=== PATIENT | male | born 1955 | race Caucasian/White ===

== ENCOUNTER → 2020-09-04 09:54 | Outpatient (BNVA) | payer OTHER, SELFPAY | PROVIDERS: PCP Internal Medicine Pulmonary Disease; Visit Provider Internal Medicine ==

== ENCOUNTER 2020-10-21 06:35 | Outpatient (REF) | payer OTHER, SELFPAY | END 2020-10-21 06:36 | disposition home or self-care (01) | LOC: HO.RADIR 06:35 | PROVIDERS: Visit Provider Internal Medicine | DX: G57.92 Unspecified mononeuropathy of left lower limb (principal) | CPT/HCPCS: 64450 ==

== ENCOUNTER → 2020-10-26 12:58 | Outpatient (BNVA) | payer OTHER, SELFPAY | PROVIDERS: PCP Internal Medicine Pulmonary Disease; Visit Provider Internal Medicine ==

== ENCOUNTER 2021-02-10 06:16 | Outpatient (REF) | payer MEDICARE, OTHER, SELFPAY | END 2021-02-10 06:17 | disposition home or self-care (01) | LOC: HO.RADIR 06:16 | PROVIDERS: Visit Provider Internal Medicine | DX: G57.90 Unspecified mononeuropathy of unspecified lower limb (principal) | CPT/HCPCS: 64555; C1778 ==

== ENCOUNTER → 2021-02-15 | Outpatient (BNVA) | payer MEDICARE, OTHER, SELFPAY | PROVIDERS: PCP Nurse Practitioner Family; Visit Provider Internal Medicine | DX: G57.90 Unspecified mononeuropathy of unspecified lower limb (principal) | CPT/HCPCS: 99212 ==

== ENCOUNTER → 2021-02-19 09:17 | Outpatient (BNVA) | payer MEDICARE, OTHER, SELFPAY | PROVIDERS: PCP Nurse Practitioner Family; Visit Provider Internal Medicine | DX: G57.90 Unspecified mononeuropathy of unspecified lower limb (principal) | CPT/HCPCS: 99212 ==

== ENCOUNTER → 2021-03-15 12:09 | Outpatient (BNVA) | payer MEDICARE, OTHER, SELFPAY | PROVIDERS: PCP Nurse Practitioner Family; Visit Provider Internal Medicine | DX: G57.90 Unspecified mononeuropathy of unspecified lower limb (principal) | CPT/HCPCS: Q3014 ==

== ENCOUNTER 2021-03-17 08:50 | Outpatient (REF) | payer MEDICARE, OTHER, SELFPAY ==
[2021-03-17 11:24] LABS: Appearance Urine CLEAR; Color Urine YELLOW; Glucose Urine UA NEG (NEG); Leukocyte Esterase Urine NEG (NEG); Nitrite Urine NEG (NEG); Specific Gravity - Urine 1.015 (1.005-1.025); Urine Blood NEG (NEG); Urine Ketones NEG (NEG); Urine Protein NEG (NEG-TRACE)
[2021-03-17 11:55] LABS: Alanine Aminotransferase 22 U/L (0-40); Albumin Level 4.3 g/dL (3.5-5.0); Alkaline Phosphatase 93 U/L (39-117); Anion Gap 11 (12-20); Aspartate Amino Transferase 24 U/L (5-37); Bilirubin Total 0.9 mg/dL (0.0-1.0); Blood Urea Nitrogen 15 mg/dL (9-16); Calcium 9.2 mg/dL (8.4-10.2); Carbon Dioxide 30 mmol/L (22-29); Chloride 99 mmol/L (96-108); Cholesterol 218 mg/dL; Estimated Glomerular Filt Rate > 60; Glucose Fasting 109 mg/dL (60-99); HDL Cholesterol 81 mg/dL; LDL Cholesterol Calculated 125 mg/dl; Potassium 4.6 mmol/L (3.3-5.1); Sodium 135 mmol/L (135-145); Total Protein 7.3 g/dL (6.5-8.0); Triglycerides 63 mg/dL
[2021-03-17 12:05] LABS: Prostate Specific Antigen Scr 0.17 ng/mL (<0.05-4.0); TSH reflex Free T4 1.76 uIU/mL (0.32-4.0)
== END 2021-03-17 08:51 | disposition home or self-care (01) ==
LOC: HO.HMGCLDS 08:50
PROVIDERS: PCP Nurse Practitioner Family; Visit Provider Nurse Practitioner Family
DX: Z00.00 Encounter for general adult medical examination without abnormal findings (principal); Z13.220 Encounter for screening for lipoid disorders; Z12.5 Encounter for screening for malignant neoplasm of prostate; Z13.29 Encounter for screening for other suspected endocrine disorder
CPT/HCPCS: 36415; 80053; 80061; 81003; 84153; 84443

== ENCOUNTER → 2021-04-05 11:03 | Outpatient (BNVA) | payer MEDICARE, OTHER, SELFPAY | PROVIDERS: PCP Nurse Practitioner Family; Visit Provider Internal Medicine | DX: G57.90 Unspecified mononeuropathy of unspecified lower limb (principal); G90.522 Complex regional pain syndrome I of left lower limb | CPT/HCPCS: 99212 ==

== ENCOUNTER 2021-04-30 15:33 | Outpatient (REF) | payer OTHER, MEDICARE, SELFPAY ==
--- NOTE | ~2021-04-30 | CT_ITS ---
EXAMINATION: CT CHEST SCREENING CLINICAL INFORMATION: Nicotine dependence. COMPARISON: None. TECHNIQUE: Multidetector volumetric CT imaging of the chest is performed without contrast using low dose technique. Additional 2-D coronal and sagittal reformatted images and axial 3-D maximum intensity projection (MIP) images are generated on the CT workstation. This CT examination was performed using dose optimization techniques as appropriate, variously including the following: *Automated exposure control *Adjustment of mA and/or kV according to patient size (this includes techniques or standardized protocols for targeted exams where dose is matched to indication/reason for exam; i.e. extremities or head) *Use of iterative reconstruction technique DLP: 47 mGy-cm FINDINGS: LUNGS: The lungs are well expanded and clear of acute pneumonic process. There is a small 3 mm subpleural nodule left upper lobe axial image 157/6. No additional pulmonary nodules, mass, consolidation, or ground-glass density seen. There is no bronchiectasis. MEDIASTINUM: The thyroid lobes are symmetric and normal. The central trachea and the bronchi are widely patent. The heart size and the great vessels are normal caliber. No abnormal sized mediastinal or hilar lymph nodes seen. The heart size and the great vessels are normal caliber. There are trace coronary artery calcifications. PLEURA: There is no pleural effusion. No pleural mass or thickening. AXILLA: No lymphadenopathy. UPPER ABDOMEN: The visualized liver, spleen and pancreas appear unremarkable. OSSEOUS STRUCTURES: There is mild ventral spondylosis mid dorsal spine with mild vacuum disc phenomena. No aggressive lytic or sclerotic process or fracture seen. CT/CT lung screening IMPRESSION: 3 mm subpleural nodule left upper lobe. ASSESSMENT: Lung-RADS category 2: Benign. RECOMMENDATION: Low-dose annual CT chest.
== END 2021-04-30 15:34 | disposition home or self-care (01) ==
LOC: HO.CT 15:33
PROVIDERS: PCP Nurse Practitioner Family; Visit Provider Physician Assistant Medical
DX: Z12.2 Encounter for screening for malignant neoplasm of respiratory organs (principal); F17.210 Nicotine dependence, cigarettes, uncomplicated
CPT/HCPCS: 71271; G0296

== ENCOUNTER 2021-05-04 10:35 | Outpatient (REF) | payer MEDICARE, SELFPAY ==
--- NOTE | ~2021-05-04 | XR_ITS ---
EXAMINATION: XR CERVICAL SPINE CLINICAL INFORMATION: Muscle spasm COMPARISON: None TECHNIQUE: 3 views of the cervical spine were obtained. FINDINGS: There is straightening of cervical lordosis with grade 1 anterior listhesis of C2 over C3 and C2-C3 over C4 with significant narrowing of C3-C4, C4-C5, C5-C6 and C6-C7 intervertebral disc spaces. There is no evidence of fracture or subluxation. Soft tissues are unremarkable. XR/XR cervical spine 3V IMPRESSION: Marked degenerative changes of cervical spine.
== END 2021-05-04 10:36 | disposition home or self-care (01) ==
LOC: HO.HMGCX 10:35
PROVIDERS: Visit Provider Internal Medicine
DX: M62.838 Other muscle spasm (principal)
CPT/HCPCS: 72040

== ENCOUNTER 2021-05-19 11:54 | Day surgery (SDC) | payer MEDICARE, SELFPAY ==
[2021-05-13 13:21] VITALS: BMI 18.8
--- NOTE | ~2021-05-19 | FL_ITS ---
EXAMINATION: XR FLUOROSCOPY WITH IMAGES CLINICAL INFORMATION: Lumbar spinal cord stimulator trial COMPARISON: None. TECHNIQUE: Fluoroscopy performed by David. Fluoroscopy time: 8.0 minutes DAP: 16.7 Gy-cm2 Images: 4 FINDINGS: 4 fluoroscopic spot views at the level of the lower thoracic spine demonstrate the distal portions of a spinal stimulator device. FL/FL guidance in OR IMPRESSION: Placement of a spinal stimulator device. Please see the operative report for further information.
[2021-05-19 12:02] VITALS: BP 154/83; PULSE 74; RESP 18; TEMP 36.7; O2SAT 99
--- NOTE | 2021-05-19 13:11 | HO.ANESPROP2 ---
[facility] Active Problems Active Problems: All Active Problems (Updated 05/13/21 @ 13:21 by Melia Geller RN) Spasm of cervical paraspinous muscle (Acute) Personal history of nicotine dependence (Acute) CRPS (complex regional pain syndrome), lower limb (Acute) Neuritis of foot (Acute) Past Medical History Medical History Anxiety disorder Back pain COVID-19 vaccine series completed CRPS (complex regional pain syndrome), lower limb History of testicular cancer Left-sided low back pain with sciatica Neuritis of foot Personal history of nicotine dependence Surgical History Surgical History History of colonoscopy (~2019) History of esophagogastroduodenoscopy (EGD) (~2019) History of orchiectomy History of Problems with Anesthesia: No Social History Social History Housing: House Patient Tobacco Use Status: Current everyday Tobacco user Tobacco use type: Cigarette Cigarettes Per Day: 6 Years Smoked: 52 e-Cigarette/Vaping Use: Currently Using Second Hand Smoke Exposure: No Advance Directives: No Advance Directives Information Provided: Yes Advance Directives on File: No service: No Current occupational status: retired and disabled Meds Allergies Allergy/AdvReac Type Severity Reaction Status Date / Time No Known Allergies Allergy Verified 05/11/21 09:41 [No Known Allergies*] Home Medications Medication Instructions Recorded Confirmed Last Taken Type finasteride 5 mg tablet 5 mg PO DAILY 09/04/20 05/13/21 Unknown History testosterone 50 mg/5 gram (1 %) 50 mg TRANSDERMAL DAILY 09/04/20 05/13/21 Unknown History transdermal gel vitamin B complex (B 1 tab PO DAILY 09/04/20 05/13/21 Unknown History Complex-Vitamin B12) melatonin 5 mg capsule 8 mg PO .HS cap 04/05/21 05/13/21 Unknown History Exam Exam Date and Time: May 19, 2021 1311 Height,Weight and Vital Signs: Height 5 ft 11 in Weight 61.235 kg Last Vital Signs Temp 98.1 F 05/19/21 12:02 Pulse 74 05/19/21 12:02 Resp 18 05/19/21 12:02 BP 154/83 H 05/19/21 12:02 Pulse Ox 99 05/19/21 12:02 Airway Mallampati Class: II TM Dist: >3cm Neck ROM: Full Loose/Missing/Broken Teeth: No Heart: RRR Lungs: CTA Assessment and Plan Assessment Anesthesia Assessment: Anesthesia Plan Discussed and Chart Reviewed Final Anesthetic Review History of Problems with Anesthesia: No NPO: Yes ASA Class: II Final Preanesthetic Review: Meds/Allgs Chart Reviewed, Consent Obtained/Reviewed and Anes Risks/Benef Reviewed Patient Risk: Low Procedure Risk: Low Anesthetic Plan Anesthetic Plan: MAC: Disposition: Standard PACU
--- NOTE | 2021-05-19 13:13 | MHC.SHP ---
Pre-Procedural Eval Section A Date of Service: 05/19/21 The patient is an INPATIENT: No Changes since office visit: Yes New Medical Problems and Yes Patient answered all questions The History & Physical has been completed within 30 days and I have reviewed it.: Yes Section B Chief Complaint: Neuritis of Foot, CRPS lower limb Relevant Family History (Specify if Yes): No Relevant Social History: None Present Medications: None Medical History: No relevant PMH History of Previous Operations: No relevant previous surgery Allergies: Allergies Allergy/AdvReac Type Severity Reaction Status Date / Time No Known Allergies Allergy Verified 05/11/21 09:41 [No Known Allergies*] Review of Systems Sugical H&P ROS: Negative: Constitution Plan Diagnosis/Plan: Unchanged I have reviewed the history and physical and performed a pertinent physical examination on my patient. No changes have occurred unless specified. Neck spasm last week secondary to cervical spondylosis. Being managed by primary care.
[2021-05-19 15:20] VITALS: BP 160/78; PULSE 56; RESP 16; TEMP 36.4; O2SAT 100
--- NOTE | 2021-05-19 15:22 | P.BOP_ITS ---
Brief Operative Note Date of Service: 05/19/21 Pre-op diagnosis: Complex regional pain syndrome, left foot Post-op diagnosis: same Procedure: Lumbar spinal cord stimulator trial lead placement Implants: Temporary SCS leads Surgeon: Arash Hernandez MD Anesthesia: MAC Was an Poured Pipe Maker used for this Procedure?: No Estimated blood loss (mL): 3 Pathology: none sent Condition: stable Disposition: PACU
--- NOTE | 2021-05-19 15:24 | W.PM.OPN ---
Operative Note Operative Note Date of Service: 05/19/21 Narrative: Percutaneous Spinal Cord Stimulator Trial, Lumbar After obtaining written consent, pre-procedure blood pressure and heart rate were recorded and are in the nursing record for review. A peripheral IV was started. Antibiotics, cefazolin 2 gram, were given intraoperatively. The patient was placed in a prone position.?The patient was sedated by the anesthesiologist. The lumbar area was widely prepped with ChloraPrep, allowed to dry and draped in sterile fashion. Fluoroscopy was used to identify the target interlaminar spaces and appropriate needle insertion sites. The skin and subcutaneous tissue was anesthetized with 1% lidocaine mixed with 0.25% bupivacaine with epinephrine. Two separate 14 gauge Coude epidural needles were then advanced from this point in a paramedian approach to the epidural space opening at L3/L4 interspace, where lost of resistance was found using air. No paresthesias were elicited with needle placement. No CSF or heme was present upon needle placement. A guide wire was then used to confirm placement into the epidural space at each level under live fluoroscopy. The 1x8 stimulator lead wire (StimCapital Float) was then threaded to the top of T12 in the left parasagittal position and bottom of T12 in the right parasagittal position under live fluoroscopy. The leads advanced midline.?The needles were then completely removed under live fluoroscopy while confirming adequate lead position. The patient was then awakened for paresthesia testing. The patient described activation of paresthesia in distribution of his bilateral lower extremities and ankles. This was deemed satisfactory from a programming standpoint. The stimulator wires were then secured with 2-0 Ticron sutures, steristrips and gauze and tegaderm for skin dressing. The patient tolerated the procedure well and no complications were encountered. Following the procedure the patient's vital signs were stable. The patient was discharged home in good condition after being given discharge instructions. Time Out: Immediately prior to the procedure, the following was verbally confirmed that there is a signed consent form and that the correct patient, planned procedure, site and side are consistent with documentation and that necessary equipment and/or blood products are available prior to the start of the case. Complications: none EBL: <2 cc
[2021-05-19 15:35] VITALS: BP 150/89; PULSE 60; RESP 16; O2SAT 100
[2021-05-19 15:50] VITALS: BP 164/82; PULSE 58; RESP 16; O2SAT 100
== END 2021-05-19 16:53 | disposition home or self-care (01) ==
PROVIDERS: PCP Internal Medicine; Visit Provider Internal Medicine
PROC: (CPT 63650; principal; 2021-05-19 13:30)
DX: G90.522 Complex regional pain syndrome I of left lower limb (principal); G57.92 Unspecified mononeuropathy of left lower limb; M54.42 Lumbago with sciatica, left side; I10 Essential (primary) hypertension; F41.1 Generalized anxiety disorder; Z79.899 Other long term (current) drug therapy; Z85.47 Personal history of malignant neoplasm of testis; F17.210 Nicotine dependence, cigarettes, uncomplicated
CPT/HCPCS: 63650 ×2; C1816; J0690; J2250

== ENCOUNTER 2021-05-20 12:29 | Outpatient (REF) | payer MEDICARE, SELFPAY ==
[2021-05-20 13:49] LABS: Blood Urea Nitrogen 14 mg/dL (9-16); Estimated Glomerular Filt Rate > 60
== END 2021-05-20 12:30 | disposition home or self-care (01) ==
LOC: HO.LAB 12:29
PROVIDERS: PCP Internal Medicine; Visit Provider Internal Medicine
DX: M62.838 Other muscle spasm (principal)
CPT/HCPCS: 36415; 82565; 84520

== ENCOUNTER → 2021-05-21 12:28 | Outpatient (BNVA) | payer MEDICARE, SELFPAY | PROVIDERS: PCP Internal Medicine; Visit Provider Internal Medicine | DX: G90.522 Complex regional pain syndrome I of left lower limb (principal); G57.92 Unspecified mononeuropathy of left lower limb; M54.42 Lumbago with sciatica, left side; F17.210 Nicotine dependence, cigarettes, uncomplicated; U07.0 Vaping-related disorder | CPT/HCPCS: 99212 ==

== ENCOUNTER 2021-05-25 14:02 | Outpatient (REF) | payer MEDICARE, SELFPAY ==
--- NOTE | ~2021-05-25 | CT_ITS ---
EXAMINATION: CT SOFT TISSUE NECK WITH CONTRAST CLINICAL INFORMATION: Other muscle spasm. COMPARISON: Plain films of the cervical spine 05/04/2021. TECHNIQUE: Following the intravenous administration of 60 mL of Omnipaque 350 intravenous contrast, helical imaging was performed in the axial plane with generation of coronal and sagittal reformatted images. This CT examination was performed using dose optimization techniques as appropriate, variously including the following: *Automated exposure control *Adjustment of mA and/or kV according to patient size (this includes techniques or standardized protocols for targeted exams where dose is matched to indication/reason for exam; i.e. extremities or head) *Use of iterative reconstruction technique DLP: 128 mGy-cm FINDINGS: No cervical adenopathy is identified. The parotid glands are homogeneous in attenuation. The submandibular glands are normal. No contour abnormality or pathologic enhancement is seen within the oral cavity or pharyngeal mucosal space. The laryngeal structures are normal. The parapharyngeal fat is preserved. The carotid sheath vasculature opacify normally. No extra mucosal soft tissue mass or fluid collection is seen. No retropharyngeal fluid collection is seen. The thyroid gland is normal. The superior mediastinum is unremarkable. The lung apices are clear. There is slight asymmetry of the contours of the sternocleidomastoid muscles, thinner on the left. Etiology is uncertain, but may be due to positioning. There is trace fluid at the left mastoid tip. The frontal sinuses are hypoplastic. The other paranasal sinuses are well-aerated. There are degenerative changes of the bilateral temporomandibular joints, more severe on the left. There is a right mandibular dental implant posteriorly. There are small emmett mandibulare. There are no periapical lucencies. The study redemonstrates multilevel spondylosis with narrowing of intervertebral disc height between C3-C4 and C6-C7. There is also a levoscoliosis at the cervicothoracic junction. There is a mild degenerative anterolisthesis of C3 on C4. There are no acute fractures or subluxations. The visualized intracranial structures are unremarkable. CT/CT soft tissue neck w con IMPRESSION: 1. There is no cervical lymphadenopathy, and no masses are demonstrated in the neck. 2. There are multilevel spondylitic changes with narrowing of intervertebral disc height, a levoscoliosis at the cervicothoracic junction and there is a degenerative anterolisthesis of C3 on C4. There are no acute fractures or subluxations. 3. There is slight asymmetry of the sternocleidomastoid muscle. Described above which may be positional. There are degenerative changes in the bilateral temporomandibular joints.
[2021-05-25] MEDS: iohexoL 350 MG/ML 100 ML INFUS..BTL 60 ML IV (14:55)
== END 2021-05-25 14:03 | disposition home or self-care (01) ==
LOC: HO.CT 14:02
PROVIDERS: Visit Provider Internal Medicine
DX: M62.838 Other muscle spasm (principal)
CPT/HCPCS: 70491; Q9967

== ENCOUNTER 2022-04-06 09:39 | Outpatient (REF) | payer MEDICARE, SELFPAY ==
[2022-04-06 11:16] LABS: Appearance Urine Cloudy; Color Urine Yellow; Glucose Urine UA Negative (Negative); Leukocyte Esterase Urine Negative (Negative); Nitrite Urine Negative (Negative); Specific Gravity - Urine 1.015 (1.005-1.025); Urine Blood Negative (Negative); Urine Ketones Negative (Negative); Urine Protein Negative (Neg-Trace)
[2022-04-06 11:23] LABS: MANUAL DIFF FLAG NO
[2022-04-06 11:33] LABS: Basophils Percent Auto 0.9 % (0-2); Eosinophils Absolute Auto 0.5 X10*3/uL (0.0-0.4); Eosinophils Percent Auto 13.4 % (0-4); Hematocrit 46.3 % (42.0-52.0); Hemoglobin 15.4 g/dl (14.0-18.0); Imm Gran Abs Auto 0.01 X10*3/uL (0.00-0.03); Imm Gran Pct Auto 0.3 % (0.0-0.4); Lymphocytes Absolute Auto 0.9 X10*3/uL (1.2-4.9); Lymphocytes Percent Auto 26.6 % (20-40); Mean Corpuscular HGB Conc 33.3 g/dl (31.0-36.0); Mean Corpuscular Hemoglobin 31.5 pg (27.0-33.0); Mean Corpuscular Volume 94.7 fL (80.0-98.0); Mean Platelet Volume 10.1 fL (9.4-12.4); Monocytes Absolute Auto 0.4 X10*3/uL (0.1-1.2); Neutrophils Absolute Auto 1.7 x10*3/uL (2.0-8.3); Neutrophils Percent Auto 48.8 % (45-73); Platelet Count 222 X10*3/uL (160-400); Red Blood Count 4.89 X10*6/uL (4.60-5.80); Red Cell Distribution Width 13.2 % (11.0-16.0); White Blood Count 3.5 X10*3/uL (4.8-10.8)
[2022-04-06 12:06] LABS: Alanine Aminotransferase 20 U/L (0-40); Albumin Level 4.2 g/dL (3.5-5.0); Alkaline Phosphatase 108 U/L (39-117); Anion Gap 13 (12-20); Aspartate Amino Transferase 27 U/L (5-37); Bilirubin Total 0.8 mg/dL (0.0-1.0); Blood Urea Nitrogen 14 mg/dL (9-16); Carbon Dioxide 28 mmol/L (22-29); Chloride 98 mmol/L (96-108); Cholesterol 213 mg/dL; Estimated Glomerular Filt Rate > 60; Glucose Fasting 110 mg/dL (60-99); HDL Cholesterol 82 mg/dL; LDL Cholesterol Calculated 121 mg/dl; Potassium 4.5 mmol/L (3.3-5.1); Sodium 134 mmol/L (135-145); Total Protein 7.1 g/dL (6.5-8.0); Triglycerides 50 mg/dL
[2022-04-06 12:24] LABS: Prostate Specific Antigen Scr 0.32 ng/mL (<0.05-4.0); TSH reflex Free T4 1.63 uIU/mL (0.32-4.0)
== END 2022-04-06 09:40 | disposition home or self-care (01) ==
LOC: HO.HMGCLDS 09:39
PROVIDERS: PCP Nurse Practitioner Family; Visit Provider Nurse Practitioner Family
DX: Z00.00 Encounter for general adult medical examination without abnormal findings (principal); Z12.5 Encounter for screening for malignant neoplasm of prostate
CPT/HCPCS: 36415; 80053; 80061; 81003; 84153; 84443; 85025

== ENCOUNTER 2022-05-26 12:55 | Outpatient (REF) | payer MEDICARE, SELFPAY ==
--- NOTE | ~2022-05-26 | CT_ITS ---
EXAMINATION: CT CHEST SCREENING CLINICAL INFORMATION: Current smoker with 50 pack year history COMPARISON: 04/30/2021 TECHNIQUE: Multidetector volumetric CT imaging of the chest is performed without contrast using low dose technique. Additional 2D coronal and sagittal reformatted images and axial 3D maximum intensity projection (MIP) images are generated on the CT workstation. This CT examination was performed using dose optimization techniques as appropriate, variously including the following: *Automated exposure control *Adjustment of mA and/or kV according to patient size (this includes techniques or standardized protocols for targeted exams where dose is matched to indication/reason for exam; i.e. extremities or head) *Use of iterative reconstruction technique DLP: 43 mGy-cm FINDINGS: LUNGS: Mild upper lobe predominant centrilobular emphysema. Stable 3 mm subpleural nodule along the left upper lobe. No suspicious pulmonary nodules. MEDIASTINUM: Normal heart size. No pericardial effusion. Great vessels normal caliber. No mediastinal, hilar or supraclavicular lymphadenopathy. CORONARY ARTERY CALCIFICATION: Present. PLEURA: There is no pleural effusion. No pleural mass or thickening. AXILLA: No lymphadenopathy. UPPER ABDOMEN: Unremarkable OSSEOUS STRUCTURES: Unremarkable. CT/CT lung screening IMPRESSION: No evidence of pulmonary malignancy. ASSESSMENT: Lung-RADS category 2: Benign RECOMMENDATION: Routine annual low-dose CT screening in 12 months.
== END 2022-05-26 12:56 | disposition home or self-care (01) ==
LOC: HO.CT 12:55
PROVIDERS: PCP Nurse Practitioner Family; Visit Provider Physician Assistant Medical
DX: Z12.2 Encounter for screening for malignant neoplasm of respiratory organs (principal); F17.210 Nicotine dependence, cigarettes, uncomplicated
CPT/HCPCS: 71271

== ENCOUNTER 2022-06-10 10:08 | Outpatient (REF) | payer MEDICARE, SELFPAY ==
[2022-06-10 11:33] LABS: MANUAL DIFF FLAG NO
[2022-06-10 11:56] LABS: Basophils Absolute Auto 0.1 X10*3/uL (0.0-0.2); Basophils Percent Auto 1.2 % (0-2); Eosinophils Absolute Auto 0.5 X10*3/uL (0.0-0.4); Eosinophils Percent Auto 12.5 % (0-4); Hematocrit 42.9 % (42.0-52.0); Hemoglobin 14.2 g/dl (14.0-18.0); Imm Gran Abs Auto 0.01 X10*3/uL (0.00-0.03); Imm Gran Pct Auto 0.2 % (0.0-0.4); Lymphocytes Absolute Auto 1.1 X10*3/uL (1.2-4.9); Lymphocytes Percent Auto 25.2 % (20-40); Mean Corpuscular HGB Conc 33.1 g/dl (31.0-36.0); Mean Corpuscular Hemoglobin 31.5 pg (27.0-33.0); Mean Corpuscular Volume 95.1 fL (80.0-98.0); Mean Platelet Volume 10.1 fL (9.4-12.4); Monocytes Absolute Auto 0.6 X10*3/uL (0.1-1.2); Monocytes Percent Auto 12.7 % (2-11); Neutrophils Absolute Auto 2.1 x10*3/uL (2.0-8.3); Neutrophils Percent Auto 48.2 % (45-73); Platelet Count 229 X10*3/uL (160-400); Red Blood Count 4.51 X10*6/uL (4.60-5.80); White Blood Count 4.3 X10*3/uL (4.8-10.8)
== END 2022-06-10 10:09 | disposition home or self-care (01) ==
LOC: HO.HMGCLDS 10:08
PROVIDERS: PCP Nurse Practitioner Family; Visit Provider Nurse Practitioner Family
DX: D72.819 Decreased white blood cell count, unspecified (principal)
CPT/HCPCS: 36415; 85025

== ENCOUNTER 2022-08-31 10:35 | Outpatient (REF) | payer MEDICARE, SELFPAY ==
[2022-08-31 13:57] LABS: MANUAL DIFF FLAG NO
[2022-08-31 14:13] LABS: Basophils Absolute Auto 0.1 X10*3/uL (0.0-0.2); Basophils Percent Auto 1.1 % (0-2); Eosinophils Absolute Auto 0.5 X10*3/uL (0.0-0.4); Eosinophils Percent Auto 11.1 % (0-4); Hematocrit 44.8 % (42.0-52.0); Hemoglobin 14.7 g/dl (14.0-18.0); Imm Gran Abs Auto 0.01 X10*3/uL (0.00-0.03); Imm Gran Pct Auto 0.2 % (0.0-0.4); Immature Retic Fraction 5.8 % (2.3-13.4); Lymphocytes Absolute Auto 0.9 X10*3/uL (1.2-4.9); Lymphocytes Percent Auto 20.7 % (20-40); Mean Corpuscular HGB Conc 32.8 g/dl (31.0-36.0); Mean Corpuscular Hemoglobin 31.3 pg (27.0-33.0); Mean Corpuscular Volume 95.3 fL (80.0-98.0); Mean Platelet Volume 10.2 fL (9.4-12.4); Monocytes Absolute Auto 0.5 X10*3/uL (0.1-1.2); Monocytes Percent Auto 10.2 % (2-11); Neutrophils Absolute Auto 2.5 x10*3/uL (2.0-8.3); Neutrophils Percent Auto 56.7 % (45-73); Platelet Count 245 X10*3/uL (160-400); Red Cell Distribution Width 13.3 % (11.0-16.0); Reticulocyte Percent 1.3 % (0.5-1.8); Reticulocytes Absolute 0.059 X10*6/uL (0.026-0.095); White Blood Count 4.4 X10*3/uL (4.8-10.8)
== END 2022-08-31 10:36 | disposition home or self-care (01) ==
LOC: HO.HMGCLDS 10:35
PROVIDERS: PCP Nurse Practitioner Family; Visit Provider Nurse Practitioner Family
DX: D72.819 Decreased white blood cell count, unspecified (principal)
CPT/HCPCS: 36415; 85025; 85045

== ENCOUNTER 2022-10-19 07:45 | Outpatient (AMB) | payer MEDICARE, SELFPAY ==
--- NOTE | 2022-10-19 07:29 | A.OFFVIS_ITS ---
Intake Intake Visit Reasons: med changes Allergies No Known Allergies [No Known Allergies*] Allergy (Verified 10/19/22 07:36) Medication List - Last Reconciled 10/19/22 by LOUISE Kang amitriptyline 10 mg PO BEDTIME 90 days cholecalciferol (vitamin D3) 50 mcg PO DAILY finasteride 5 mg PO DAILY lidocaine HCl 1% (Burn Relief with Lidocaine) 1 ea topical BID PRN 30 days magnesium 250 mg PO DAILY melatonin 8 mg PO .HS multivitamin (Daily Multi-Vitamin tablet) 1 tab PO DAILY pregabalin (Lyrica) 75 mg PO BID 30 days testosterone 50 mg transdermal DAILY vitamin B complex (B Complex-Vitamin B12 tablet) 1 tab PO DAILY HPI med changes HPI Details Patient has a history of neuritis of his left foot, CRPS, he is currently on gabapentin, which does not seem to be helping. He is interested in Lyrica. Seen he has tried multiple other procedures and medications with little relief, I will slowly have him taper down his gabapentin and then start his Lyrica after finished with his last of his gabapentin. [facility] Medical History Anterolisthesis of cervical spine Anxiety disorder Back pain COVID-19 vaccine series completed CRPS (complex regional pain syndrome), lower limb History of testicular cancer Left-sided low back pain with sciatica Neuritis of foot Personal history of nicotine dependence Surgical History History of colonoscopy (~2019) History of esophagogastroduodenoscopy (EGD) (~2019) History of orchiectomy Social History Housing: House Patient Tobacco Use Status: Current everyday Tobacco user Tobacco use type: Cigarette Cigarettes Per Day: 6 Years Smoked: 52 e-Cigarette/Vaping Use: Currently Using Second Hand Smoke Exposure: No service: No Current occupational status: retired and disabled Cognitive needs: No Hearing needs: No Vision needs: No Assessment & Plan Assessment & Plan (1) CRPS (complex regional pain syndrome), lower limb: Code(s): G90.529 - Complex regional pain syndrome I of unspecified lower limb Qualifiers: Complex regional pain syndrome type: type I Laterality: left Qualified Code(s): G90.522 - Complex regional pain syndrome I of left lower limb (2) Neuritis of foot: Code(s): G57.90 - Unspecified mononeuropathy of unspecified lower limb Qualifiers: Laterality: left Qualified Code(s): G57.92 - Unspecified mononeuropathy of left lower limb Medications: New pregabalin (Lyrica) 75 mg PO BID 60 caps 1RF 30 days Discontinued gabapentin Discontinued Reason: Doctor's Order 900 mg (3 x 300 mg) PO .4 times a day 30 days 360 caps 2RF Telehealth Telehealth Location of provider rendering services: practice address Location of patient: address on file Patient Identification confirmed using: Name, : Yes Telehealth method: voice only Patient verbally consented to treatment: Yes Patient verbally consented to billing insurance company: Yes Patient informed of any privacy concerns related to visit: Yes Minutes spent on Phone/Video with Pt.: 10 Coding Level of Care Code Tele Est Pt Level 3 (70527) Diagnoses CRPS (complex regional pain syndrome), lower limb G90.522 Complex regional pain syndrome type: type I Laterality: left Neuritis of foot G57.92 Laterality: left
== END 2022-10-19 07:56 | disposition home or self-care (01) ==
PROVIDERS: PCP Nurse Practitioner Family; Visit Provider Nurse Practitioner Family
DX: G90.522 Complex regional pain syndrome I of left lower limb (principal); G57.92 Unspecified mononeuropathy of left lower limb
CPT/HCPCS: G2012

== ENCOUNTER 2022-12-28 10:18 | Outpatient (AMB) | payer MEDICARE, SELFPAY ==
--- NOTE | 2022-12-28 10:19 | MHC.PC.OV ---
Vital Signs 12/28/22 10:21 Height 5 ft 10 in Weight 137 lb BMI 19.7 BP 124/70 Blood Pressure Location Rt brachial Position Sitting Pulse 62 Pulse Source Pulse Oximeter Pulse Oximetry (%) 96 Oxygen Delivery Method Room Air Intake Visit Reasons: 3 month follow up Allergies No Known Allergies [No Known Allergies*] Allergy (Verified 12/28/22 10:26) Medication List - Last Reconciled 12/28/22 by LOUISE Kang amitriptyline 10 mg PO BEDTIME 90 days cholecalciferol (vitamin D3) 50 mcg PO DAILY finasteride 5 mg PO DAILY melatonin 8 mg PO .HS multivitamin (Daily Multi-Vitamin tablet) 1 tab PO DAILY pregabalin 150 mg PO BID 30 days testosterone 50 mg transdermal DAILY vitamin B complex (B Complex-Vitamin B12 tablet) 1 tab PO DAILY Tobacco use date assessed: 09/07/22 Fall risk assessment: No Falls in past year Last assessed Fall Risk: 12/28/22 HPI 3 month follow up HPI Details CRPS of left foot: Pt reports ongoing pain that is worse with weight bearing. He has seen specialists including pain management in the past. He has tried several treatments with no relief. Pt is currently taking lyrica 150mg bid. He reports that this helps minimally but not often. Will increase this to 200mg bid. Also recommended alpha lipoic acid. Denies fever, chills, and dizziness. Will order labs for pt's upcoming PE. [facility] Medical History Anterolisthesis of cervical spine Anxiety disorder Back pain COVID-19 vaccine series completed CRPS (complex regional pain syndrome), lower limb History of testicular cancer Left-sided low back pain with sciatica Neuritis of foot Personal history of nicotine dependence Surgical History History of colonoscopy (~2019) History of esophagogastroduodenoscopy (EGD) (~2019) History of orchiectomy Social History Housing: House Patient Tobacco Use Status: Current everyday Tobacco user Tobacco use type: Cigarette Cigarettes Per Day: 6 Years Smoked: 52 e-Cigarette/Vaping Use: Currently Using Second Hand Smoke Exposure: No service: No Current occupational status: retired and disabled Cognitive needs: No Hearing needs: No Vision needs: No Questionnaire Thrive Questionnaire Date Thrive assessed: 06/15/21 MEERA-7 AMB Questionnaire MEERA-7 Date MEERA - 7 assessed: 06/15/21 Source: Developed by Drs. Sarwat Lim, Adelia Sandhu, Dionicio Sunshine and colleagues, with an educational delmar from [employer]. Review of Systems Const Reports as per HPI Physical exam (Primary Care) Vital Signs: Last Vital Signs Pulse 62 12/28/22 10:21 BP 124/70 12/28/22 10:21 Pulse Ox 96 12/28/22 10:21 Oxygen Delivery Method Room Air 12/28/22 10:21 BMI result Body Mass Index 19.7 Tobacco/Smoking Status: Tobacco use Status Tobacco use date assessed 09/07/22 12/28/22 10:24 Patient Tobacco Use Status Current everyday Tobacco 12/28/22 10:24 Tobacco use type Cigarette 12/28/22 10:24 e-Cigarette/Vaping Use Currently Using 12/28/22 10:24 Thrive Assessment: Date of Thrive Assessment Date Thrive assessed 06/15/21 12/28/22 10:24 Const General: cooperative Orientation/consciousness: patient oriented x3 Resp Other: lungs diminished though moving air bilat Effort & Inspection: normal respiratory effort Cardio Rate: regular rate Rhythm: regular rhythm Heart sounds: S1 normal heart sound present and S2 normal heart sound present Neuro General: patient oriented x3 Psych Appearance: grossly normal Mental Status: mental status grossly normal Speech and movement: Normal speech and movement present Affect: normal affect Attitude: cooperative Thought process: Normal thought process present Thought content: Normal thought content present Insight: Good insight present (Psych) Judgement: Good judgement present (Psych) Assessment and Plan Assessment & Plan (1) Physical exam: Code(s): Z00.00 - Encounter for general adult medical examination without abnormal findings Plan: Labs ordered (2) Screening PSA (prostate specific antigen): Code(s): Z12.5 - Encounter for screening for malignant neoplasm of prostate Plan: PSA ordered Plan The patient agreed to the use of a medical van driver for this encounter. Scribed for LOUISE Shepherd by trav Watt scribe, on 12/28/2022 at 10:30 EST Orders: Orders UA CC w/rflx Micro + Cult Today Z00.00 - Encounter for general adult medical examination without abnormal findings Lipid Panel Today Z00.00 - Encounter for general adult medical examination without abnormal findings Complete Blood Count Auto Diff Today Z00.00 - Encounter for general adult medical examination without abnormal findings Comprehensive Deland. Panel Fast Today Z00.00 - Encounter for general adult medical examination without abnormal findings TSH reflex Free T4 Today Z00.00 - Encounter for general adult medical examination without abnormal findings Prostate Specific Antigen Scr Today Z12.5 - Encounter for screening for malignant neoplasm of prostate Medications: Changed From pregabalin 150 mg PO BID 30 days 60 caps 1RF To pregabalin 200 mg PO BID 30 days 60 caps 1RF Coding Level of Care Code Est Pt Level 3 (46784) Diagnoses Physical exam Z00.00 Screening PSA (prostate specific antigen) Z12.5
[2022-12-28 10:21] VITALS: BP 124/70; PULSE 62; O2SAT 96; BMI 19.7
== END 2022-12-28 10:54 | disposition home or self-care (01) ==
PROVIDERS: PCP Nurse Practitioner Family; Visit Provider Nurse Practitioner Family
DX: G90.529 Complex regional pain syndrome I of unspecified lower limb (principal); Z12.5 Encounter for screening for malignant neoplasm of prostate
CPT/HCPCS: 99213

== ENCOUNTER 2023-04-04 11:03 | Outpatient (AMB) | payer MEDICARE, SELFPAY ==
--- NOTE | 2023-04-04 11:16 | MHC.PC.OV ---
Vital Signs 04/04/23 11:17 Height 5 ft 10 in Weight 137 lb 4 oz BMI 19.7 BP 120/72 Blood Pressure Location Lt brachial Position Sitting Pulse 56 Pulse Source Pulse Oximeter Pulse Oximetry (%) 97 Oxygen Delivery Method Room Air Intake Visit Reasons: Annual PE Intake Note: Pt is here for his Annual PE Allergies No Known Allergies [No Known Allergies*] Allergy (Verified 04/04/23 11:19) Medication List - Last Reconciled 04/04/23 by LOUISE Kang amitriptyline 10 mg PO BEDTIME 90 days cholecalciferol (vitamin D3) 50 mcg PO DAILY finasteride 5 mg PO DAILY melatonin 8 mg PO .HS multivitamin (Daily Multi-Vitamin tablet) 1 tab PO DAILY pregabalin 200 mg PO BID 30 days testosterone 50 mg transdermal DAILY vitamin B complex (B Complex-Vitamin B12 tablet) 1 tab PO DAILY Tobacco use date assessed: 04/04/23 Fall risk assessment: 1 Fall in past year Last assessed Fall Risk: 04/04/23 Dental Screening Dental Screen Date: 04/04/23 Did you have a dental visit in the last 12 months?: Yes Did you have a dental problem in the last 6 months where you did not have access to dental care?: No Was dental information given to patient?: Patient has dentist HPI Annual PE HPI Details Pt is here for a PE. Labs have been ordered. Colon screen is up to date. Due for PSA, this has been ordered. Denies dribbling with urination, weak stream, and frequent nocturia. Pt follows up with urology. Pt is a smoker, part of the low-dose CT program, due for repeat in May. Pt has a hx of CRPS of his left foot. He is taking lyrica 200mg bid for this currently, though does ? it is helping, considering stopping this, which a taper was recommended before DCing. [facility] Medical History Anterolisthesis of cervical spine Anxiety disorder Back pain COVID-19 vaccine series completed CRPS (complex regional pain syndrome), lower limb History of testicular cancer Left-sided low back pain with sciatica Neuritis of foot Personal history of nicotine dependence Surgical History History of esophagogastroduodenoscopy (EGD) (~2019) History of colonoscopy (~2019) History of orchiectomy Social History Housing: House Patient Tobacco Use Status: Current everyday Tobacco user Tobacco use type: Cigarette Cigarettes Per Day: 6 Years Smoked: 52 e-Cigarette/Vaping Use: Currently Using Second Hand Smoke Exposure: No service: No Current occupational status: retired and disabled Cognitive needs: No Hearing needs: No Vision needs: No Questionnaire PHQ-9 Over the last 2 weeks, how often have you been bothered by any of the following problems? 1. Little interest or pleasure in doing things: several days 2. Feeling down, depressed, or hopeless: several days 3. Trouble falling or staying asleep, or sleeping too much: several days 4. Feeling tired or having little energy: several days 5. Poor appetite or overeating: not at all 6. Feeling bad about yourself - or that you are a failure or have let yourself or your family down: not at all 7. Trouble concentrating on things, such as reading the newspaper or watching television: several days 8. Moving or speaking so slowly that other people could have noticed. Or the opposite - being so fidgety or restless that you have been moving around a lot more than usual: several days 9. Thoughts that you would be better off or of hurting yourself in some way: not at all Total score: 6 Depression Screening Interpretation: Negative Depression Screening Done: Yes 22895 - PHQ-9 Billing: Yes Source: Developed by Drs. Sarwat Lim, Adelia Sandhu, Dionicio Sunshine and colleagues, with an educational delmar from [employer]. Thrive Questionnaire Date Thrive assessed: 04/04/23 I am a: Patient What is your living situation today?: I have a steady place to live Within the past 12 months, did the food you bought not last and you didn't have the money to get more?: Never true Within the past 12 months, did you worry whether your food would run out before you got money to buy more?: Never true Do you have trouble paying for medicines?: No Do you have trouble getting transportation to medical appointments?: No Do you have trouble paying your heating and electricity bill?: No Do you have trouble taking care of your child, family member or friend?: No Do you have trouble with day-to-day activities such as bathing, preparing meals, shopping, managing finances, etc.?: No Are you currently unemployed and looking for a job?: No Are you interested in more education?: No THRIVE Score: 0 AUDIT C Alcohol Use Questionnaire (AUDIT-C) 1. How often do you have a drink containing alcohol?: 2-3 times a week 2. How many drinks containing alcohol do you have on a typical day when you are drinking?: 5 or 6 3. How often do you have six or more drinks on one occasion?: Weekly Total Score: 8 MEERA-7 AMB Questionnaire MEERA-7 Date MEERA - 7 assessed: 04/04/23 Feeling nervous, anxious, or on edge: 1 = Several days Not being able to stop or control worryin = Several days Worrying too much about different things: 1 = Several days Trouble relaxin = Several days Being so restless that it is hard to sit still: 1 = Several days Becoming easily annoyed or irritable: 1 = Several days Feeling afraid as if something awful might happen: 0 = Not at all Total MEERA-7 score (0-4 normal; 5-9 mild; 10-14 moderate; 15-21 severe): 6 Source: Developed by Drs. Sarwat Lim, Adelia Sandhu, Dionicio Sunshine and colleagues, with an educational delmar from [employer]. Review of Systems Const Denies chills and Denies fever(s) Eyes Denies blurry vision ENT Denies vertigo, Denies dizziness and Denies sore throat Card Denies chest pain at rest, Denies chest pain with activity, Denies diaphoresis, Denies dyspnea and Denies dyspnea on exertion Resp Denies cough, Denies dyspnea, Denies dyspnea on exertion and Denies wheezing GI Denies abdominal pain, Denies melena, Denies hematochezia, Denies constipation, Denies diarrhea and Denies loose stools Denies hematuria Musc Denies numbness and Denies tingling Skin/Breast Denies lesions Neuro Denies vertigo, Denies dizziness, Denies numbness and Denies tingling Psych Denies anxiety, Denies depression, Denies homicidal ideation, Denies suicidal ideation and Denies other (substance abuse) Aller/Immun Denies wheezing Physical exam (Primary Care) Vital Signs: Last Vital Signs Pulse 56 04/04/23 11:17 BP 120/72 04/04/23 11:17 Pulse Ox 97 04/04/23 11:17 Oxygen Delivery Method Room Air 04/04/23 11:17 BMI result Body Mass Index 19.7 Tobacco/Smoking Status: Tobacco use Status Tobacco use date assessed 04/04/23 04/04/23 11:23 Patient Tobacco Use Status Current everyday Tobacco 04/04/23 11:16 Tobacco use type Cigarette 04/04/23 11:16 e-Cigarette/Vaping Use Currently Using 04/04/23 11:16 PHQ-9: PHQ-9 Score PHQ-9: Total score 6 04/04/23 12:21 Depression Screening Interpretation: Negative Thrive Assessment: Date of Thrive Assessment Date Thrive assessed 04/04/23 04/04/23 12:01 Const General: cooperative Nutritional Appearance: well nourished Orientation/consciousness: patient oriented x3 HENMT Head: Yes normal to inspection, Yes normocephalic and Yes atraumatic Ears: TM's normal bilaterally Eyes General: appearance normal, both eyes and all related structures Alignment and Position: alignment normal and position normal Neck Neck: Yes normal visual inspection and Yes no lymphadenopathy Thyroid: Thyroid normal Resp Effort & Inspection: normal respiratory effort Auscultation: clear to auscultation bilaterally Cardio Rate: regular rate Rhythm: regular rhythm Heart sounds: S1 normal heart sound present, S2 normal heart sound present and Murmur heart sound present systolic (faint) GI Palpation (GI): Soft to palpation and nontender Auscultation: normal bowel sounds Skin Rashes: no rashes Neuro General: patient oriented x3, moves all extremities, no focal motor deficits and deep tendon reflexes 2+ bilaterally Romberg Test: Negative Psych Appearance: grossly normal Mental Status: mental status grossly normal Speech and movement: Normal speech and movement present Affect: normal affect Attitude: cooperative Thought process: Normal thought process present Thought content: Normal thought content present Insight: Good insight present (Psych) Judgement: Good judgement present (Psych) Assessment and Plan Assessment & Plan (1) Smoker: Code(s): F17.200 - Nicotine dependence, unspecified, uncomplicated (2) Physical exam: Code(s): Z00.00 - Encounter for general adult medical examination without abnormal findings Plan: labs already ordered previously Plan The patient agreed to the use of a rn medical inpatient services for this encounter. Scribed for LOUISE Shepherd by Audelia Brown rn medical inpatient services, on 04/04/2023 at 11:35 EST. Orders: Orders CA echo transthoracic complete Today F17.200 - Nicotine dependence, unspecified, uncomplicated, R01.1 - Cardiac murmur, unspecified AMB EKG-In Office Today F17.200 - Nicotine dependence, unspecified, uncomplicated, Z00.00 - Encounter for general adult medical examination without abnormal findings Coding Level of Care Code Est Pt Prev Care >65y(27052) Diagnoses Smoker F17.200 Physical exam Z00.00
[2023-04-04 11:17] VITALS: BP 120/72; PULSE 56; O2SAT 97; BMI 19.7
== END 2023-04-04 12:25 | disposition home or self-care (01) ==
PROVIDERS: PCP Nurse Practitioner Family; Visit Provider Nurse Practitioner Family
DX: F17.200 Nicotine dependence, unspecified, uncomplicated (principal); Z00.00 Encounter for general adult medical examination without abnormal findings
CPT/HCPCS: 99397

== ENCOUNTER → 2023-05-03 08:59 | Outpatient (REF) | payer MEDICARE, SELFPAY ==
--- NOTE | 2023-05-03 09:03 | CA_ITS ---
Transthoracic Echocardiogram Patient (Last, First, Middle): Huber Sr, Gender: Male Date of : 1955 Age: 68 Procedure Date: 05/03/2023 Procedure Type: Transthoracic Echocardiogram Location: OP Height: 175.26 cm Weight: 61.24 kg BSA: 1.75 m2 Heart Rate: bpm BP: 122 / 60 mmHg Educational Manager: TO Referring MD: Jayant Singh [facility] Geoscientist: Rubén Herron MD Symptoms: R01.1 - Cardiac murmur, unspecified Study Quality: Good ECG Rhythm: Sinus Conclusions: - 1. Normal LV systolic function with LVEF of 55-60% with impaired relaxation filling pattern 2. Early mild aortic stenosis with trace aortic regurgitation 3. Normal RV systolic pressure 4. Upper limits of normal ascending aortic size 5. No pericardial effusion Findings Left Ventricle Normal left ventricular size, thickness, and systolic function. The visually estimated ejection fraction is between 55-60%. Spectral Doppler is indicative of an impaired relaxation filling pattern. E/E prime ratio is between 8 and 15 consistent with indeterminate filling pressures. Peak GLS is -19.1%, within normal limits. Right Ventricle Normal right ventricular cavity size and systolic function. Atria The left atrium is likely dilated. There is no evidence of interatrial shunt. The right atrium is likely dilated. Aortic Valve There is mild calcification of the aortic valve. There is mild aortic valve stenosis. The peak aortic gradient is 14 mmHg.The mean gradient is 7 mmHg. The aortic valve area is 1.81 cm2. There is trace (trivial) aortic valve regurgitation. Mitral Valve Normal mitral valve structure and function. There is trace mitral valve regurgitation. There is no mitral valve stenosis. Pulmonic Valve The pulmonic valve is likely normal. Tricuspid Valve Normal tricuspid valve structure. There is trace tricuspid valve regurgitation. The right ventricular systolic pressure is normal. The right ventricular systolic pressure is 26 mmHg. Normal right atrial pressure. There is no evidence of pulmonary hypertension. Great Vessels The pulmonary artery was not well visualized. Venous The inferior vena cava is normal in size and collapses greater than 50% with inspiration. Pericardium/Pleural There is no evidence of pericardial effusion. Prior Study Comparison No prior study available for comparison. Measurements 2D Linear Measurements IVSd: 1.04 0.6-0.9/0.6-1.0 cm LVIDd: 5.23 3.9-5.3/4.2-5.9 cm LVIDd Index: 2.99 2.4-3.2/2.2-3.1 cm/m2 LVIDs: 3.44 2.0-3.6 cm LVPWd: 0.90 0.7-1.1 cm LA Diam: 3.70 2.7-3.8/3.0-4.0 cm LAIDs Index: 2.11 1.5-2.3 cm/m2 LV Mass: 234.25 67-162/88-224 g LV Mass Index: 133.86 43-95/49-115 g/m2 LVOT Diam: 2.30 3.0+(-)1.3 cm 2D Systolic Function EF 4C: 56.70 >55% EF 2C: 57.70 >55% EF BiP: 57.90 >55% Mitral Valve MV Pk E: 0.78 MV PK A: 0.71 MV Decel Time: 229.00 E/A: 1.10 E'Lateral: 7.29 E'Medial: 7.94 E/E' Med: 9.80 E/E' Lat: 10.60 PHT: 67.00 MVA PHT: 3.28 Decel [place]: 3.38 Aortic Valve AoV Pk Greg: 1.88 AoV Mn Greg: 1.25 AoV VTI: 0.47 AoV Pk Grad: 14.00 Aov Mn Grad: 7.00 AYAH Cont.VTI: 1.81 LVOT LVOT Pk Greg: 0.74 LVOT Mn Greg: 0.53 LVOT VTI: 0.20 LVOT Pk Grad: 2.00 LVOT Mn Grad: 1.00 LVOT Diam: 2.30 LVOT Area: 4.15 Diastolic Function MV Pk E: 0.78 MV Pk A: 0.71 E/A: 1.10 E'Medial: 7.94 E/E' Med: 9.80 E' Laterial: 7.29 E/E' Lat: 10.60 Right Ventricle TAPSE (mm): 24.30 TVS' Greg: 12.80 Tricuspid Valve TR Pk Greg: 2.38 TR Pk Grad: 23.00 RA Press: 3.00 RVSP: 26.00 Great Vessels Aorta Sinus of Valsalva: 3.62 2.0-3.5 cm Ao Asc: 3.50 2.1-3.4 cm Updated in Other Vendor System with Status of Final Rubén Herron MD electronically signed on 05/04/2023 4:24:16 PM with status of Final
== END ==
LOC: HO.CARD 08:59
PROVIDERS: Visit Provider Nurse Practitioner Family
DX: R01.1 Cardiac murmur, unspecified (principal); F17.200 Nicotine dependence, unspecified, uncomplicated
CPT/HCPCS: 93306; 93356

== ENCOUNTER → 2023-05-03 09:03 | Outpatient (BNV) | payer MEDICARE, SELFPAY | PROVIDERS: Visit Provider Internal Medicine Cardiovascular Disease | DX: I35.0 Nonrheumatic aortic (valve) stenosis (principal) | CPT/HCPCS: 93306 ==

== ENCOUNTER 2023-06-28 10:28 | Outpatient (REF) | payer MEDICARE, SELFPAY ==
--- NOTE | ~2023-06-28 | CT_ITS ---
EXAMINATION: CT CHEST SCREENING CLINICAL INFORMATION: Nicotine dependence, cigarettes, uncomplicated. The patient is a current smoker with a 50 pack-year history of smoking. COMPARISON: CT chest 05/26/2022. TECHNIQUE: Multidetector volumetric CT imaging of the chest is performed without contrast using low dose technique. Additional 2D coronal and sagittal reformatted images and axial 3D maximum intensity projection (MIP) images are generated on the CT workstation. This CT examination was performed using dose optimization techniques as appropriate, variously including the following: *Automated exposure control *Adjustment of mA and/or kV according to patient size (this includes techniques or standardized protocols for targeted exams where dose is matched to indication/reason for exam; i.e. extremities or head) *Use of iterative reconstruction technique DLP: 39 mGy-cm FINDINGS: LUNGS: The lungs are clear with no evidence of inflammation or nodules. Mild emphysema and bronchial thickening present. Bibasilar atelectasis. Stable small 3 mm left upper lobe posterolateral pleural-based nodule (5:130, compare prior 5:137). MEDIASTINUM: The mediastinum is normal. CORONARY ARTERY CALCIFICATION: None visualized on this study. PLEURA: There is no pleural effusion. No pleural mass or thickening. AXILLA: No lymphadenopathy. UPPER ABDOMEN: A small right adrenal nodule not optimally evaluated measures 11 Hounsfield units similar to prior and is consistent with a benign adenoma. OSSEOUS STRUCTURES: Unremarkable. CT/CT lung screening IMPRESSION: No evidence concerning for malignancy. ASSESSMENT: Lung-RADS category 2: Benign RECOMMENDATION: Routine annual low-dose CT screening in 12 months.
== END 2023-06-28 10:29 | disposition home or self-care (01) ==
LOC: HO.CT 10:28
PROVIDERS: PCP Nurse Practitioner Family; Visit Provider Nurse Practitioner Family
DX: Z12.2 Encounter for screening for malignant neoplasm of respiratory organs (principal); F17.210 Nicotine dependence, cigarettes, uncomplicated
CPT/HCPCS: 71271

== ENCOUNTER 2023-08-12 10:13 | Emergency (ER) | payer MEDICARE, SELFPAY ==
--- NOTE | ~2023-08-12 | XR_ITS ---
EXAMINATION: XR THORACIC SPINE CLINICAL INFORMATION: Fall. Evaluate for fracture. COMPARISON: Chest CT from 06/28/2023. CT neck exam from 05/25/2021. TECHNIQUE: 3 views of the thoracic spine were obtained. FINDINGS: The thoracic vertebra have normal height and alignment. The anterior and posterior elements have an intact appearance on this radiographic examination. No thoracic compression fracture. Chronic multilevel facet arthropathy and multilevel degenerative disc disease of the cervical spine. Findings include chronic severe facet arthropathy at C2-C3 and approximately 0.5 cm anterolisthesis of C2 on C3 (worse compared to 05/25/2021). The chronic degenerative anterolisthesis of C3 on C4 is unchanged. XR/XR thoracic spine 3V IMPRESSION: * No evidence of thoracic spine fracture or thoracic vertebral subluxation. * Degenerative disc disease at C3-C4, C4-C5, C5-C6 and C6-C7. * Chronic multilevel facet arthropathy of the cervical spine and interval worsening anterior subluxation of C2 on C3 compared to 05/25/2021.
--- NOTE | ~2023-08-12 | XR_ITS ---
EXAMINATION: XR HAND/WRIST, LEFT CLINICAL INFORMATION: Fall. Rule out fracture. COMPARISON: None TECHNIQUE: PA, lateral, oblique, and scaphoid views of the left hand and wrist. FINDINGS: There is a comminuted intra-articular fracture of the distal radius with slight dorsal impaction and loss of the anatomic volar tilt of the distal radius. Dorsal tilt of the distal radial articular surface measures approximately 5 mm. Bones are osteopenic. There is slight dorsal subluxation of the scaphoid relative to the distal radius. Soft tissues are swollen. No appreciable carpal fractures. Distal ulna appears intact. XR/XR hand wrist LT IMPRESSION: Comminuted intra-articular distal radial fracture with dorsal tilt of the distal radial articular surface.
--- NOTE | ~2023-08-12 | CT_ITS ---
EXAMINATION: CT SOFT TISSUE NECK WITH CONTRAST CLINICAL INFORMATION: Left anterolateral neck swelling post fall COMPARISON: Correlation is made with CT chest 06/28/2023 TECHNIQUE: Following the administration of 60 mL of Omnipaque 350 intravenous contrast, helical imaging was performed in the axial plane with generation of coronal and sagittal reformatted images. This CT examination was performed using dose optimization techniques as appropriate, variously including the following: *Automated exposure control. *Adjustment of mA and/or kV according to patient size (this includes techniques or standardized protocols for targeted exams where dose is matched to indication/reason for exam; i.e. extremities or head). *Use of iterative reconstruction technique. DLP: 425 mGy-cm. FINDINGS: Nasopharynx/Skull Base: The fat planes at the skull base and the soft tissues of the nasopharynx are within normal limits. The paranasal sinuses are well-aerated. Sclerosis of the left mastoid tip. Suprahyoid Neck: Streak artifact from dental amalgam partially degrades evaluation the oral cavity/oropharynx. Nathrop tonsilliths are noted. The parotid and submandibular glands are within normal limits. No definite exophytic mass/lesion is visualized. Infrahyoid Neck: The hypopharynx, larynx, and proximal subglottic airway are within normal limits. Thyroid: Subcentimeter hypodense left thyroid nodule for which no imaging follow-up is recommended per size criteria. Nodes: No significant cervical lymph nodes by CT size criteria. Lung Apices: Biapical pleural parenchymal scarring. Vascular Structures:Atherosclerosis at the carotid bulbs and proximal internal carotid arteries without flow-limiting stenosis. Dominant left vertebral artery. Prominent vertebrobasilar tortuosity. Osseous Structures: Degenerative changes of the left greater the right temporal mandibular joints. Other Findings: Intracranial atherosclerotic calcification is noted. Otherwise, limited intracranial evaluation is within normal limits. There is soft tissue swelling along the left superior/lateral neck with asymmetric enlargement of the left scalene musculature with faint hyperdensity in surrounding hypodensity. CT/CT soft tissue neck w IV con IMPRESSION: Soft tissue stranding along the left neck is likely posttraumatic. Additionally, there is asymmetric enlargement of the left scalene muscle with internal hyperdensity and hypodensity that likely represents an intramuscular hematoma with surrounding edema given reported history of trauma.
[2023-08-12 10:15] VITALS: BP 165/85; PULSE 81; RESP 18; TEMP 36.6; O2SAT 98; BMI 19.9
--- NOTE | 2023-08-12 11:16 | ED.GENADULT ---
HPI - General Adult General Chief complaint: General Medical Stated complaint: neck pain/RT arm pain s/p fall Time Seen by Provider: 08/12/23 11:17 History of Present Illness HPI narrative: Patient complains of neck pain trapezius pain and upper back pain on the left side as well as left hand and wrist pain as well as the site of is neck on the left side being swollen and bruised He had a fall 1 week ago where he was carrying something down the stairs and then fell down the stairs He later went to an urgent care where they x-rayed his neck and found that he had fracture of left C7 transverse process, as well as a broken left wrist He has not followed up with his doctor or his orthopedist, he does have a splint in place as well as a soft collar for his neck He denies any radiation of the pain there is no numbness weakness or tingling 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 there is no problem ambulating there is no changes to bowel or bladder He says he did not hit his head he has no headache no confusion no loss of consciousness no feeling of faintness or being faint There were no preceding symptoms it was a simple trip and fall he never had any dizziness or presyncope before the fall He has no chest pain no abdominal pain The reason he comes today as it is very painful and he has not sure whether he should follow-up for his arm and he has worried about the lump on the left side of his neck Related Data Home Medications ?Medication ?Instructions ?Recorded ?Confirmed finasteride 5 mg tablet 5 mg PO DAILY 09/04/20 04/04/23 testosterone 50 mg/5 gram (1 %) 50 mg transdermal DAILY 09/04/20 04/04/23 transdermal gel vitamin B complex (B 1 tab PO DAILY 09/04/20 04/04/23 Complex-Vitamin B12 tablet) melatonin 5 mg capsule 8 mg PO .HS 04/05/21 04/04/23 cholecalciferol (vitamin D3) 50 50 mcg PO DAILY 09/15/21 04/04/23 mcg (2,000 unit) capsule multivitamin (Daily Multi-Vitamin 1 tab PO DAILY 03/30/22 04/04/23 tablet) Previous Rx's ?Medication ?Instructions ?Recorded amitriptyline 10 mg tablet 10 mg PO BEDTIME 90 days #90 tabs 06/19/23 pregabalin 200 mg capsule 200 mg PO BID 30 days #60 caps 06/19/23 acetaminophen 500 mg tablet 1,000 mg (2 x 500 mg) PO QID PRN 08/12/23 pain #60 tabs bisacodyl 5 mg tablet 5 mg PO BEDTIME PRN constipation 08/12/23 #10 tabs cyclobenzaprine 5 mg tablet 5 mg PO TID PRN muscle spasm #14 08/12/23 tabs oxycodone 5 mg tablet 5 mg PO Q6H PRN pain #20 tabs 08/12/23 Allergies Allergy/AdvReac Type Severity Reaction Status Date / Time No Known Allergies Allergy Verified 08/12/23 10:18 [No Known Allergies*] [facility] Past Medical History Source: nursing notes reviewed Medical History (Updated 08/12/23 @ 16:37 by ADALBERTO Granados) BPH (benign prostatic hyperplasia) Aortic regurgitation Aortic stenosis Anterolisthesis of cervical spine COVID-19 vaccine series completed History of testicular cancer Personal history of nicotine dependence CRPS (complex regional pain syndrome), lower limb Neuritis of foot Left-sided low back pain with sciatica Anxiety disorder Back pain Surgical History History of esophagogastroduodenoscopy (EGD) (~2019) History of colonoscopy (~2019) History of orchiectomy Social History Social History Housing: House Patient Tobacco Use Status: Current everyday Tobacco user Tobacco use type: Cigarette Cigarettes Per Day: 6 Years Smoked: 52 e-Cigarette/Vaping Use: Currently Using Second Hand Smoke Exposure: No Advance Directives: No Advance Directives Information Provided: No service: No Current occupational status: retired and disabled Cognitive needs: No Hearing needs: No Vision needs: No Physical Exam ED Vital Signs: Vital Signs - 24 hr 08/12/23 10:15 08/12/23 16:21 08/12/23 16:49 Temperature 98 F 97 F 97 F Pulse Rate 81 88 88 Respiratory Rate 18 20 20 Blood Pressure 165/85 H 149/98 H 149/98 H Pulse Oximetry 98 96 96 Oxygen Delivery Method Room Air Room Air Room Air BMI result Body Mass Index 19.9 General appearance is no acute distress Head is normocephalic atraumatic, there are no defects or hematomas on the scalp, there is no raccoon eyes or neal sign there is no tenderness on the scalp or the bones of the face which are normal in appearance No evidence of head or facial trauma The neck exam on the left side of his neck there is a tender mass, it does not impair breathing or swallowing it is lateral neck with ecchymosis and some dependent ecchymosis coming down towards the clavicle and the front of the neck There is tenderness left lateral and some midline tenderness of the cervical spine The chest wall is nontender, no ecchymosis on the chest, lung exam lungs are clear with full symmetric equal breath sounds Abdomen soft nontender The back exam there is tenderness diffusely in the upper back, no lower back tenderness Extremities the left wrist is tender and swollen, skin is intact it is neurovascular intact distal, exam was done after removing his splint Both lower extremities have normal range of motion and no significant tenderness Right upper extremity is normal with full range of motion Neuro gait and balance are normal, interaction comprehension and expression are normal, motor is 5/5 x4 sensation intact and symmetrical Course Course Course Narrative: Soft tissue neck CT with contrast as well as bone windows to evaluate cervical spine showed mildly displaced fracture of lateral aspect of left C7 transverse process, as well as mildly displaced fractures of C5 and C7 posterior tubercles This was discussed with the attending physician Ivan who advised that the patient should follow with his doctor for referral to a resource specialist but that there was no acute treatment needed as patient is neurologically intact The mass on the side of his neck the CT with IV contrast said likely post traumatic enlargement of left scalene muscle with a likely intramuscular hematoma with surrounding edema This is not impairing breathing or swallowing and has been stable according to the patient for a number of days since the injury a week ago There is a comminuted intra-articular distal radial fracture with dorsal tilt of distal radial articular surface, this is now a week old so there was no attempt at reduction and patient is placed in his splint and will follow with orthopedics next week Patient is prescribed analgesics and was made aware of his diagnosis, the radiologist did call me to inform me of these findings and they were communicated to the patient who understood and will follow-up Patient ambulating easily without neurologic deficit with soft neck collar and wrist splint is discharged Incidental finding on his labs was a mild anemia, not related to his injury and he is advised to follow with primary doctor to repeat the test Medications Administered Discontinued Medications Generic Name Dose Route Start Last Admin Trade Name Saloni PRN Reason Stop Dose Admin Acetaminophen 975 mg 08/12/23 14:54 08/12/23 15:03 Acetaminophen 325 Mg Tablet PO 08/12/23 14:55 975 mg ONCE ONE Administration Iohexol 100 ml 08/12/23 13:59 08/12/23 13:59 Iohexol 350 Mg/Ml 100 Ml Infus..Btl IV 08/12/23 14:00 60 ml ONCE ONE Administration Medical Decision Making Lab Data [facility] Lab Attestation statement: I reviewed the patient's lab results. 08/12/23 12:58 08/12/23 12:58 Labs: Lab Results 08/12/23 Range/Units 12:58 WBC 6.1 (4.8-10.8) X10*3/uL RBC 4.20 L (4.60-5.80) X10*6/uL Hgb 13.3 L (14.0-18.0) g/dl Hct 38.6 L (42.0-52.0) % MCV 91.9 (80.0-98.0) fL MCH 31.7 (27.0-33.0) pg MCHC 34.5 (31.0-36.0) g/dl RDW 13.4 (11.0-16.0) % Plt Count 256 (160-400) X10*3/uL MPV 8.9 L (9.4-12.4) fL Immature Gran % (Auto) 0.3 (0.0-0.4) % Neut % (Auto) 78.5 H (45-73) % Lymph % (Auto) 10.0 L (20-40) % Platte % (Auto) 10.2 (2-11) % Eos % (Auto) 0.5 (0-4) % Baso % (Auto) 0.5 (0-2) % Lymph # (Auto) 0.6 L (1.2-4.9) X10*3/uL Platte # (Auto) 0.6 (0.1-1.2) X10*3/uL Eos # (Auto) 0.0 (0.0-0.4) X10*3/uL Baso # (Auto) 0.0 (0.0-0.2) X10*3/uL Abs Immat Gran (auto) 0.02 (0.00-0.03) X10*3/uL Absolute Neuts (auto) 4.8 (2.0-8.3) x10*3/uL Absolute Nucleated RBC 0.000 (0.0-0.012) X10*3/uL Nucleated RBC % (auto) 0.0 (0.0-0.2) /100WBC Sodium 132 L (135-145) mmol/L Potassium 4.6 (3.3-5.1) mmol/L Chloride 96 (96-108) mmol/L Carbon Dioxide 26 (22-29) mmol/L Anion Gap 15 (12-20) BUN 13 (9-16) mg/dL Creatinine 0.68 (0.5-1.4) mg/dL Estim Creat Clear Calc 88.8 Estimated GFR > 60 Random Glucose 104 (60-115) mg/dL Calcium 10.1 D (8.4-10.2) mg/dL Discharge Plan Discharge Clinical Impression: Fracture of left wrist, Fracture of spine, cervical, without spinal cord injury, closed Patient Disposition: Home, Self-Care Additional Instructions: CT scan of the cervical spine showed C7 and possibly C5 and C6 transverse facet fractures These are very unlikely to affect any major nerves or the spinal cord, follow with primary doctor who will refer you as needed to a specialist Should you develop weakness or loss of sensation in your arm return immediately to the emergency room The painful lump on the left side of her neck was seen on the soft tissue neck CT and was within the muscle and is very likely a hematoma which is a collection of blood which should resolve on its own If this expands or gets bigger return to the emergency room immediately especially if there is swelling in front of the neck or any difficulty breathing or swallowing But any expansion of the swelling should be evaluated here in the emergency room right away Your right wrist is broken/fractured and you should wear the splint and follow with the orthopedist for definitive treatment An incidental finding is you were mildly anemic and this should be checked by your doctor in 1-2 weeks for comparison, I gave you the lab results, and if it continues to show this mild anemia you you may need a colonoscopy or further evaluation Return any time any worse condition or concern Oxycodone narcotic pain killer should help with the pain in addition to Tylenol Oxycodone, narcotic, can cause constipation so you can take Dulcolax if you become constipated Prescriptions: New oxycodone 5 mg tablet 5 mg PO Q6H PRN (Reason: pain) Qty: 20 0RF Rx Instructions: Partial Fill upon patient request. acetaminophen 500 mg tablet 1,000 mg PO QID PRN (Reason: pain) Qty: 60 0RF cyclobenzaprine 5 mg tablet 5 mg PO TID PRN (Reason: muscle spasm) Qty: 14 0RF bisacodyl 5 mg tablet 5 mg PO BEDTIME PRN (Reason: constipation) Qty: 10 0RF No Action pregabalin 200 mg capsule 200 mg PO BID 30 Days Qty: 60 1RF amitriptyline 10 mg tablet 10 mg PO BEDTIME 90 Days Qty: 90 1RF cholecalciferol (vitamin D3) 50 mcg (2,000 unit) capsule 50 mcg PO DAILY multivitamin [Daily Multi-Vitamin] Tablet 1 tab PO DAILY testosterone 50 mg/5 gram (1 %) gel 50 mg transdermal DAILY vitamin B complex [B Complex-Vitamin B12] Tablet 1 tab PO DAILY finasteride 5 mg tablet 5 mg PO DAILY melatonin 5 mg capsule 8 mg PO .HS Interventions: ED Discharge Assessment Last Done: 08/12/23 16:49 Discharge Date/Time: 08/12/23 16:51 Print Language: Yakut
[2023-08-12 13:02] LABS: MANUAL DIFF FLAG NO
--- NOTE | 2023-08-12 13:15 | PC.NURSE ---
patient a&ox3, iv inserted, labs drawn, pt to go to ct scan
[2023-08-12 13:17] LABS: Basophils Percent Auto 0.5 % (0-2); Eosinophils Percent Auto 0.5 % (0-4); Hematocrit 38.6 % (42.0-52.0); Hemoglobin 13.3 g/dl (14.0-18.0); Imm Gran Abs Auto 0.02 X10*3/uL (0.00-0.03); Imm Gran Pct Auto 0.3 % (0.0-0.4); Lymphocytes Absolute Auto 0.6 X10*3/uL (1.2-4.9); Mean Corpuscular HGB Conc 34.5 g/dl (31.0-36.0); Mean Corpuscular Hemoglobin 31.7 pg (27.0-33.0); Mean Corpuscular Volume 91.9 fL (80.0-98.0); Mean Platelet Volume 8.9 fL (9.4-12.4); Monocytes Absolute Auto 0.6 X10*3/uL (0.1-1.2); Monocytes Percent Auto 10.2 % (2-11); Neutrophils Absolute Auto 4.8 x10*3/uL (2.0-8.3); Neutrophils Percent Auto 78.5 % (45-73); Platelet Count 256 X10*3/uL (160-400); Red Cell Distribution Width 13.4 % (11.0-16.0); White Blood Count 6.1 X10*3/uL (4.8-10.8)
[2023-08-12 13:34] LABS: Anion Gap 15 (12-20); Blood Urea Nitrogen 13 mg/dL (9-16); Calcium 10.1 mg/dL (8.4-10.2); Carbon Dioxide 26 mmol/L (22-29); Chloride 96 mmol/L (96-108); Creatinine Clr Calc Pharmacy 88.8; Estimated Glomerular Filt Rate > 60; Glucose Random 104 mg/dL (60-115); Potassium 4.6 mmol/L (3.3-5.1); Sodium 132 mmol/L (135-145)
[2023-08-12] MEDS: iohexoL 350 MG/ML 100 ML INFUS..BTL IV (13:59)
[2023-08-12] MEDS: Acetaminophen 325 MG TABLET 975 MG PO (15:03)
--- NOTE | 2023-08-12 15:04 | PC.NURSE ---
pt medicated for 9/10 neck pain
[2023-08-12 16:21] VITALS: BP 149/98; PULSE 88; RESP 20; TEMP 36.1; O2SAT 96
[2023-08-12 16:49] VITALS: BP 149/98; PULSE 88; RESP 20; TEMP 36.1; O2SAT 96
== END 2023-08-12 16:51 | disposition home or self-care (01) ==
PROVIDERS: Physician Assistant Medical; Emergency Provider Emergency Medicine; PCP Nurse Practitioner Family
DX: S52.572A Other intraarticular fracture of lower end of left radius, initial encounter for closed fracture (principal); S12.690A Other displaced fracture of seventh cervical vertebra, initial encounter for closed fracture; S12.491A Other nondisplaced fracture of fifth cervical vertebra, initial encounter for closed fracture; S12.590A Other displaced fracture of sixth cervical vertebra, initial encounter for closed fracture; W10.8XXA Fall (on) (from) other stairs and steps, initial encounter; R22.1 Localized swelling, mass and lump, neck; Y93.89 Activity, other specified; Y92.9 Unspecified place or not applicable; Y99.9 Unspecified external cause status
CPT/HCPCS: 36415; 70491; 72072; 73110; 73130; 80048; 85025; 99284; Q9967

== ENCOUNTER 2023-08-16 11:00 | Outpatient (AMB) | payer MEDICARE, SELFPAY ==
[2023-08-16 11:03] VITALS: BP 130/70; PULSE 65; TEMP 36.2; O2SAT 95; BMI 19.8
--- NOTE | 2023-08-16 11:03 | MHC.PC.OV ---
Vital Signs 08/16/23 11:03 Height 5 ft 9 in Weight 134 lb BMI 19.8 BP 130/70 Blood Pressure Location Lt brachial Position Sitting Pulse 65 Pulse Source Pulse Oximeter Temp 97.1 F Temp Source Temporal Artery Scan Pulse Oximetry (%) 95 Oxygen Delivery Method Room Air Intake Visit Reasons: ED f/u-needs ortho referral Intake Note: pt is here today for F/U need ortho referral Allergies No Known Allergies [No Known Allergies*] Allergy (Verified 08/16/23 12:05) Medication List - Last Reconciled 08/16/23 by GWENDOLYN Kang- acetaminophen 1,000 mg (2 x 500 mg) PO QID PRN amitriptyline 10 mg PO BEDTIME 90 days bisacodyl 5 mg PO BEDTIME PRN cholecalciferol (vitamin D3) 50 mcg PO DAILY cyclobenzaprine 5 mg PO TID PRN finasteride 5 mg PO DAILY melatonin 8 mg PO .HS multivitamin (Daily Multi-Vitamin tablet) 1 tab PO DAILY oxycodone 5 mg PO Q6H PRN pregabalin 200 mg PO BID 30 days testosterone 50 mg transdermal DAILY vitamin B complex (B Complex-Vitamin B12 tablet) 1 tab PO DAILY Tobacco use date assessed: 08/16/23 Fall risk assessment: 1 Fall in past year Last assessed Fall Risk: 08/16/23 Dental Screening Dental Screen Date: 08/16/23 Did you have a dental visit in the last 12 months?: Yes Did you have a dental problem in the last 6 months where you did not have access to dental care?: No Was dental information given to patient?: Patient has dentist HPI ED f/u-needs ortho referral HPI Details Pt was seen in the ER on 08/11 c/o neck pain, trapezius pain, upper back pain, and left hand and wrist pain. He fell 1 week prior down stairs. He was seen in urgent care and found to have a left C7 transverse process fracture as well as a left wrist fracture. Soft tissue neck CT with contrast as well as bone windows to evaluate cervical spine showed mildly displaced fracture of lateral aspect of left C7 transverse process, as well as mildly displaced fractures of C5 and C7 posterior tubercles. There was a mass on the side of pt's neck likely post traumatic enlargement of left scalene muscle with a likely intramuscular hematoma with surrounding edema. There was a comminuted intra-articular distal radial fracture with dorsal tilt of distal radial articular surface. It was recommended that he continue wearing a splint. Pt was sent oxycodone, acetaminophen, cyclobenzaprine, and bisacodyl for possible constipation. Will refer to ortho. Pt reports ongoing cervical neck pain, though manageable. He denies radiculopathy down his upper extremities. Will order XR and refer to spine center for further eval and treatment. Denies fever, chills, and dizziness. [facility] Medical History (Updated 08/16/23 @ 11:38 by [facility] BPH (benign prostatic hyperplasia) Aortic regurgitation Aortic stenosis Anterolisthesis of cervical spine COVID-19 vaccine series completed History of testicular cancer Personal history of nicotine dependence CRPS (complex regional pain syndrome), lower limb Neuritis of foot Left-sided low back pain with sciatica Anxiety disorder Back pain Surgical History History of esophagogastroduodenoscopy (EGD) (~2019) History of colonoscopy (~2019) History of orchiectomy Social History Housing: House Patient Tobacco Use Status: Current everyday Tobacco user Tobacco use type: Cigarette Cigarettes Per Day: 6 Years Smoked: 52 Packs per year/per ci.60 e-Cigarette/Vaping Use: Currently Using Second Hand Smoke Exposure: No service: No Current occupational status: retired and disabled Cognitive needs: No Hearing needs: No Vision needs: No Questionnaire PHQ-9 Over the last 2 weeks, how often have you been bothered by any of the following problems? [id number] - PHQ-9 Billing: Patient declined-do not bill Source: Developed by Drs. Sarwat Lim, Adelia Sandhu, Dionicio Sunshine and colleagues, with an educational delmar from [employer]. Thrive Questionnaire Date Thrive assessed: 04/04/23 MEERA-7 AMB Questionnaire MEERA-7 Date MEERA - 7 assessed: 04/04/23 Source: Developed by Drs. Sarwat Lim, Dionicio Marc and colleagues, with an educational delmar from [employer] MEERA-7 Assessment Billing MEERA-7 Assessment Tool: pt declined-do not bill Review of Systems Const Reports as per HPI Physical exam (Primary Care) Vital Signs: Last Vital Signs Temp 97.1 F 08/16/23 11:03 Pulse 65 08/16/23 11:03 BP 130/70 08/16/23 11:03 Pulse Ox 65 L 08/16/23 11:03 Oxygen Delivery Method Room Air 08/16/23 11:03 BMI result Body Mass Index 19.8 Tobacco/Smoking Status: Tobacco use Status Tobacco use date assessed 08/16/23 08/16/23 11:07 Patient Tobacco Use Status Current everyday Tobacco 08/16/23 11:07 Tobacco use type Cigarette 08/16/23 11:07 e-Cigarette/Vaping Use Currently Using 08/16/23 11:07 Thrive Assessment: Date of Thrive Assessment Date Thrive assessed 04/04/23 08/16/23 11:07 Const General: cooperative Orientation/consciousness: patient oriented x3 Neck Other: left neck with scattered ecchymosis with protrusion (hematoma), no tenderess with palpation. turning head side to side,chin tucks, chin raises, minimal discomfort noted to posterior cervical neck (mid). Neg spurlings, neg radiculopathy Resp Effort & Inspection: normal respiratory effort Auscultation: clear to auscultation bilaterally Cardio Rate: regular rate Rhythm: regular rhythm Heart sounds: S1 normal heart sound present, S2 normal heart sound present and Murmur heart sound present systolic Skin Other: fading ecchymosis from left collar bone running inferior to pectoral region Neuro General: patient oriented x3 Extrem Other: slight weakness with left hand grasp, + radial pulse, normal color, cap refill 2 seconds, wearing partial splint from left forearm to wrist (fiberglass/alex wrap) Psych Appearance: grossly normal Mental Status: mental status grossly normal Speech and movement: Normal speech and movement present Affect: normal affect Attitude: cooperative Thought process: Normal thought process present Thought content: Normal thought content present Insight: Good insight present (Psych) Judgement: Good judgement present (Psych) Assessment and Plan Assessment & Plan (1) Fracture of left wrist: Code(s): S62.102A - Fracture of unspecified carpal bone, left wrist, initial encounter for closed fracture Plan: Referred to ortho (2) Fall: Code(s): W19.XXXA - Unspecified fall, initial encounter Plan: Cervical XR ordered, referred to spine center (3) Cervical pain (neck): Code(s): M54.2 - Cervicalgia Plan: referral to Spine Team. Hematoma noted, fading ecchymosis, Plan The patient agreed to the use of a rn medical inpatient services for this encounter. Scribed for GWENDOLYN Shepherd-BC by Audelia Brown rn medical inpatient services, on 08/16/2023 at 11:25 EST. Orders: Orders XR cervical spine 2V Today W19.XXXA - Unspecified fall, initial encounter CA echo transthoracic complete 8 Months I35.0 - Nonrheumatic aortic (valve) stenosis Referrals Orthopedics Referral S62.102A - Fracture of unspecified carpal bone, left wrist, initial encounter for closed fracture Neuro Spine Referral M54.2 - Cervicalgia, W19.XXXA - Unspecified fall, initial encounter Coding Level of Care Code Est Pt Level 4 (57865) Diagnoses Fracture of left wrist S62.102A Fall W19.XXXA Cervical pain (neck) M54.2
== END 2023-08-16 12:48 | disposition home or self-care (01) ==
PROVIDERS: PCP Nurse Practitioner Family; Visit Provider Nurse Practitioner Family
DX: S62.102A Fracture of unspecified carpal bone, left wrist, initial encounter for closed fracture (principal); W19.XXXA Unspecified fall, initial encounter; M54.2 Cervicalgia
CPT/HCPCS: 99214

== ENCOUNTER 2023-08-22 09:02 | Outpatient (REF) | payer MEDICARE, SELFPAY ==
--- NOTE | ~2023-08-22 | XR_ITS ---
EXAMINATION: XR WRIST, LEFT CLINICAL INFORMATION: Pain in left wrist, left wrist fracture. COMPARISON: August 12, 2023. TECHNIQUE: PA, lateral, and oblique views of the left wrist. FINDINGS: There is a comminuted intra-articular fracture of the distal radius with slight dorsal tilt of the distal radioarticular surface and mild impaction. Bones are osteopenic. There is mild bridging callus formation. XR/XR wrist LT min 3V IMPRESSION: Comminuted intra-articular fracture of the distal radius with slight dorsal tilt of the distal radioarticular surface and mild impaction.
== END 2023-08-22 09:03 | disposition home or self-care (01) ==
LOC: HO.HOSX 09:02
DX: S52.502A Unspecified fracture of the lower end of left radius, initial encounter for closed fracture (principal); S12.9XXA Fracture of neck, unspecified, initial encounter; R20.0 Anesthesia of skin
CPT/HCPCS: 25600; 73110; 99202

== ENCOUNTER 2023-08-22 11:01 | Outpatient (AMB) | payer MEDICARE, SELFPAY ==
--- NOTE | 2023-08-22 11:01 | MHC.OFFVIS ---
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 Pt states he fell down the stairs about 2 weeks ago. Pt was in a splint for the last 2 weeks. He states the pain and swelling has improved in the past 2 weeks. Pt states he has numbness in his thumb and index finger. 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 He also fractured his left C-spine during this fall. He was seen in the ED on 08/12/23 and given a course of Oxycodone for his pain. He complains of pain and new numbness in his thumb & index fingers, he says this began after his swelling resolved in his right wrist. He denied any numbness when seen in the ED on 08/12/23. He says he also has new numbness in his right hand as well, which began in the last few weeks. He has an appointment to be seen for his C-spine fractures later today. [facility] Medical History BPH (benign prostatic hyperplasia) Aortic regurgitation Aortic stenosis Anterolisthesis of cervical spine COVID-19 vaccine series completed History of testicular cancer Personal history of nicotine dependence CRPS (complex regional pain syndrome), lower limb Neuritis of foot Left-sided low back pain with sciatica Anxiety disorder Back pain Surgical History History of esophagogastroduodenoscopy (EGD) (~2019) History of colonoscopy (~2019) History of orchiectomy Social History Housing: House Patient Tobacco Use Status: Current everyday Tobacco user Tobacco use type: Cigarette Cigarettes Per Day: 6 Years Smoked: 52 e-Cigarette/Vaping Use: Currently Using Second Hand Smoke Exposure: No service: No Current occupational status: retired and disabled Cognitive needs: No Hearing needs: No Vision needs: No Review of Systems Const All systems reviewed & are unremarkable except as noted in HPI and below Physical Exam Const General: cooperative, healthy appearing and no acute distress Orientation/consciousness: patient oriented x3 HEENT Head: Yes normocephalic and Yes atraumatic Eyes EOM: EOMs intact bilaterally Resp Effort & Inspection: normal respiratory effort and able to speak in complete sentences Cardio Jugular venous distension: no JVD Skin General skin exam: turgor normal Rashes: no rashes Neuro General: patient oriented x3 Extrem Other: Evaluation of Upper Extremity: The patient is alert, oriented, and in no acute distress The patient can make a fist and extend all of his digits. No locking or catching. He does have some mild resolving swelling and ecchymosis about the left wrist . Only mild tenderness to palpation over the distal radius fracture. DRUJ stable. He does have some decreased subjective sensation in the left thumb and index finger. When he was seen in the emergency department it does not appear that he had trouble with numbness and tingling in his fingers. He is also reporting numbness and tingling in the right thumb and index finger. Radiographs: 3 views of the left wrist from 08/12/23 were reviewed by me today in clinic. They show a distal radius fracture with intra-articular extension at the lunate facet. He has some dorsal comminution and was at neutral on the lateral view 3 views of the left wrist were taken and viewed by me today in clinic. He now has ~5 degrees of dorsal tilt on the lateral view. Overall alignment satisfactory & some evidence of interval bony healing Psych Appearance: grossly normal Affect: normal affect Attitude: cooperative Office Procedures Fracture Care Details: Fracture care left distal radius fracture [id number] Fracture Billing Code: Fracture Billing Code Assessment & Plan Assessment & Plan (1) Distal radius fracture, left: Code(s): S52.502A - Unspecified fracture of the lower end of left radius, initial encounter for closed fracture Category: Medical (2) Cervical spine fracture: Code(s): S12.9XXA - Fracture of neck, unspecified, initial encounter Category: Medical (3) Bilateral hand numbness: Code(s): R20.0 - Anesthesia of skin Category: Medical Plan Assessment & Plan: 1. Left distal radius fracture, S/P fall DOI: ~08/05/23 I educated him about this condition I discussed operative and non-operative treatment options I think we can manage this non-operatively He will discontinue his wrist splint at this time, and he was placed in a short arm finger spica cast to be worn for the next 2 weeks I discussed activity modifications, he is to lift nothing heavier than a cellphone for the next 2 weeks He will perform gentle finger ROM exercises at home He will follow up in 2 weeks with X-rays, 3V L wrist OOP 2. Bilateral hand numbness Began after his fall on ~08/05/23 Median nerve distribution bilaterally C-spine fractures after this fall He is scheduled to be seen by a community support specialist for his C-spine fractures. I am going to order an EMG nerve conduction study. I recommended that he tell the spine surgeon about the numbness in his hands when he sees him later today. We will follow-up on the nerve conduction study when he is seen in 2 weeks. Scribed for Dianne Quiroga MD by Don Skaggs, medical program specialist, on 08/22/23 at 11:35 AM, EST. Orders: Orders XR wrist LT min 3V Today M25.532 - Pain in left wrist Coding Level of Care Code New Pt Level 3 (86273) Diagnoses Distal radius fracture, left S52.502A Cervical spine fracture S12.9XXA Bilateral hand numbness R20.0 CPT Codes Fracture Care - Fracture Billing Code: Fracture Billing Code ([id number])
== END 2023-08-22 12:08 | disposition home or self-care (01) ==
PROVIDERS: PCP Nurse Practitioner Family; Visit Provider Orthopaedic Surgery
DX: S52.502A Unspecified fracture of the lower end of left radius, initial encounter for closed fracture (principal); R20.0 Anesthesia of skin
CPT/HCPCS: 25600; 99203

== ENCOUNTER 2023-08-22 12:54 | Outpatient (AMB) | payer MEDICARE, SELFPAY ==
--- NOTE | 2023-08-22 12:58 | HO.SPINEOV ---
Intake Visit Reasons: Cervicalgia Intake Note: Mr. Sr is here today c/o neck pain. 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 See 8-year-old male who comes in today with a chief complaint of a cervical neck fracture. He reports that on 08/05 he was attempting to move something heavy in his home down a set of stairs after drinking 2-3 beers and subsequently fell down the stairs injuring his left wrist and neck. He has been casted on his left forearm for a wrist fracture, and comes in today to be evaluated for his cervical neck fractures which were identified on cervical CT scan. He reports no significant shooting radicular pains from his neck down his arms, but does state that he has new onset bilateral thumb numbness since the incident, and a feeling of reduced sensation in his bilateral index fingers. In addition to this over the course of the last few days he has developed a gnawing/nagging pain in his right triceps. He states he is tried utilizing cyclobenzaprine, oxycodone, and Tylenol to help alleviate his symptoms without significant relief. He wears a cervical soft collar into the office today. 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 BPH, depression. Social hx: The patient smokes 6 cigarettes per day and drinks roughly 2-3 beers daily. Medications: Amitriptyline, bisacodyl, finasteride, melatonin, Lyrica, testosterone gel, vitamin-B. Allergies: NKDA. Physical exam: (This exam exclude his right upper extremity as it is currently casted) The patient has 5/5 strength in his upper and lower extremities. He reports some sensational deficits in his bilateral index fingers and thumbs but is able to articulate them well still. No other sensational deficits. His reflexes are 2+ intact diffusely. He is able to ambulate well and rises from a seated position without difficulty. (-) Aden's, (-) clonus, (-) Lhermitte's. Imaging review: CT scan of the cervical spine completed here at [facility] shows diffuse spondylosis of the cervical spine with severe loss of disc height from C3 to C7. Notable anterior osteophyte growth at C6 and C7, with some evidence of posterior veterbral body auto fusion from C4-7. There is a slightly displaced C7 left-sided transverse process fracture. The patient's cervical bone degeneration makes accurate analysis of the posterior tubercle fractures reported at C5 & C6 very difficult. If there are in fact small fractures there they are stable. Impression: Tae is a pleasant 68-year-old male who comes in today for evaluation of traumatic cervical neck fracture status post an intoxicated fall down 1 flight of stairs on 08/05. He reports no neck pain. He reports he does not like wearing the cervical soft collar and it does not provide him comfort or support. He reports no shooting radicular pains. Unfortunately, he does report some new onset sensational changes and some new onset pain in his right triceps. Because of the traumatic nature of the incident accompanied by the patient's potentially poor ability to provide an accurate history due to intoxication, I would like to send the patient for a cervical MRI to rule out nerve root impingement which may be responsible for his new onset neurological symptoms/pain. I will either discuss his MRI results over the phone or see him back in office. Thank you for allowing us to care for your patient. The total time spent with this visit with this patient was 45 minutes reviewing history, physical exam, CT / X-ray imaging review, and implementation of treatment plan or further diagnostic testing Sam Gomez MD,PhD [facility] Coding Level of Care Code Global (54951) Diagnoses Cervical spine fracture S12.9XXA
== END 2023-08-22 13:31 | disposition home or self-care (01) ==
PROVIDERS: PCP Nurse Practitioner Family; Referring Provider Nurse Practitioner Family; Visit Provider Physician Assistant
DX: S12.9XXA Fracture of neck, unspecified, initial encounter (principal)
CPT/HCPCS: 99204

== ENCOUNTER 2023-08-30 14:03 | Outpatient (REF) | payer MEDICARE, SELFPAY ==
--- NOTE | 2023-08-30 14:06 | EMG_ITS ---
Chief complaint: Recent fall down stairs sustaining cervical spine fracture and left wrist fracture. Currently on a left wrist cast and soft neck collar. Bilateral hand numbness. Arm pain. Reason for referral: Evaluate for entrapment neuropathy versus radiculopathy Referred by: Dr. Quiroga/River [facility] Procedure done: Right upper extremity Precautions and/or limitations: Bilateral ordered but patient is on a cast on the left The limb temperature was monitored continuously and remained between 32-36 degrees C during the performance of the NCS. Nerve Conduction Studies Anti Sensory Summary Table ?Stim Site NR Onset (ms) Norm Onset (ms) Peak (ms) Norm Peak (ms) O-P Amp (?V) Norm O-P Amp Site1 Site2 Delta-0 (ms) Dist (cm) Greg (m/s) Norm Greg (m/s) Right Median Anti Sensory (2nd Digit) Wrist ? 3.2 4.4 <3.6 14.5 >10 Wrist 2nd Digit 3.2 14.0 44 Right Radial Anti Sensory (Thumb) Forearm ? 1.6 2.3 <3.1 10.2 Forearm Thumb 1.6 0.0 Right Ulnar Anti Sensory (5th Digit) Wrist ? 0.9 3.3 <3.7 23.4 >15.0 Wrist 5th Digit 0.9 14.0 156 Motor Summary Table ?Stim Site NR Onset (ms) Norm Onset (ms) O-P Amp (mV) Norm O-P Amp iAmp (mV) Amp (1st) (%) Site1 Site2 Delta-0 (ms) Dist (cm) Greg (m/s) Norm Greg (m/s) Right Median Motor (Abd Poll Brev) Wrist ? 4.2 <3.9 7.0 >4.5 9.2 100.0 Elbow Wrist 4.6 25.0 54 >45 Elbow ? 8.8 6.9 8.9 98.6 Right Ulnar Motor (Abd Dig Minimi) Wrist ? 3.0 <3.0 9.1 >5 9.8 100.0 B Elbow Wrist 4.4 22.0 50 >45 B Elbow ? 7.4 8.6 9.4 94.5 A Elbow B Elbow 1.6 10.0 63 >45 A Elbow ? 9.0 7.2 8.8 79.1 EMG ?Side Muscle Nerve Root Ins Act Fibs Psw Amp Dur Poly Recrt Int Pat Comment Right 1stDorInt Ulnar C8-T1 Nml Nml Nml Nml Nml 0 Nml Complete Right FlexCarRad Median C6-7 Nml Nml Nml Nml Nml 0 Nml Complete Right Biceps Musculocut C5-6 Nml Nml Nml Nml Nml 0 Nml Complete Right Triceps Radial C6-7-8 Nml Nml Nml Nml Nml 0 Nml Complete Right Deltoid Axillary C5-6 Nml Nml Nml Nml Nml 0 Nml Complete Paraspinal EMG ?Side Muscle Nerve Root Ins Act Fibs Psw Comment Right Cervical Upper Rami Nml Nml Nml Right Cervical Mid Rami Nml Nml Nml Right Cervical Lower Rami Nml Nml Nml FINDINGS: Right median motor nerve showed prolonged distal latency, normal amplitude and normal conduction velocity. Right median sensory nerve showed prolonged peak latency. All other nerves tested were within normal. Concentric needle EMG was performed in selected muscles of the right upper extremity and cervical paraspinals. Study did not reveal signs of electric abnormalities as shown in the table above. IMPRESSION: 1. This is an abnormal study. 2. There is electrodiagnostic evidence for right moderate-severe median neuropathy at the wrist, consistent with carpal tunnel syndrome. 3. There is no electrodiagnostic evidence for ulnar neuropathy, brachial plexopathy, or cervical radiculopathy. CLINICAL COMMENT: Once cast on the left is removed, please reorder and reschedule left upper extremity NCS/EMG. Thank you for your kind referral. Leslie Bermeo MD, ELENI Board Certified, [place] Board [employer] and Rehabilitation (ABPMR) Board Certified, [place] Board [employer] Electrodiagnostic [employer] (ABEM) [place] [id number] [facility]
== END 2023-08-30 14:04 | disposition home or self-care (01) ==
LOC: HO.NEURO 14:03
PROVIDERS: PCP Nurse Practitioner Family
DX: R20.0 Anesthesia of skin (principal); R20.2 Paresthesia of skin
CPT/HCPCS: 95886; 95909

== ENCOUNTER → 2023-08-30 14:06 | Outpatient (BNV) | payer MEDICARE, SELFPAY | PROVIDERS: PCP Nurse Practitioner Family; Visit Provider Physical Medicine & Rehabilitation | DX: G56.01 Carpal tunnel syndrome, right upper limb (principal) | CPT/HCPCS: 95886; 95909 ==

== ENCOUNTER 2023-09-05 12:03 | Outpatient (REF) | payer MEDICARE, SELFPAY ==
--- NOTE | ~2023-09-05 | XR_ITS ---
EXAMINATION: XR WRIST, LEFT CLINICAL INFORMATION: Pain COMPARISON: X-ray 08/22/2023 TECHNIQUE: PA, lateral, and oblique views of the left wrist. FINDINGS: Stable position and alignment of the comminuted intra-articular fracture of the distal radius. Similar slight dorsal tilt of the distal radial articular surface and mild impaction. Slight increase in callus formation. No new acute fractures seen. Bones are osteopenic. Soft tissue swelling present. XR/XR wrist LT min 3V IMPRESSION: Comminuted intra-articular distal radial fracture, stable position and alignment. Callus formation seen...
== END 2023-09-05 12:04 | disposition home or self-care (01) ==
LOC: HO.HOSX 12:03
PROVIDERS: Visit Provider Orthopaedic Surgery
DX: S52.502D Unspecified fracture of the lower end of left radius, subsequent encounter for closed fracture with routine healing (principal); S12.9XXD Fracture of neck, unspecified, subsequent encounter; G56.01 Carpal tunnel syndrome, right upper limb; R20.0 Anesthesia of skin; R20.2 Paresthesia of skin
CPT/HCPCS: 73110; 99212

== ENCOUNTER 2023-09-05 14:14 | Outpatient (AMB) | payer MEDICARE, SELFPAY ==
--- NOTE | 2023-09-05 14:18 | A.OFFVIS_ITS ---
Intake Visit Reasons: OV-LT wrist fx- 2 wk follow up Intake Note: Huber is a 68 year old right hand dominant male who presents today for a follow up of his left distal radial fracture. Cast off and xrays updated. Patient reports soreness with cast removal. He continues to have numbness at the tip of his thumb. States EMG was obtained for his RUE, due to his left arm being in a cast. Allergies No Known Allergies [No Known Allergies*] Allergy (Verified 09/05/23 14:43) HPI HPI OV-LT wrist fx- 2 wk follow up: Details: Huber is a 68 year old right hand dominant man who returns to follow up for his left distal radius fracture & hand numbness, S/P fall down stairs, DOI: ~08/05/23. He also fractured his left C-spine during this fall and is scheduled to follow- up with our neurosurgeons with a C-spine MRI. He continues to have left hand numbness, primarily to the tip of his left thumb. He did not have a NCS done on his left side due to being in a cast. He also continues to have numbness and tingling in his right thumb and index finger, also since his fall. He continues to have numbness in the right hand as well, which he says began in the last few weeks after his fall. He says his primary complaint of numbness is in his right hand. He is a smoker and says he smokes 3-4 cigarettes daily on average. He complains of ongoing shoulder pain since his fall. [facility] Medical History BPH (benign prostatic hyperplasia) Aortic regurgitation Aortic stenosis Anterolisthesis of cervical spine COVID-19 vaccine series completed History of testicular cancer Personal history of nicotine dependence CRPS (complex regional pain syndrome), lower limb Neuritis of foot Left-sided low back pain with sciatica Anxiety disorder Back pain Surgical History History of esophagogastroduodenoscopy (EGD) (~2019) History of colonoscopy (~2019) History of orchiectomy Social History Housing: House Patient Tobacco Use Status: Current everyday Tobacco user Tobacco use type: Cigarette Cigarettes Per Day: 6 Years Smoked: 52 e-Cigarette/Vaping Use: Currently Using Second Hand Smoke Exposure: No service: No Current occupational status: retired and disabled Cognitive needs: No Hearing needs: No Vision needs: No Review of Systems Const All systems reviewed & are unremarkable except as noted in HPI and below Physical Exam Const General: no acute distress and alert Orientation/consciousness: patient oriented x3 Neuro General: patient oriented x3 Extrem Other: Evaluation of Left Upper Extremity: The patient is alert, oriented, and in no acute distress He complains of persistent numbness to the tips of the index finger and thumb bilaterally right worse than left. ROM: He can make a fist and extend all his digits Wrist ROM: Symmetrical pronosupination ~30 extension ~40 flexion Fracture site non-tender DRUJ stable on exam Radiographs: 3 views of the left wrist were taken and viewed by me today in clinic. hey show a distal radius fracture with intra-articular extension at the lunate facet with ~3 degrees of dorsal tilt on the lateral view, with retained good radial height & good inclination. Overall alignment satisfactory & good evidence of interval bony healing Nerve Conduction Study: Right-side only IMPRESSION: 1. This is an abnormal study. 2. There is electrodiagnostic evidence for right moderate-severe median neuropathy at the wrist, consistent with carpal tunnel syndrome. 3. There is no electrodiagnostic evidence for ulnar neuropathy, brachial plexopathy, or cervical radiculopathy. CLINICAL COMMENT: Once cast on the left is removed, please reorder and reschedule left upper extremity NCS/EMG. Leslie Bermeo MD, ELENI 08/30/23 Psych Appearance: grossly normal Affect: normal affect Attitude: cooperative Assessment & Plan Assessment & Plan (1) Distal radius fracture, left: Code(s): S52.502A - Unspecified fracture of the lower end of left radius, initial encounter for closed fracture Category: Medical (2) Cervical spine fracture: Code(s): S12.9XXA - Fracture of neck, unspecified, initial encounter Category: Medical (3) Carpal tunnel syndrome of right wrist: Code(s): G56.01 - Carpal tunnel syndrome, right upper limb Category: Medical (4) Numbness and tingling in left hand: Code(s): R20.0 - Anesthesia of skin; R20.2 - Paresthesia of skin Category: Medical Plan Assessment & Plan: 1. Left distal radius fracture, S/P fall DOI: ~08/05/23 I educated him about this condition His distal radius fracture appears to be healing well. We discontinued his cast today. He was fitted for a velcro wrist splint, to be worn when out of the house for the next 2 weeks. He will remove this when at home I discussed activity modifications, he is to use his wrist for lightweight activities He will perform finger & wrist ROM exercises at home He knows if he is having trouble with stiffness to give us a call and we can refer him for OT hand therapy. He would like to try [id number] exercises at home 1st. 2. Right carpal tunnel syndrome, moderate-severe With dense numbness to the thumb I educated him about this condition I discussed operative and non-operative treatment options The patient would like to proceed with surgery The risks and benefits of operative treatment were discussed with the patient and the patient wishes to proceed with surgery. These risks include, but are not limited to risk of damage to blood vessels, nerves, tendons, infection, recurrence, incomplete relief of preoperative symptoms, persistent pain, possible need for further surgery and the risks associated with regional blocks and anesthesia. The plan is to take the patient to the operating room sometime in the next few weeks for the following procedures: 1. Right carpal tunnel release, under local All of the preoperative paperwork including the consent was reviewed today. All the patient's questions were answered. The patient understands that they will be contacted by our dye tank tender s oon to schedule this procedure He denies Diabetes, blood thinners, asthma, heart, lung, kidney issues 3. Left hand numbness Began after his fall on ~08/05/23 Median nerve distribution bilaterally C-spine fractures after this fall I ordered a NCS to assess his left side He will follow up when completed for review Scribed for Dianne Quiroga MD by Don Skaggs, medical billing specialist, on 09/05/23 at 3:00 PM, EST. Orders: Orders XR wrist LT min 3V Today Dianne Quiroga MD M25.532 - Pain in left wrist NE nerve conduction velocity Today ADALBERTO Guzmán R20.0 - Anesthesia of skin, R20.2 - Paresthesia of skin NE electromyogram (EMG) Today ADALBERTO Guzmán R20.0 - Anesthesia of skin, R20.2 - Paresthesia of skin Scribe Plan - Not visible on output: Scribed for Dianne Quiroga MD by Don Skaggs, medical billing specialist, on [ ] at [ ], EST. Coding Level of Care Code Est Pt Level 4 (57666) Diagnoses Distal radius fracture, left S52.502A Cervical spine fracture S12.9XXA Carpal tunnel syndrome of right wrist G56.01 Numbness and tingling in left hand R20.0; R20.2
== END 2023-09-05 15:37 | disposition home or self-care (01) ==
PROVIDERS: PCP Nurse Practitioner Family; Visit Provider Orthopaedic Surgery
DX: S52.502A Unspecified fracture of the lower end of left radius, initial encounter for closed fracture (principal); G56.01 Carpal tunnel syndrome, right upper limb; R20.0 Anesthesia of skin; R20.2 Paresthesia of skin
CPT/HCPCS: 99214

== ENCOUNTER 2023-09-07 10:14 | Outpatient (REF) | payer MEDICARE, SELFPAY ==
[2023-09-07 13:29] LABS: Appearance Urine Clear; Color Urine Yellow; Glucose Urine UA Negative (Negative); Leukocyte Esterase Urine Negative (Negative); Nitrite Urine Negative (Negative); Specific Gravity - Urine 1.015 (1.005-1.025); Urine Blood Negative (Negative); Urine Ketones Negative (Negative); Urine Protein Negative (Neg-Trace)
[2023-09-07 14:13] LABS: MANUAL DIFF FLAG NO
[2023-09-07 14:19] LABS: Basophils Percent Auto 1.1 % (0-2); Eosinophils Absolute Auto 0.3 X10*3/uL (0.0-0.4); Hematocrit 41.7 % (42.0-52.0); Hemoglobin 13.9 g/dl (14.0-18.0); Imm Gran Abs Auto 0.02 X10*3/uL (0.00-0.03); Imm Gran Pct Auto 0.5 % (0.0-0.4); Lymphocytes Absolute Auto 0.8 X10*3/uL (1.2-4.9); Lymphocytes Percent Auto 20.2 % (20-40); Mean Corpuscular HGB Conc 33.3 g/dl (31.0-36.0); Mean Corpuscular Hemoglobin 31.7 pg (27.0-33.0); Mean Platelet Volume 10.1 fL (9.4-12.4); Monocytes Absolute Auto 0.4 X10*3/uL (0.1-1.2); Monocytes Percent Auto 11.7 % (2-11); Neutrophils Absolute Auto 2.2 x10*3/uL (2.0-8.3); Neutrophils Percent Auto 57.5 % (45-73); Platelet Count 256 X10*3/uL (160-400); Red Blood Count 4.39 X10*6/uL (4.60-5.80); White Blood Count 3.8 X10*3/uL (4.8-10.8)
[2023-09-07 14:39] LABS: Alanine Aminotransferase 20 U/L (0-40); Alkaline Phosphatase 93 U/L (39-117); Anion Gap 12 (12-20); Aspartate Amino Transferase 27 U/L (5-37); Bilirubin Total 0.4 mg/dL (0.0-1.0); Blood Urea Nitrogen 12 mg/dL (9-16); Carbon Dioxide 28 mmol/L (22-29); Chloride 99 mmol/L (96-108); Cholesterol 197 mg/dL (<200); Estimated Glomerular Filt Rate > 60; Glucose Fasting 107 mg/dL (60-99); HDL Cholesterol 79 mg/dL (>40); LDL Cholesterol Calculated 111 mg/dL (<100); Potassium 5.1 mmol/L (3.3-5.1); Sodium 134 mmol/L (135-145); Triglycerides 39 mg/dL (<150)
[2023-09-07 14:53] LABS: Prostate Specific Antigen Scr 0.18 ng/mL (<0.05-4.0)
[2023-09-07 14:55] LABS: TSH reflex Free T4 1.18 uIU/mL (0.32-4.0)
== END 2023-09-07 10:15 | disposition home or self-care (01) ==
LOC: HO.HMGCLDS 10:14
PROVIDERS: PCP Nurse Practitioner Family; Visit Provider Nurse Practitioner Family
DX: Z00.00 Encounter for general adult medical examination without abnormal findings (principal); D72.819 Decreased white blood cell count, unspecified; G90.529 Complex regional pain syndrome I of unspecified lower limb; Z87.891 Personal history of nicotine dependence; Z12.5 Encounter for screening for malignant neoplasm of prostate
CPT/HCPCS: 36415; 80053; 80061; 81003; 84153; 84443; 85025

== ENCOUNTER 2023-09-19 16:20 | Outpatient (REF) | payer MEDICARE, SELFPAY | END 2023-09-19 16:21 | disposition home or self-care (01) | LOC: HO.MRI 16:20 | PROVIDERS: PCP Nurse Practitioner Family; Visit Provider Physician Assistant | DX: Z13.89 Encounter for screening for other disorder (principal) ==

== ENCOUNTER 2023-09-27 14:50 | Outpatient (REF) | payer MEDICARE, SELFPAY ==
--- NOTE | 2023-09-27 14:53 | EMG_ITS ---
Chief complaint: Recent left distal radial fracture, healed, cast off Having numbness on left 1st and 2nd digits. Reason for referral: Evaluate for Carpal Tunnel Syndrome Referred by: River GLOVER Procedure done: Left upper extremity NCS/EMG Precautions and/or limitations: None The limb temperature was monitored continuously and remained between 32-36 degrees C during the performance of the NCS. Nerve Conduction Studies Anti Sensory Summary Table ?Stim Site NR Onset (ms) Norm Onset (ms) Peak (ms) Norm Peak (ms) O-P Amp (?V) Norm O-P Amp Site1 Site2 Delta-0 (ms) Dist (cm) Greg (m/s) Norm Greg (m/s) Left Median Anti Sensory (2nd Digit) Wrist ? 3.4 3.9 <3.6 6.8 >10 Wrist 2nd Digit 3.4 14.0 41 Left Radial Anti Sensory (Thumb) Forearm ? 0.9 2.2 <3.1 15.7 Forearm Thumb 0.9 0.0 Left Ulnar Anti Sensory (5th Digit) Wrist ? 2.6 3.3 <3.7 15.5 >15.0 Wrist 5th Digit 2.6 14.0 54 Motor Summary Table ?Stim Site NR Onset (ms) Norm Onset (ms) O-P Amp (mV) Norm O-P Amp iAmp (mV) Amp (1st) (%) Site1 Site2 Delta-0 (ms) Dist (cm) Greg (m/s) Norm Greg (m/s) Left Median Motor (Abd Poll Brev) Wrist ? 4.5 <3.9 4.5 >4.5 5.9 100.0 Elbow Wrist 4.6 23.0 50 >45 Elbow ? 9.1 4.6 6.0 102.2 Left Ulnar Motor (Abd Dig Minimi) Wrist ? 2.7 <3.0 5.8 >5 7.2 100.0 B Elbow Wrist 3.9 21.5 55 >45 B Elbow ? 6.6 6.0 7.2 103.4 A Elbow B Elbow 2.0 10.0 50 >45 A Elbow ? 8.6 5.3 6.3 91.4 EMG ?Side Muscle Nerve Root Ins Act Fibs Psw Amp Dur Poly Recrt Int Pat Comment Left 1stDorInt Ulnar C8-T1 Nml Nml Nml Nml Nml 0 Nml Complete Left FlexCarRad Median C6-7 Nml Nml Nml Nml Nml 0 Nml Complete Left Biceps Musculocut C5-6 Nml Nml Nml Nml Nml 0 Nml Complete Left Triceps Radial C6-7-8 Nml Nml Nml Nml Nml 0 Nml Complete Left Deltoid Axillary C5-6 Nml Nml Nml Nml Nml 0 Nml Complete FINDINGS: Left median motor nerve showed prolonged distal latency, normal amplitude and normal conduction velocity. Left median sensory nerve showed prolonged peak latency. All other nerves tested were within normal. Concentric needle EMG was performed in selected muscles of the left upper extremity. Study did not reveal signs of electric abnormalities as shown in the table above. IMPRESSION: 1. This is an abnormal study. 2. There is electrodiagnostic evidence for left moderate-severe median neuropathy at the wrist, consistent with carpal tunnel syndrome. 3. There is no electrodiagnostic evidence for ulnar neuropathy, brachial plexopathy, or cervical radiculopathy. CLINICAL COMMENT: Overall similar findings to right side. Thank you for your kind referral. Leslie Bermeo MD, ELENI Board Certified, [place] Board of [employer] Medicine and Rehabilitation (ABPMR) Board Certified, [place] Board of Electrodiagnostic Medicine (ABEM) CODIN [id number] MTDD
== END 2023-09-27 14:51 | disposition home or self-care (01) ==
LOC: HO.NEURO 14:50
PROVIDERS: PCP Nurse Practitioner Family
DX: R20.0 Anesthesia of skin (principal); R20.2 Paresthesia of skin
CPT/HCPCS: 95886; 95909

== ENCOUNTER → 2023-09-27 14:53 | Outpatient (BNV) | payer MEDICARE, SELFPAY | PROVIDERS: PCP Nurse Practitioner Family; Visit Provider Physical Medicine & Rehabilitation | DX: G56.02 Carpal tunnel syndrome, left upper limb (principal) | CPT/HCPCS: 95886; 95909 ==

== ENCOUNTER 2023-10-04 10:19 | Outpatient (AMB) | payer MEDICARE, SELFPAY ==
--- NOTE | 2023-10-04 10:27 | MHC.PC.OV ---
Vital Signs 10/04/23 10:31 Height 5 ft 9 in Weight 134 lb BMI 19.8 BP 136/80 Blood Pressure Location Rt brachial Position Sitting Pulse 66 Pulse Source Pulse Oximeter Pulse Oximetry (%) 98 Oxygen Delivery Method Room Air Intake Visit Reasons: 6 month follow up Intake Note: Patient here to follow up on lab work and compare labs from hospital. Allergies No Known Allergies [No Known Allergies*] Allergy (Verified 10/04/23 10:33) Medication List - Last Reconciled 10/04/23 by LOUISE Kang amitriptyline 10 mg PO BEDTIME 90 days bisacodyl 5 mg PO BEDTIME PRN cholecalciferol (vitamin D3) 50 mcg PO DAILY finasteride 5 mg PO DAILY melatonin 8 mg PO .HS multivitamin (Daily Multi-Vitamin tablet) 1 tab PO DAILY nicotine (polacrilex) 4 mg buccal Q2H PRN 30 days pregabalin 200 mg PO BID 30 days testosterone 50 mg transdermal DAILY vitamin B complex (B Complex-Vitamin B12 tablet) 1 tab PO DAILY Tobacco use date assessed: 08/16/23 Fall risk assessment: No Falls in past year Last assessed Fall Risk: 10/04/23 Dental Screening Dental Screen Date: 08/16/23 HPI 6 month follow up HPI Details Pt is a smoker, part of the low-dose CT program. Pt has nicotine patches at home, he will start these when he is ready . Will send nicotine gum as well. Pt has a hx of aortic stenosis. Denies chest pain, shortness of breath, and fatigue. Anemia noted on last labs, will order further labs. Denies any blood in stool. [facility] Medical History BPH (benign prostatic hyperplasia) Aortic regurgitation Aortic stenosis Anterolisthesis of cervical spine COVID-19 vaccine series completed History of testicular cancer Personal history of nicotine dependence CRPS (complex regional pain syndrome), lower limb Neuritis of foot Left-sided low back pain with sciatica Anxiety disorder Back pain Surgical History History of esophagogastroduodenoscopy (EGD) (~2019) History of colonoscopy (~2019) History of orchiectomy Social History Housing: House Patient Tobacco Use Status: Current everyday Tobacco user Tobacco use type: Cigarette Cigarettes Per Day: 6 Years Smoked: 52 e-Cigarette/Vaping Use: Currently Using Second Hand Smoke Exposure: No service: No Current occupational status: retired and disabled Cognitive needs: No Hearing needs: No Vision needs: No Questionnaire PHQ-9 Over the last 2 weeks, how often have you been bothered by any of the following problems? 1. Little interest or pleasure in doing things: several days 2. Feeling down, depressed, or hopeless: several days 3. Trouble falling or staying asleep, or sleeping too much: several days 4. Feeling tired or having little energy: several days 5. Poor appetite or overeating: not at all 6. Feeling bad about yourself - or that you are a failure or have let yourself or your family down: several days 7. Trouble concentrating on things, such as reading the newspaper or watching television: several days 8. Moving or speaking so slowly that other people could have noticed. Or the opposite - being so fidgety or restless that you have been moving around a lot more than usual: not at all 9. Thoughts that you would be better off or of hurting yourself in some way: not at all Total score: 6 Depression Screening Interpretation: Negative Depression Screening Done: Yes 52040 - PHQ-9 Billing: Yes Source: Developed by Drs. Sarwat Lim, Adelia Sandhu, Dionicio Sunshine and colleagues, with an educational delmar from [employer]. Thrive Questionnaire Date Thrive assessed: 10/04/23 I am a: Patient What is your living situation today?: I have a steady place to live Within the past 12 months, did the food you bought not last and you didn't have the money to get more?: Never true Within the past 12 months, did you worry whether your food would run out before you got money to buy more?: Never true Do you have trouble paying for medicines?: No Do you have trouble getting transportation to medical appointments?: No Do you have trouble paying your heating and electricity bill?: No Do you have trouble taking care of your child, family member or friend?: No Do you have trouble with day-to-day activities such as bathing, preparing meals, shopping, managing finances, etc.?: No Are you currently unemployed and looking for a job?: No Are you interested in more education?: No Please select the resources that you would like help with: Housing/[facility] Currently or been in a relationship where the following occur: No concerns reported THRIVE Score: 0 AUDIT C Alcohol Use Questionnaire (AUDIT-C) 1. How often do you have a drink containing alcohol?: 2-3 times a week 2. How many drinks containing alcohol do you have on a typical day when you are drinking?: 7 to 9 3. How often do you have six or more drinks on one occasion?: Weekly Total Score: 9 MEERA-7 AMB Questionnaire MEERA-7 Date MEERA - 7 assessed: 10/04/23 Feeling nervous, anxious, or on edge: 1 = Several days Not being able to stop or control worryin = Several days Worrying too much about different things: 1 = Several days Trouble relaxin = Several days Being so restless that it is hard to sit still: 1 = Several days Becoming easily annoyed or irritable: 0 = Not at all Feeling afraid as if something awful might happen: 0 = Not at all Total MEERA-7 score (0-4 normal; 5-9 mild; 10-14 moderate; 15-21 severe): 5 Source: Developed by Drs. Sarwat Lim, Adelia Sandhu, Dionicio Sunshine and colleagues, with an educational delmar from [employer]. MEERA-7 Assessment Billing MEERA-7 Assessment Tool: MEERA-7 Assessment 39796 Review of Systems Const Reports as per HPI Physical exam (Primary Care) Vital Signs: Last Vital Signs Pulse 66 10/04/23 10:31 BP 136/80 10/04/23 10:31 Pulse Ox 98 10/04/23 10:31 Oxygen Delivery Method Room Air 10/04/23 10:31 BMI result Body Mass Index 19.8 Tobacco/Smoking Status: Tobacco use Status Tobacco use date assessed 08/16/23 10/04/23 10:30 Patient Tobacco Use Status Current everyday Tobacco 10/04/23 10:30 Tobacco use type Cigarette 10/04/23 10:30 e-Cigarette/Vaping Use Currently Using 10/04/23 10:30 PHQ-9: PHQ-9 Score PHQ-9: Total score 6 10/04/23 10:44 Depression Screening Interpretation: Negative Thrive Assessment: Date of Thrive Assessment Date Thrive assessed 10/04/23 10/04/23 10:30 Currently or been in a relationship where the following occur: No concerns reported Const General: cooperative Orientation/consciousness: patient oriented x3 Resp Effort & Inspection: normal respiratory effort Auscultation: clear to auscultation bilaterally Cardio Rate: regular rate Rhythm: regular rhythm Heart sounds: S1 normal heart sound present, S2 normal heart sound present and Murmur heart sound present systolic Neuro General: patient oriented x3 Psych Appearance: grossly normal Mental Status: mental status grossly normal Speech and movement: Normal speech and movement present Affect: normal affect Attitude: cooperative Thought process: Normal thought process present Thought content: Normal thought content present Insight: Good insight present (Psych) Judgement: Good judgement present (Psych) Assessment and Plan Assessment & Plan (1) Aortic stenosis: Code(s): I35.0 - Nonrheumatic aortic (valve) stenosis Plan: Stable (2) Smoker: Code(s): F17.200 - Nicotine dependence, unspecified, uncomplicated Plan: Pt has nicotine patches, sending gum (3) Anemia: Code(s): D64.9 - Anemia, unspecified Plan: Labs ordered, H+H rising Plan The patient agreed to the use of a medical surgical tech for this encounter. Scribed for LOUISE Shepherd by Audelia Brown medical surgical tech, on 10/04/2023 at 10:40 EST. Orders: Orders Complete Blood Count Auto Diff Today D64.9 - Anemia, unspecified IRON PROFILE Today D64.9 - Anemia, unspecified Ferritin Today D64.9 - Anemia, unspecified Vitamin B12 and Folate Today D64.9 - Anemia, unspecified Reticulocyte Count Today D64.9 - Anemia, unspecified Hemoglobin Electrophoresis Today D64.9 - Anemia, unspecified Medications: New nicotine (polacrilex) 4 mg buccal Q2H PRN 100 ea 0RF nicotine cravings 30 days Refilled pregabalin 200 mg PO BID 60 caps 1RF 30 days Coding Level of Care Code Est Pt Level 3 (14440) Diagnoses Aortic stenosis I35.0 Smoker F17.200 Anemia D64.9 Additional Codes MEERA-7 Assessment Billing - MEERA-7 Assessment Tool: MEERA-7 Assessment 52740 ([id number])
[2023-10-04 10:31] VITALS: BP 136/80; PULSE 66; O2SAT 98; BMI 19.8
== END 2023-10-04 10:52 | disposition home or self-care (01) ==
PROVIDERS: PCP Nurse Practitioner Family; Visit Provider Nurse Practitioner Family
DX: I35.0 Nonrheumatic aortic (valve) stenosis (principal); F17.200 Nicotine dependence, unspecified, uncomplicated; D64.9 Anemia, unspecified
CPT/HCPCS: 99213

== ENCOUNTER 2023-10-20 09:00 | Outpatient (RCR) | payer MEDICARE, SELFPAY ==
--- NOTE | 2023-10-06 09:57 | MHC.OT.EP ---
[address] [phone] Occupational Therapy Plan of Care Patient Name: Huber Sr Date of Evaluation: 10/06/23 Diagnosis: L DRF Pain Location: Pain free at rest Occasional sharp pain in left wrist w/ general use Pain Score: 3 Pain Scale Used: Numeric (0 - 10) Aggravating Factors: General movements Alleviating Factors: None needed Assessment: 68 yo male fell down flight of stairs while carrying object in his arms, was seen in ED one week later w/ left hand/wrist pain and right shoulder and neck pain. X-rays showed left DRF and cervical fx. He was placed in splint and soft collar and referred to [facility]. 08/22/23 follow-up w/ ortho and placed in cast for two weeks and now referred to OT to initiate hand therapy. Today on assessment, he reports improvements in B/L carpal tunnel symptoms, still w/ some tingling but has improved and reports no issues w/ coordination or sensation, Calvert Osiris shows intact light touch B/L'ly. He has slughtly decreased wrist flex/ext which improves w/ heat, ROM and gentle stretching during therapy today. 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 I anticipate he will do well w/ brief course of OT for porgression of range, strength and functional use of hand, with education on management of carpal tunnel symtpoms. Frequency and Duration: The patient will be seen 1x/wk for 3 weeks Short Term Goals: Wrist ext/flex 60/70 Gross grasp 60lb Ind w/ CTS symptoms Ind w/ progression of strengthening Security Supervisor Goals: same as above Treatment Plan: Therapeutic Exercise Therapeutic Activity Home Exercise Program Splinting Neuro Re-ed Patient Education Desensitization/Sensory Re-ed Edema Control ADL Training Ultrasound Paraffin Fluidotherapy MHP Cold Packs Joint Mobilization Soft Tissue Mobilization Kinesiotaping Electronically Signed By: Darshana Paniagua OTR/L CHT Please Sign and return to therapist. Thank you once again for your referral.
--- NOTE | 2023-11-15 11:48 | MHC.OT.DC ---
[address] [phone] F: [phone] Occupational Therapy Discharge Note Patient Name: Huber Sr Provider: River Posada PA-C Diagnosis: L DRF Date of Evaluation: 10/06/23 Date of Discharge: 11/15/23 Treatments to Date: 2 Discharge Summary: Huber was seen for initial assessment around 11 weeks s/p DRF. He was seen for one follow up and had been doing well and felt confident in self management. We left chart open in case patient required further follow ups, but we did not hear back and I anticipate he is doing well. Electronically Signed By: Darshana Paniagua, OTR/Gina CHT Please Sign and return to therapist, thank you for your referral.
== END 2023-11-15 11:49 | disposition home or self-care (01) ==
LOC: HO.OT 09:00
PROVIDERS: PCP Nurse Practitioner Family
DX: S52.502D Unspecified fracture of the lower end of left radius, subsequent encounter for closed fracture with routine healing (principal)
CPT/HCPCS: 97110; 97140; 97165

== ENCOUNTER → 2024-01-01 08:27 | Day surgery (SDC) | payer MEDICARE, SELFPAY ==
[2024-01-01 08:54] VITALS: BMI 20.1
[2024-01-01 09:17] VITALS: BP 156/71; PULSE 74; RESP 16; TEMP 36.7; O2SAT 97
--- NOTE | 2024-01-01 09:55 | PC.NURSE ---
Pt arrived or right CTR procedure per documentation/orders. Per pt has no s/s on the right hand and c/o left hand N/T. Dr. Quiroga notified by RN/at bedside with pt. Per surrgery was to be done on the right and an office visit will be needed to evaluate the left CTS. Pt agreed. Escorted to waiting area. Surgery for Right CTS canceled.
== END ==
LOC: HO.SSS 08:28
PROVIDERS: PCP Nurse Practitioner Family; Visit Provider Orthopaedic Surgery
DX: G56.01 Carpal tunnel syndrome, right upper limb (principal); Z53.29 Procedure and treatment not carried out because of patient's decision for other reasons
CPT/HCPCS: J0171; J2003

== ENCOUNTER 2024-01-23 09:34 | Outpatient (AMB) | payer MEDICARE, SELFPAY ==
[2024-01-23 09:43] VITALS: BMI 20.1
--- NOTE | 2024-01-23 09:43 | A.OFFVIS_ITS ---
Vital Signs 01/23/24 09:43 Height 5 ft 9 in Weight 136 lb BMI 20.1 Intake Visit Reasons: OV - discuss left CTR Intake Note: Huber is a 68 year old right hand dominant male who presents today to discuss left carpal tunnel release. 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 Reports left thumb locking. Has tried OT in the past. Denies any prior injuries or surgeries to the left hand. EMG done 09/27/23. Allergies No Known Allergies [No Known Allergies*] Allergy (Verified 01/23/24 09:43) HPI HPI OV - discuss left CTR: Details: The patient is a 68-year-old nediv-mfcj-mcuoqiht retired man who is being seen today with a chief complaint of numbness and tingling in his left hand. He says he has some persistent numbness in the tips of his thumb index and middle finger. He also gets worsening of his symptoms at night and with activities like riding his bike. He also complains that his left thumb has locked up a few times. It does not hurt and does not happen often. Of note, he had been scheduled for a right carpal tunnel release, but says that it canceled the appointment because it is no longer bothering him. He is also status post a left distal radius fracture that occurred when he fell down some stairs on 08/05/2023. This was managed non operatively in a cast. He also fractured his left C-spine during the fall and had followed up with the neurosurgeons for this issue. He is a smoker and smokes 3-4 cigarettes a day on average. [facility] Medical History BPH (benign prostatic hyperplasia) Aortic regurgitation Aortic stenosis Anterolisthesis of cervical spine COVID-19 vaccine series completed History of testicular cancer Personal history of nicotine dependence CRPS (complex regional pain syndrome), lower limb Neuritis of foot Left-sided low back pain with sciatica Anxiety disorder Back pain Surgical History History of esophagogastroduodenoscopy (EGD) (~2019) History of colonoscopy (~2019) History of orchiectomy Social History Housing: House Are you a primary day care supervisor to a significant other at home: No Do you presently have visiting nurse or other home services: No Patient Tobacco Use Status: Current everyday Tobacco user Tobacco use type: Cigarette Cigarettes Per Day: 5 Years Smoked: 52 e-Cigarette/Vaping Use: Currently Using Second Hand Smoke Exposure: No service: No Current occupational status: retired and disabled Cognitive needs: No Hearing needs: No Vision needs: No Physical Exam Vital Signs: BMI result Body Mass Index 20.1 Extrem Other: The patient was alert oriented and in no acute distress. Regarding his left hand: He has some numbness to the tips of the thumb index and middle fingers. Sensation is more normal extending proximally along these digits. Good cap refill. Good APB muscle belly firing. Ulnar and radial nerve motor and sensory were all grossly intact. Regarding his right hand: Normal sensation to the tips of all digits today. He says he does not have trouble with numbness and tingling in his hand anymore. No thenar or intrinsic wasting. Median ulnar radial nerve motor and sensory all grossly intact. He can make a fist bilaterally and extend all of his digits. No visible locking or catching. With specific attention to the left thumb I saw no locking or catching today, and he had no tenderness over the A1 luisa of the left thumb. Nerve Conduction Studies: Left side only IMPRESSION: 1. THIS IS AN ABNORMAL STUDY. 2. There is electrodiagnostic evidence for left moderate to severe median neuropathy at the wrist consistent with carpal tunnel syndrome. 3. There is no electrodiagnostic evidence for ulnar neuropathy, brachial plexopathy, or cervical radiculopathy. Leslie Marino MD 09/27/2023 Right-side only IMPRESSION: 1. This is an abnormal study. 2. There is electrodiagnostic evidence for right moderate-severe median neuropathy at the wrist, consistent with carpal tunnel syndrome. 3. There is no electrodiagnostic evidence for ulnar neuropathy, brachial plexopathy, or cervical radiculopathy. Assessment & Plan Assessment & Plan (1) Carpal tunnel syndrome of right wrist: Code(s): G56.01 - Carpal tunnel syndrome, right upper limb Category: Medical (2) Carpal tunnel syndrome of left wrist: Code(s): G56.02 - Carpal tunnel syndrome, left upper limb Category: Medical Plan Assessment and plan: 1. Left carpal tunnel syndrome, moderate to severe Dense numbness to the tips of the thumb index and middle fingers I educated him about this condition We discussed operative and non operative treatment options, including the risks of delaying treatment.. I am recommending operative treatment. The risks and benefits of operative treatment were discussed with the patient and the patient wishes to proceed with surgery. These risks include, but are not limited to risk of damage to blood vessels, nerves, tendons, infection, recurrence, incomplete relief of preoperative symptoms, persistent pain, possi ble need for further surgery and the risks associated with regional blocks and anesthesia. The plan is to take the patient to the operating room sometime in the next few weeks for the following procedures: 1. Left carpal tunnel release, under local 2. [ ] All of the preoperative paperwork including the consent was filled out today. All the patient's questions were answered. The patient understands that they will be contacted by our hot top liner helper soon to schedule this procedure Note that he is an avid bicycle rider. I did explain to him that he will need to refrain from riding his bicycle for at least 4 weeks postoperatively. 2. Right carpal tunnel syndrome, moderate to severe Patient had been scheduled for surgery, but canceled. Patient denies having any problems with numbness and tingling in the right hand. 3. Left distal radius fracture Date of injury 08/05/2023 Managed non operatively in a cast. This went on to heal well. He had denied OT hand therapy and preferred to work on range of motion exercises on his own. No complaints today. Coding Level of Care Code Est Pt Level 4 (04354) Diagnoses Carpal tunnel syndrome of right wrist G56.01 Carpal tunnel syndrome of left wrist G56.02
== END 2024-01-23 10:15 | disposition home or self-care (01) ==
PROVIDERS: PCP Nurse Practitioner Family; Visit Provider Orthopaedic Surgery
DX: G56.03 Carpal tunnel syndrome, bilateral upper limbs (principal)
CPT/HCPCS: 99214

== ENCOUNTER → 2024-01-23 09:34 | Outpatient (BNVA) | payer MEDICARE, SELFPAY | PROVIDERS: PCP Nurse Practitioner Family; Visit Provider Orthopaedic Surgery | DX: G56.03 Carpal tunnel syndrome, bilateral upper limbs (principal) | CPT/HCPCS: 99212 ==

== ENCOUNTER 2024-03-04 12:01 | Day surgery (SDC) | payer MEDICARE, SELFPAY ==
[2024-03-04 12:47] VITALS: BMI 21.3
[2024-03-04 12:56] VITALS: BP 152/69; PULSE 63; RESP 14; TEMP 36.7; O2SAT 98
--- NOTE | 2024-03-04 14:03 | MHC.SHP ---
Pre-Procedural Eval Section A - 24 Hr Update-Section A only Date of Service: 03/04/24 The patient is an INPATIENT: No Changes since office visit: No Cold of Flu in the past 2 weeks, No New Medical Problems, No Changes in Medication and No Patient answered all questions The patient has been examined within 24 hours of the surgical procedure. The History & Physical has been completed within 30 days and I have reviewed it.: Yes Section B - Complete if H&P > 30 days Chief Complaint: Carpal tunnel syndrome, left upper limb Allergies: Allergies Allergy/AdvReac Type Severity Reaction Status Date / Time No Known Allergies Allergy Verified 03/04/24 12:45 [No Known Allergies*] Plan Diagnosis/Plan: Unchanged I have reviewed the history and physical and performed a pertinent physical examination on my patient. No changes have occurred unless specified. Time Spent With Patient Time: Total time managing care of this patient today ____ minutes.
--- NOTE | 2024-03-04 14:04 | W.PM.OPN ---
Operative Note Operative Note Date of Service: 03/04/24 Narrative: Preop diagnosis: 1. Left Carpal tunnel syndrome Postop diagnosis: same Procedure: 1. Left Carpal tunnel release Surgeon: Dianne Quiroga MD Peanut Shaker: None Anesthesia: local block using 1% lidocaine with epinephrine Findings: Thickened transverse carpal ligament. EBL: Less than 5 mL Specimens: None Complications: None Disposition: Brought to recovery room in stable condition Plan: Follow-up for 10-14 days for wound check and suture removal Indications: The patient is 68 years old, with left carpal tunnel syndrome that has been unresponsive to nonoperative management. The risks and benefits of operative treatment including but not limited to risk of damage to blood vessels, nerves, tendons, infection, persistent pain, persistent symptoms, or possible need for additional surgery were discussed with the patient and the patient wishes to proceed with surgery. Procedure: Once consent was obtained a local block was performed using a combination of 1% lidocaine with epinephrine. The patient was then brought back to the operating suite and placed on the operative table in supine position. The left upper extremity was prepped and draped in a standard surgical fashion. Once assured that we had a good block, a 2.0 cm longitudinal incision was made centered over the carpal tunnel. The incision was made through the skin to the subcutaneous tissues using a #15 blade. Dissection was made down to the level of the transverse carpal ligament with care being taken to protect the palmar cutaneous nerve. Once the transverse carpal ligament was clearly visualized, a longitudinal incision was made in the transverse carpal ligament 1st using a #15 blade, then using tenotomy scissors under direct visualization. Care was taken to look for and protect the motor branch of the median nerve when seen in this area. Once satisfied with our carpal tunnel release the wound was copiously irrigated with normal saline and hemostasis was obtained with a brief period of local pressure. The skin edges were reapproximated with some 5.0 nylon suture material and a sterile dressing was applied. The patient appears to have tolerated the procedure well and with no complications. All digits were well vascularized at the conclusion of the case.
--- NOTE | 2024-03-04 14:42 | PC.NURSE ---
unable to print dc paper work for pt d/t power outage. written down for pt.
== END 2024-03-04 14:41 | disposition home or self-care (01) ==
PROVIDERS: PCP Nurse Practitioner Family; Visit Provider Orthopaedic Surgery
PROC: (CPT 64721; principal; 2024-03-04 13:30)
DX: G56.02 Carpal tunnel syndrome, left upper limb (principal); R20.0 Anesthesia of skin; R20.2 Paresthesia of skin; F41.9 Anxiety disorder, unspecified; G90.529 Complex regional pain syndrome I of unspecified lower limb; M43.12 Spondylolisthesis, cervical region; N40.0 Benign prostatic hyperplasia without lower urinary tract symptoms; Z85.47 Personal history of malignant neoplasm of testis; Z90.79 Acquired absence of other genital organ(s); Z87.81 Personal history of (healed) traumatic fracture; F17.210 Nicotine dependence, cigarettes, uncomplicated
CPT/HCPCS: 64721; J0171; J2003; J2004

== ENCOUNTER → 2024-03-04 12:01 | Outpatient (BNV) | payer MEDICARE, SELFPAY | PROVIDERS: PCP Nurse Practitioner Family; Visit Provider Orthopaedic Surgery | DX: G56.02 Carpal tunnel syndrome, left upper limb (principal) | CPT/HCPCS: 64721 ==

== ENCOUNTER 2024-03-19 11:32 | Outpatient (AMB) | payer MEDICARE, SELFPAY ==
--- NOTE | 2024-03-19 11:34 | MHC.OFFVIS ---
Intake Visit Reasons: PO LT CTR 03/04/24 AR Intake Note: Huber is a 68 year old right hand dominant male who presents today for a post operative visit s/p Left Carpal Tunnel Release DOS: 03/04/24 w/ Dr Quiroga. Patient reports that he is doing well, his numbness and tingling is still present. He complains of locking and catching of the left thumb as well. Allergies No Known Allergies [No Known Allergies*] Allergy (Verified 03/04/24 12:45) HPI HPI PO LT CTR 03/04/24 AR: Details: Huber is a 68 year old right hand dominant male who presents today for a post operative visit s/p Left Carpal Tunnel Release DOS: 03/04/24 w/ Dr Quiroga. Patient reports that he is doing well, his numbness and tingling is still present. He complains of locking and catching of the left thumb as well. [facility] Medical History BPH (benign prostatic hyperplasia) Aortic regurgitation Aortic stenosis Anterolisthesis of cervical spine COVID-19 vaccine series completed History of testicular cancer Personal history of nicotine dependence CRPS (complex regional pain syndrome), lower limb Neuritis of foot Left-sided low back pain with sciatica Anxiety disorder Back pain Surgical History History of esophagogastroduodenoscopy (EGD) (~2019) History of colonoscopy (~2019) History of orchiectomy Social History Housing: House Are you a primary health care / medical job titles to a significant other at home: No Do you presently have visiting nurse or other home services: No Patient Tobacco Use Status: Current everyday Tobacco user Tobacco use type: Cigarette Cigarettes Per Day: 5 Years Smoked: 52 e-Cigarette/Vaping Use: Currently Using Second Hand Smoke Exposure: No service: No Current occupational status: retired and disabled Cognitive needs: No Hearing needs: No Vision needs: No Review of Systems Const All systems reviewed & are unremarkable except as noted in HPI and below Physical Exam Extrem Other: Patient is alert, oriented, and in no acute distress. Neuro: Diminished sensation of the tips of all digits of the median nerve distribution of the left hand at this time Normal sensation of the tips of all other digits of the left hand Vascular: Cap refill brisk Pain: Very mild Tenderness to palpation of the A1 luisa of the left thumb No tenderness to palpation about the incision site No pain range of motion of the left hand ROM: Patient is able to make a closed fist and extend all digits of the left hand fully There is no visible and palpable locking and catching of the left thumb in the office today Skin: Well approximated and well healing incision site noted on the volar aspect of the patient's left wrist General: No ecchymosis, erythema, or evidence of infection. Psych: Appears grossly normal Affect normal Attitude cooperative Assessment & Plan Assessment & Plan (1) Carpal tunnel syndrome of left wrist: Code(s): G56.02 - Carpal tunnel syndrome, left upper limb Category: Medical (2) Trigger thumb, left thumb: Code(s): M65.312 - Trigger thumb, left thumb Category: Medical Plan 1. Carpal tunnel syndrome, left, status post carpal tunnel release DOS 03/04/2024 Patient appears to be recovering well postoperatively Patient is educated about the typical recovery course At this time, patient was informed that he will require no further acute follow-up with us for this issue Patient was amenable to this plan 2. Trigger thumb, left thumb Patient states he is not bothered by this and does not feel he requires any intervention at this time Patient is educated on the risks of prolonging treatment, including pain and worsening locking and catching Patient states understanding of these risks Patient will follow-up when he feels he requires treatment for this issue Coding Level of Care Code Global (53487) Diagnoses Carpal tunnel syndrome of left wrist G56.02 Trigger thumb, left thumb M65.312
--- OUTSIDE RECORDS SUMMARY | 2024-03-19 13:19 | XMS_ITS | Patient Health Record ---
Author Organization [facility] Address [address] [place] [address] Care Team Providers Care Book Packer Name Role Phone Rafael Burch Primary Care Provider Unavailab benito Joy MD MSc, [facility] Unavailable [phone] Allergies No Known Allergies Reason For Referral No Information Medications Medication SIG (Take, Route, Frequency, Duration) Notes Start Date End Date Status Testosterone 50 MG/5GM (1%) 1 packet to skin in the morning to shoulder, upper arms or abdomen Transdermal Once a day Active HYDROcodone-Acetaminophen 5-325 MG 1-2 tablets as needed Orally every 6 hrs, NTE 5 tabs daily, partial refills on request for 3 days 12/17/2019 Not-Taking DULoxetine HCl 20 MG 1 capsule Orally On ce a day for 30 day(s) 07/09/2020 Active Aspirin 81 MG 1 tablet Orally Once a day for 30 day(s) Active Finasteride 5 MG 1 tablet Orally Once a day for 30 day(s) Active HYDROcodone-Acetaminophen 5-325 MG 1-2 tablet as needed Orally every 6 hrs. Partial fill per request for 5 days 02/20/2020 Not-Taking Cephalexin 500 MG as directed Orally 2 caps 1 hr prior to procedure on day 1 On days 2 and 3: 1 cap bid for 3 days 12/19/2019 Not-Taking ALPRAZolam 0.25 MG as directed Orally 1 tab 1 hr prior to procedure and repeat as needed in 30 minutes for 1 day 12/19/2019 Not-Taking ALPRAZolam 0.25 MG as directed Orally T lionel 1 tab 1 hour prior to procedure and 1 tab at time of procedure. for 1 days 02/14/2020 Active Cephalexin 500 MG as directed Orally 2 caps 1 hr before procedure on Day 1 On Days 2 and 3: 1 cap bid for 3 days 12/12/2019 Not-Taking Pregabalin 50 MG 1 capsule Orally qhs for 1 week, then 1 bid for 1 week then 1 tid for 30 days 07/15/2020 Active Alprazolam 0.25 MG 1 tablet Orally 1 ho ur before procedure. May repeat once at time of procedure for 1 day 12/12/2019 Not-Taking Vitamin B12 100 MCG as directed Orally Active CeleBREX 200 MG 1 capsule with food Orally Once a day for 30 day(s) Not-Taking HYDROcodone-Acetaminophen 5-325 MG 1-2 tablet as needed Orally every 6 hrs. PRN for pain for 10 days 10/15/2019 Not-Taking Cephalexin 500 MG as directed Orally T lionel 2 caps prior to procedure. Day 2 &3 take 1 cap AM and 1 cap PM for 3 days 02/14/2020 Not-Taking Gabapentin 100 MG as directed Orally 3 caps qhs for 1 wk then 1 qam and 3 caps qhs for 1 wk , then 1 bid and 3 caps qhs for 30 day(s) 03/20/2020 Not-Taking ALPRAZolam 0.25 MG as directed Orally T lionel 1 tab 1 hour prior to procedure and 1 tab at time of procedure for 1 days 10/15/2019 Not-Taking Cephalexin 500 MG as directed Orally T lionel 1 cap 1 hour prior to procedure and 1 cap at time of procedure. Day 2&3 take 1 cap AM and 1 cap PM for 3 days 10/15/2019 Not-Taking Social History Alcohol screen Question Answer Notes Did you have a drink containing alcohol in the p ast year? Yes How often did you have a dri nk containing alcohol in the past year? Monthly or less How many drinks did you have on a typical day when you were drinking in the past year? 5 or 6 How often did you have six o r more drinks on one occasion in the past year? Monthly Points 5 Interpretation Positive Drug Question Answer Notes Have you used drugs other th an those for medical reasons in the past 12 months? No Problems Problem Type SNOMED Code ICD Code Onset Dates Problem Status W/U Status Risk Notes Problem Plantar nerve lesion (246673227) Lesion of plantar nerve, unspecified lower limb (G57.60) Active confirmed Problem Plantar nerve lesion (960691879) Lesion of plantar nerve, left lower limb (G57.62) Active confirmed Problem Lesion of left plantar nerve (66325887597 9104) Lesion of left plantar nerve (G57.62) Active confirmed Problem Lesion of right plantar nerve (55427421357 9108) Lesion of right plantar nerve (G57.61) Active confirmed Plan Of Treatment Pending Test Test Name Order Date xray: left foot, AP/Lateral, weight bear ing 06/04/2020 xray: right foot, AP/Lateral, weight effie ring 06/04/2020 Insurance Providers Payer Name Payer Address Payer Phone Subscriber Number Group Number Insured Name Patient Relationship to Insured Coverage Start Date Coverage End Date [facility] [address] [place], [place] [id number] Huber Galvin Self - patient is the insured Medical (General) History Medical History History ICD Code Hypertension Back pain Anxiety disorder Left sciatic pain Surgical History Surgery Date(Month/Year) Left foot nerve decompression 2nd and 3r d IM spaces 05/08/2019
== END 2024-03-19 12:07 | disposition home or self-care (01) ==
PROVIDERS: PCP Nurse Practitioner Family
DX: G56.02 Carpal tunnel syndrome, left upper limb (principal); M65.312 Trigger thumb, left thumb
CPT/HCPCS: 99024

== ENCOUNTER → 2024-03-19 11:32 | Outpatient (BNVA) | payer MEDICARE, SELFPAY | PROVIDERS: PCP Nurse Practitioner Family | DX: Z47.89 Encounter for other orthopedic aftercare (principal); M65.312 Trigger thumb, left thumb; Z98.890 Other specified postprocedural states | CPT/HCPCS: 99212 ==

== ENCOUNTER 2024-03-27 10:07 | Outpatient (AMB) | payer MEDICARE, SELFPAY ==
[2024-03-27 10:09] VITALS: BP 122/70; PULSE 58; O2SAT 94; BMI 20.1
--- NOTE | 2024-03-27 10:09 | A.OFFPC_ITS ---
Vital Signs 03/27/24 10:09 Height 5 ft 9 in Weight 136 lb BMI 20.1 BP 122/70 Blood Pressure Location Rt brachial Position Sitting Pulse 58 Pulse Source Pulse Oximeter Pulse Oximetry (%) 94 Oxygen Delivery Method Room Air Intake Visit Reasons: 6 month follow up Intake Note: pt is here for 6 month f/up Field Servicer Required: No Accompanied by: Self / Same As Patient Allergies No Known Allergies [No Known Allergies*] Allergy (Verified 03/27/24 10:38) Medication List - Last Reconciled 03/27/24 by COLLINS Kang amitriptyline 25 mg PO BEDTIME 90 days cholecalciferol (vitamin D3) 50 mcg PO DAILY finasteride 5 mg PO DAILY melatonin 8 mg PO .HS multivitamin (Daily Multi-Vitamin tablet) 1 tab PO DAILY pregabalin 200 mg PO BID 30 days testosterone 50 mg transdermal DAILY Tobacco use date assessed: 03/27/24 Fall risk assessment: No Falls in past year Last assessed Fall Risk: 03/27/24 Dental Screening Dental Screen Date: 03/27/24 Did you have a dental visit in the last 12 months?: Yes Did you have a dental problem in the last 6 months where you did not have access to dental care?: No Was dental information given to patient?: Patient has dentist HPI 6 month follow up HPI Details Chief Complaint The patient is experiencing discomfort due to Complex Regional Pain Syndrome in the left foot. History of Present Illness The patient is a 69-year-old male presenting with Complex Regional Pain Syndrome (CRPS) of the left foot. This condition has been persistent despite seeing multiple specialists for treatment. Current management includes 10 mg of amitriptyline, which the patient takes well at night. Treatment thus far has failed to alleviate the discomfort experienced. Additionally, the patient has a systolic heart murmur, and he continues to smoke, for which he is part of a low-dose CAT scan program. Social History - Tobacco Use: The patient currently smo kes and is involved in a low-dose CAT scan program for monitoring. Health Maintenance - Participation in a low-dose CAT scan cadni santos for tobacco users. Review of Systems Physical Exam General: Cooperative, healthy appearing, comfortable, no acute distress and well developed, skinny stature Orientation: Patient oriented x3 Limitations: No limitations Head: Normal to inspection Ears: Hearing grossly normal bilaterally Nose: Normal external nose present Face and sinus: Normal facial exam Eyes: Appearance normal, both eyes and all related structures Neck: Normal visual inspection and Yes full ROM Respiratory: Normal respiratory effort and able to speak in complete sentences. Fairly clear to auscultation bilaterally Cardiovascular: Regular rate and rhythm. S1 S2 systolic murmur noted GI: Normal to inspection. Soft to palpation and nontender Skin: No rashes or lesions noted Neuro: Patient oriented x3 Extremities: Normal to inspection Results Plan - Increase amitriptyline dosage from 10 mg to 25 mg and monitor for efficacy. - Consider duloxetine or low-dose tramad ol if current management is ineffective after six weeks. - Continue participation in the low-dose CAT scan program for lung monitoring due to ongoing tobacco use. Patient was informed and verbally consented to the use of an ambient scribe for clinic note documentation during this visit. Discussion Notes I discussed with the patient the challenges of managing Complex Regional Pain Syndrome of the left foot. We reviewed the increase in amitriptyline dosage and the possibility of future options, such as duloxetine or low-dose tramadol, to improve pain control. I advised him to contact me in six weeks to assess the response to the increased dosage. Additionally, we reviewed the importance of continued monitoring through the low-dose CAT scan program due to his smoking status. Patient Instructions - Take the increased dosage of amitripty line (25 mg) at night. - Contact me in approximately six weeks to report on the effectiveness of the increased dosage. - Continue participation in the low-dose CAT scan program. - Avoid smoking to improve overall healt h and respiratory function. [facility] Medical History BPH (benign prostatic hyperplasia) Aortic regurgitation Aortic stenosis Anterolisthesis of cervical spine COVID-19 vaccine series completed History of testicular cancer Personal history of nicotine dependence CRPS (complex regional pain syndrome), lower limb Neuritis of foot Left-sided low back pain with sciatica Anxiety disorder Back pain Surgical History History of esophagogastroduodenoscopy (EGD) (~2019) History of colonoscopy (~2019) History of orchiectomy Social History Housing: House Are you a primary care attendant to a significant other at home: No Do you presently have visiting nurse or other home services: No Patient Tobacco Use Status: Current everyday Tobacco user Tobacco use type: Cigarette Cigarettes Per Day: 5 Years Smoked: 52 Packs per year/per ci.00 e-Cigarette/Vaping Use: Currently Using Second Hand Smoke Exposure: No service: No Current occupational status: retired and disabled Cognitive needs: No Hearing needs: No Vision needs: No Questionnaire PHQ-9 Over the last 2 weeks, how often have you been bothered by any of the following problems? 1. Little interest or pleasure in doing things: more than half the days 2. Feeling down, depressed, or hopeless: more than half the days 3. Trouble falling or staying asleep, or sleeping too much: more than half the days 4. Feeling tired or having little energy: more than half the days 5. Poor appetite or overeating: not at all 6. Feeling bad about yourself - or that you are a failure or have let yourself or your family down: not at all 7. Trouble concentrating on things, such as reading the newspaper or watching television: several days 8. Moving or speaking so slowly that other people could have noticed. Or the opposite - being so fidgety or restless that you have been moving around a lot more than usual: not at all 9. Thoughts that you would be better off or of hurting yourself in some way: not at all Total score: 9 Depression Screening Interpretation: Positive Depression Screening Done: Yes 29980 - PHQ-9 Billing: Yes Source: Developed by Drs. Sarwat Lim, Adelia Sandhu, Dionicio Sunshine and colleagues, with an educational delmar from [employer]. Thrive Questionnaire Date Thrive assessed: 03/27/24 I am a: Patient What is your living situation today?: I have a steady place to live Within the past 12 months, did the food you bought not last and you didn't have the money to get more?: Never true Within the past 12 months, did you worry whether your food would run out before you got money to buy more?: Never true Do you have trouble paying for medicines?: No Do you have trouble getting transportation to medical appointments?: No Do you have trouble paying your heating and electricity bill?: No Do you have trouble taking care of your child, family member or friend?: No Do you have trouble with day-to-day activities such as bathing, preparing meals, shopping, managing finances, etc.?: No Are you currently unemployed and looking for a job?: No Are you interested in more education?: No Please select the resources that you would like help with: None Currently or been in a relationship where the following occur: No concerns reported THRIVE Score: 0 AUDIT C Alcohol Use Questionnaire (AUDIT-C) 1. How often do you have a drink containing alcohol?: 4 or more times a week 2. How many drinks containing alcohol do you have on a typical day when you are drinking?: 7 to 9 3. How often do you have six or more drinks on one occasion?: Weekly Total Score: 10 Score Reviewed/Action Taken: Yes MEERA-7 AMB Questionnaire MEERA-7 Date MEERA - 7 assessed: 03/27/24 Feeling nervous, anxious, or on edge: 2 = More than half the days Not being able to stop or control worryin = More than half the days Worrying too much about different things: 2 = More than half the days Trouble relaxin = More than half the days Being so restless that it is hard to sit still: 2 = More than half the days Becoming easily annoyed or irritable: 2 = More than half the days Feeling afraid as if something awful might happen: 2 = More than half the days Total MEERA-7 score (0-4 normal; 5-9 mild; 10-14 moderate; 15-21 severe): 14 Source: Developed by Drs. Sarwat Lim, Adelia Sandhu, Dionicio Sunshine and colleagues, with an educational delmar from [employer]. MEERA-7 Assessment Billing MEERA-7 Assessment Tool: MEERA-7 Assessment 52989 Physical exam (Primary Care) Vital Signs: Last Vital Signs Pulse 58 03/27/24 10:09 BP 122/70 03/27/24 10:09 Pulse Ox 94 03/27/24 10:09 Oxygen Delivery Method Room Air 03/27/24 10:09 BMI result Body Mass Index 20.1 Tobacco/Smoking Status: Tobacco use Status Tobacco use date assessed 03/27/24 03/27/24 10:11 Patient Tobacco Use Status Current everyday Tobacco 03/27/24 10:11 Tobacco use type Cigarette 03/27/24 10:11 e-Cigarette/Vaping Use Currently Using 03/27/24 10:11 PHQ-9: PHQ-9 Score PHQ-9: Total score 9 03/27/24 10:41 Depression Screening Interpretation: Positive Thrive Assessment: Date of Thrive Assessment Date Thrive assessed 03/27/24 03/27/24 10:11 Currently or been in a relationship where the following occur: No concerns reported Coding Level of Care Code Est Pt Level 3 (37347) Diagnoses Anemia D64.9 Additional Codes MEERA-7 Assessment Billing - MEERA-7 Assessment Tool: MEERA-7 Assessment 01762 ([id number]) PHQ-9 - 81313 - PHQ-9 Billing: Yes ([id number]) Assessment & Plan Assessment & Plan (1) Anemia: Code(s): D64.9 - Anemia, unspecified Category: Medical Plan . Orders: Orders Complete Blood Count Auto Diff Today D64.9 - Anemia, unspecified Lipid Panel Today D64.9 - Anemia, unspecified Ferritin Today D64.9 - Anemia, unspecified Vitamin B12 and Folate Today D64.9 - Anemia, unspecified Comprehensive Independence. Panel Fast Today D64.9 - Anemia, unspecified TSH reflex Free T4 Today D64.9 - Anemia, unspecified UA CC w/rflx Micro + Cult Today D64.9 - Anemia, unspecified Hemoglobin Electrophoresis Today D64.9 - Anemia, unspecified Lactate Dehydrogenase Today D64.9 - Anemia, unspecified Medications: Changed From amitriptyline 10 mg PO BEDTIME 90 days 90 tabs 1RF To amitriptyline 25 mg PO BEDTIME 90 tabs 1RF 90 days
== END 2024-03-27 11:02 | disposition home or self-care (01) ==
PROVIDERS: PCP Nurse Practitioner Family; Visit Provider Nurse Practitioner Family
DX: D64.9 Anemia, unspecified (principal)

== ENCOUNTER → 2024-03-27 10:07 | Outpatient (BNVA) | payer MEDICARE, SELFPAY | PROVIDERS: PCP Nurse Practitioner Family; Visit Provider Nurse Practitioner Family | DX: D64.9 Anemia, unspecified (principal) | CPT/HCPCS: 96127; 99212 ==

== ENCOUNTER → 2024-04-17 11:03 | Outpatient (BNV) | payer MEDICARE, SELFPAY | PROVIDERS: PCP Nurse Practitioner Family; Visit Provider Internal Medicine Cardiovascular Disease | DX: I35.2 Nonrheumatic aortic (valve) stenosis with insufficiency (principal); I34.0 Nonrheumatic mitral (valve) insufficiency; I36.1 Nonrheumatic tricuspid (valve) insufficiency | CPT/HCPCS: 93306 ==

== ENCOUNTER 2024-05-08 13:39 | Outpatient (REF) | payer MEDICARE, SELFPAY ==
[2024-05-08 16:16] LABS: MANUAL DIFF FLAG NO
[2024-05-08 16:20] LABS: Basophils Percent Auto 1.1 % (0-2); Eosinophils Absolute Auto 0.4 X10*3/uL (0.0-0.4); Eosinophils Percent Auto 10.8 % (0-4); Hematocrit 40.8 % (42.0-52.0); Hemoglobin 13.7 g/dl (14.0-18.0); Imm Gran Abs Auto 0.01 X10*3/uL (0.00-0.03); Imm Gran Pct Auto 0.3 % (0.0-0.4); Lymphocytes Absolute Auto 0.8 X10*3/uL (1.2-4.9); Lymphocytes Percent Auto 21.4 % (20-40); Mean Corpuscular HGB Conc 33.6 g/dl (31.0-36.0); Mean Corpuscular Hemoglobin 31.3 pg (27.0-33.0); Mean Corpuscular Volume 93.2 fL (80.0-98.0); Mean Platelet Volume 10.6 fL (9.4-12.4); Monocytes Absolute Auto 0.4 X10*3/uL (0.1-1.2); Monocytes Percent Auto 10.3 % (2-11); Neutrophils Absolute Auto 2.1 x10*3/uL (2.0-8.3); Neutrophils Percent Auto 56.1 % (45-73); Platelet Count 207 X10*3/uL (160-400); Red Blood Count 4.38 X10*6/uL (4.60-5.80); Red Cell Distribution Width 13.6 % (11.0-16.0); White Blood Count 3.7 X10*3/uL (4.8-10.8)
[2024-05-08 16:32] LABS: Appearance Urine Clear; Color Urine Yellow; Glucose Urine UA Negative (Negative); Leukocyte Esterase Urine Negative (Negative); Nitrite Urine Negative (Negative); Urine Blood Negative (Negative); Urine Ketones Negative (Negative); Urine Protein Negative (Neg-Trace)
--- OUTSIDE RECORDS SUMMARY | 2024-05-08 16:45 | XMS_ITS | Clinical Summary ---
Author Organization [facility] it Address [address] [place] [address] Care Team Providers Care Electric Welder Helper Name Role Phone Unavailable Primary Care Provider Unavailabl e Social History Tobacco Use Types Packs/Day Years Used Date Smoking Tobacco: Never Assessed Sex and Gender Information Value Date Recorded Sex Assigned at Not on file Legal Sex Male 8:37 AM EST Gender Identity Not on file Sexual Orientation Not on file Plan of Treatment Health Maintenance Due Date Last Done Comments DTaP,Tdap,and Td Vaccines (1 - Tdap) 1973 Pneumococcal Vaccine: 50+ Ye ars (1 of 1 - PCV) 2004 Zoster Vaccines (1 of 2) 2004 Abdominal Aortic Aneurysm (A AA) Screen 02/13/2022 Cholesterol Screening (Lipid Panel) 02/13/2022 Colorectal Cancer Screening: Colonoscopy 02/13/2022 Depression Screening 02/13/2022 Falls Risk Assessment 02/13/2022 Hepatitis C Screening 02/13/2022 Social Influencers of Health Screening 02/13/2022 COVID-19 Vaccine ( - 2023-2 5 season) 2023 Influenza Vaccine (#1) 2023 RSV Immunization Patients 60 + Years Old (1 - 1-dose 75+ series) 2029 HIB Vaccines Aged Out No longer eligi ble based on patient's age to complete this topic HPV Vaccines Aged Out No longer eligi ble based on patient's age to complete this topic Hepatitis A Vaccines Aged Out No long er eligible based on patient's age to complete this topic Hepatitis B Vaccines Aged Out No long er eligible based on patient's age to complete this topic IPV Vaccines Aged Out No longer eligi ble based on patient's age to complete this topic MMR Vaccines Aged Out No longer eligi ble based on patient's age to complete this topic Meningococcal ACWY Vaccine Aged Out N o longer eligible based on patient's age to complete this topic Meningococcal B Vacine Aged Out No lo nger eligible based on patient's age to complete this topic RSV Immunization Patients Un ayla 20 months Aged Out No longer eligible b ased on patient's age to complete this topic Varicella Vaccines Aged Out No longer eligible based on patient's age to complete this topic
--- OUTSIDE RECORDS SUMMARY | 2024-05-08 16:45 | XMS_ITS | Patient Health Record ---
Author Organization [facility] Address [address] [place] [address] Care Team Providers Care Beaming Machine Operator Name Role Phone Rafael Burch Primary Care Provider Unavailab benito Joy MD MSc, [facility] Unavailable [phone] Allergies No Known Allergies Reason For Referral [...] Status Risk Notes Problem Plantar nerve lesion ([id number]) Lesion of plantar nerve, unspecified lower limb (G57.60) Active confirmed Problem Plantar nerve lesion (890105064) Lesion of plantar nerve, left lower limb (G57.62) Active confirmed Problem Lesion of left plantar nerve (82324057437 9104) Lesion of left plantar nerve (G57.62) Active confirmed Problem Lesion of right plantar nerve (05157700745 9108) Lesion of right plantar nerve (G57.61) Active confirmed Plan Of Treatment Pending Test Test Name Order Date xray: left foot, AP/Lateral, weight bear ing 06/04/2020 xray: right foot, AP/Lateral, weight effie ring 06/04/2020 Insurance Providers Payer Name Payer Address Payer Phone Subscriber Number Group Number Insured Name Patient Relationship to Insured Coverage Start Date Coverage End Date [facility] [address] [place], [place] [id number] [phone] [id number] Huber Galvin Self - patient is the insured Medical (General) History Medical History History ICD Code Hypertension Back pain Anxiety disorder Left sciatic pain Surgical History Surgery Date(Month/Year) Left foot nerve decompression 2nd and 3r d IM spaces 05/08/2019
[2024-05-08 16:57] LABS: Albumin Level 3.9 g/dL (3.5-5.0); Anion Gap 10 (12-20); Carbon Dioxide 29 mmol/L (22-29); Chloride 102 mmol/L (96-108); Cholesterol 190 mg/dL (<200); Glucose Fasting 105 mg/dL (60-99); Potassium 4.7 mmol/L (3.3-5.1); Sodium 137 mmol/L (135-145); Total Protein 7.4 g/dL (6.5-8.0)
[2024-05-08 17:00] LABS: Alanine Aminotransferase 30 U/L (0-40); Alkaline Phosphatase 117 U/L (39-117); Aspartate Amino Transferase 32 U/L (5-37); Bilirubin Total 0.5 mg/dL (0.0-1.0); Blood Urea Nitrogen 18 mg/dL (9-16); Calcium 9.1 mg/dL (8.4-10.2); Estimated Glomerular Filt Rate > 60; HDL Cholesterol 75 mg/dL (>40); LDL Cholesterol Calculated 103 mg/dL (<100); Triglycerides 64 mg/dL (<150)
[2024-05-08 17:06] LABS: Ferritin 48 ng/mL (20-250); Lactate Dehydrogenase 195 U/L (118-273); TSH reflex Free T4 1.12 uIU/mL (0.32-4.0)
[2024-05-08 17:07] LABS: Folate 14.8 ng/mL (> or = 4.0); Vitamin B12 664 pg/mL (200-900)
[2024-05-13 13:48] LABS: Hematocrit 42.2 % (38.5-50.0); Hemoglobin 13.9 g/dL (13.2-17.1); MCH 30.8 pg (27.0-33.0); MCV 93.6 fL (80.0-100.0); RBC 4.51 Million/uL (4.20-5.80); RDW 12.4 % (11.0-15.0)
== END 2024-05-08 13:40 | disposition home or self-care (01) ==
LOC: HO.HMGCLDS 13:39
PROVIDERS: PCP Nurse Practitioner Family; Visit Provider Nurse Practitioner Family
DX: D64.9 Anemia, unspecified (principal)
CPT/HCPCS: 36415; 80053; 80061; 81003; 82607; 82728; 82746; 83020; 83615; 84443; 85014; 85018; 85025; 85041

== ENCOUNTER 2024-05-15 10:33 | Outpatient (AMB) | payer MEDICARE, SELFPAY ==
--- NOTE | 2024-05-15 10:36 | MHC.PC.OV ---
Vital Signs 05/15/24 10:37 Height 5 ft 9 in Weight 136 lb BMI 20.1 BP 136/70 Blood Pressure Location Lt brachial Position Sitting Pulse 60 Pulse Source Pulse Oximeter Temp 97.9 F Temp Source Oral Pulse Oximetry (%) 97 Intake Visit Reasons: ANNUAL PE Intake Note: pt is here for annual exam Calculating Machine Operator Required: No Accompanied by: Self / Same As Patient Allergies No Known Allergies [No Known Allergies*] Allergy (Verified 05/15/24 10:37) Medication List - Last Reconciled 05/15/24 by GWENDOLYN Kang- amitriptyline 25 mg PO BEDTIME 90 days cholecalciferol (vitamin D3) 50 mcg PO DAILY finasteride 5 mg PO DAILY melatonin 8 mg PO .HS multivitamin (Daily Multi-Vitamin tablet) 1 tab PO DAILY pregabalin 200 mg PO BID 30 days testosterone 50 mg transdermal DAILY Tobacco use date assessed: 03/27/24 Fall risk assessment: No Falls in past year Last assessed Fall Risk: 05/15/24 Dental Screening Dental Screen Date: 03/27/24 HPI ANNUAL PE HPI Details History of Present Illness The patient is a 69-year-old male presenting with Complex Regional Pain Syndrome (CRPS) involving the left foot, specifically the anterior/dorsal areas. The condition has been a longstanding issue, for which he is currently medicated with Pregabalin and Amitriptyline, with plans to adjust the latter. Additionally, he experiences mild aortic stenosis and regurgitation with maintained systolic function and denies any symptoms of cardiovascular compromise. He participates in a lower dose CT scan program and adheres to scheduled colon screenings. His past oncological concern includes testicular cancer, with regular follow-up care with a urologist. Health Maintenance - Participation in the lower dose CT scan program for smokers. - Due for a colon cancer screening in the fall. - Referral to cardiology for cardiovascular management. Social History - Tobacco use: Active smoker. - Continues regular follow-up with urology due to history of testicular cancer. Review of Systems - Cardiovascular: Denies chest pain, shortness of breath. - Gastrointestinal: Denies nausea, vomiting, blood in stool, constipation, diarrhea. -denies any urinary issues Physical Exam General: Cooperative, healthy appearing, comfortable, no acute distress and well developed Orientation: Patient oriented x3 Limitations: No limitations Head: Normal to inspection Ears: Hearing grossly normal bilaterally Nose: Normal external nose present Face and sinus: Normal facial exam Eyes: Appearance normal, both eyes and all related structures Neck: Normal visual inspection and Yes full ROM Respiratory: Normal respiratory effort and able to speak in complete sentences. Clear to auscultation bilaterally/slight dim Cardiovascular: Regular rate and rhythm. Faint systolic murmur present. GI: Normal to inspection. Soft to palpation and nontender Skin: No rashes or lesions noted Neuro: Patient oriented x3 Extremities: Normal to inspection, except for history of complex regional pain syndrome in the left lower extremity, mainly the anterior aspect, dorsal anterior aspect of the left foot. Results - Echocardiogram: Mild aortic stenosis, mild aortic regurgitation, ejection fraction 50-55%. Plan I intend to increase the patient's Amitriptyline to 50 mg for better control of his complex regional pain syndrome, with a focus on optimizing patient comfort. Magnet Placer referral has been arranged due to mild aortic murmurs; attention will continue on cardiovascular health. Engagement in preventative measures like lower dose CT scans is imperative due to his smoking habits. A pending colon screening has been ordered, ensuring compliance and routine surveillance. His urologic history necessitates ongoing evaluation. Discussion Notes During the consultation, I discussed the plan to adjust the patient's current medication regimen for Complex Regional Pain Syndrome by increasing his Amitriptyline dosage. The implications of mild aortic stenosis and regurgitation were reviewed, emphasizing the importance of cardiology follow-up and monitoring. Counseling included discussions surrounding adherence to smoking cessation and continuity in health maintenance programs, like the lower-dose CT scan initiative and the colon screening. The patient demonstrated understanding and verbalized agreement with the proposed diagnostic and treatment directions. Patient Instructions - Take Amitriptyline as prescribed, increase to 50 mg at bedtime. - Attend the cardiology consultation as scheduled. - Continue lower dose CT scan monitoring. - Follow through with the colon screening referral. - Maintain follow-up with the urologist. - Strongly advised to cease tobacco use. [facility] Medical History Nicotine dependence, cigarettes, uncomplicated BPH (benign prostatic hyperplasia) Aortic regurgitation Aortic stenosis Anterolisthesis of cervical spine COVID-19 vaccine series completed History of testicular cancer CRPS (complex regional pain syndrome), lower limb Neuritis of foot Left-sided low back pain with sciatica Anxiety disorder Back pain Surgical History History of esophagogastroduodenoscopy (EGD) (~2019) History of colonoscopy (~2019) History of orchiectomy Social History Housing: House Are you a primary residential caregiver to a significant other at home: No Do you presently have visiting nurse or other home services: No Patient Tobacco Use Status: Current everyday Tobacco user Tobacco use type: Cigarette Cigarettes Per Day: 5 Years Smoked: 52 e-Cigarette/Vaping Use: Currently Using Second Hand Smoke Exposure: No service: No Current occupational status: retired and disabled Cognitive needs: No Hearing needs: No Vision needs: No Questionnaire PHQ-9 Over the last 2 weeks, how often have you been bothered by any of the following problems? 47684 - PHQ-9 Billing: Patient declined-do not bill Source: Developed by Drs. Sarwat Lim, Adelia Sandhu, Dionicio Sunshine and colleagues, with an educational delmar from [employer] ([employer]). Thrive Questionnaire Date Thrive assessed: 03/27/24 I am a: Patient What is your living situation today?: I have a steady place to live Within the past 12 months, did the food you bought not last and you didn't have the money to get more?: Never true Within the past 12 months, did you worry whether your food would run out before you got money to buy more?: Never true Do you have trouble paying for medicines?: No Do you have trouble getting transportation to medical appointments?: No Do you have trouble paying your heating and electricity bill?: No Do you have trouble taking care of your child, family member or friend?: No Do you have trouble with day-to-day activities such as bathing, preparing meals, shopping, managing finances, etc.?: No Are you currently unemployed and looking for a job?: No Are you interested in more education?: No Please select the resources that you would like help with: None Currently or been in a relationship where the following occur: No concerns reported THRIVE Score: 0 MEERA-7 AMB Questionnaire MEERA-7 Date MEERA - 7 assessed: 03/27/24 Source: Developed by Catarino Leeet B.W. Edson, Dionicio Sunshine and colleagues, with an educational delmar from [employer] ([employer]). Physical exam (Primary Care) Vital Signs: Last Vital Signs Temp 97.9 F 05/15/24 10:37 Pulse 60 05/15/24 10:37 BP 136/70 05/15/24 10:37 Pulse Ox 97 05/15/24 10:37 BMI result Body Mass Index 20.1 Tobacco/Smoking Status: Tobacco use Status Tobacco use date assessed 03/27/24 05/15/24 10:39 Patient Tobacco Use Status Current everyday Tobacco 05/15/24 10:39 Tobacco use type Cigarette 05/15/24 10:39 e-Cigarette/Vaping Use Currently Using 05/15/24 10:39 Thrive Assessment: Date of Thrive Assessment Date Thrive assessed 03/27/24 05/15/24 10:39 Currently or been in a relationship where the following occur: No concerns reported Coding Level of Care Code Est Pt Prev Care >65y(52598) Diagnoses Screening for colon cancer Z12.11 Physical exam Z00.00 Assessment & Plan Assessment & Plan (1) Screening for colon cancer: Code(s): Z12.11 - Encounter for screening for malignant neoplasm of colon Category: Medical (2) Physical exam: Code(s): Z00.00 - Encounter for general adult medical examination without abnormal findings Category: Medical Plan . Orders: Referrals Gastroenterology Referral Z12.11 - Encounter for screening for malignant neoplasm of colon Medications: Changed From amitriptyline 25 mg PO BEDTIME 90 days 90 tabs 1RF To amitriptyline 50 mg PO BEDTIME 90 days 90 tabs 1RF
[2024-05-15 10:37] VITALS: BP 136/70; PULSE 60; TEMP 36.6; O2SAT 97; BMI 20.1
--- OUTSIDE RECORDS SUMMARY | 2024-05-15 12:29 | XMS_ITS | Clinical Summary ---
Author Organization [facility] it Address [address] [place] [address] Care Team Providers Care Freezer Laboratory Technician Name Role Phone Unavailable Primary Care Provider [...]
--- OUTSIDE RECORDS SUMMARY | 2024-05-15 12:29 | XMS_ITS | Patient Health Record ---
Author Organization [facility] Address [address] [place] [address] Care Team Providers Care Tube Backer Name Role Phone Rafael Burch Primary Care Provider Sola Falcon MD MSc, Adelia Unavailable [phone] Allergies No Known Allergies Reason For Referral [...] Status Risk Notes Problem Plantar nerve lesion (376660445) Lesion of plantar nerve, unspecified lower limb (G57.60) Active confirmed Problem Plantar nerve lesion (350503647) Lesion of plantar nerve, left lower limb (G57.62) Active confirmed Problem Lesion of left plantar nerve (84326155808 9104) Lesion of left plantar nerve (G57.62) Active confirmed Problem Lesion of right plantar nerve (39350723537 9108) Lesion of right plantar nerve (G57.61) Active confirmed Plan Of Treatment Pending Test Test Name Order Date xray: left foot, AP/Lateral, weight bear ing 06/04/2020 xray: right foot, AP/Lateral, weight effie ring 06/04/2020 Insurance Providers Payer Name Payer Address Payer Phone Subscriber Number Group Number Insured Name Patient Relationship to Insured Coverage Start Date Coverage End Date [facility] [address] [place], [place] [id number] Huber Galvin Self - patient is the insured Medical (General) History Medical History History ICD Code Hypertension Back pain Anxiety disorder Left sciatic pain Surgical History Surgery Date(Month/Year) Left foot nerve decompression 2nd and 3r d IM spaces 05/08/2019
== END 2024-05-15 11:36 | disposition home or self-care (01) ==
PROVIDERS: PCP Nurse Practitioner Family; Visit Provider Nurse Practitioner Family
DX: Z12.11 Encounter for screening for malignant neoplasm of colon (principal); Z00.00 Encounter for general adult medical examination without abnormal findings

== ENCOUNTER → 2024-05-15 10:33 | Outpatient (BNVA) | payer MEDICARE, SELFPAY | PROVIDERS: PCP Nurse Practitioner Family; Visit Provider Nurse Practitioner Family | DX: Z00.00 Encounter for general adult medical examination without abnormal findings (principal); F17.200 Nicotine dependence, unspecified, uncomplicated; Z71.6 Tobacco abuse counseling | CPT/HCPCS: 99397 ==

== ENCOUNTER → 2024-06-17 14:44 | Outpatient (BNV) | payer MEDICARE, SELFPAY | PROVIDERS: PCP Nurse Practitioner Family; Referring Provider Nurse Practitioner Family; Visit Provider Internal Medicine Medical Oncology | DX: D64.9 Anemia, unspecified (principal) | CPT/HCPCS: 99204 ==

== ENCOUNTER 2024-07-23 07:42 | Outpatient (REF) | payer MEDICARE, SELFPAY ==
--- NOTE | ~2024-07-23 | CT_ITS ---
CLINICAL HISTORY: F17.210 - Nicotine dependence, cigarettes, uncomplicated CT lung cancer screening (LDCT) Comparison: CT/ID/SR - CT LUNG SCREENING - 06/28/23 10:47 EDT Technique: Axial CT images of the chest using low-dose technique. Referring provider counseled the patient on shared decision-making for LDCT screening. Additional counseling was provided on smoking cessation. Effective radiation dose total: DLP 34.7 mGycm, CTDIvol 1 mGy. Findings: No pulmonary nodules are noted. There is mild coronary artery disease. Limited upper abdomen: Unremarkable Other: None Impression: LungRADS 1: Negative exam. Continue annual screening with low dose Chest CT in 12 months. ##L1# Category 1: Normal; continue annual screening Category 2: Benign appearance or behavior, continue annual screening Category 3: Probably benign, [address] recommended Category 4A: Suspicious, [address] recommended; may consider PET/CT Category 4B: Suspicious, Additional diagnostics and/or tissue sampling recommended Category 4X: Suspicious, Additional diagnostics and/or tissue sampling recommended Category 0: Recalls (incomplete screen due to Incomplete coverage, Noise, Respiratory motion, Expiration, Obscured by acute abnormality) This document has been electronically signed by: Gabriel Ramos MD on 07/23/2024 12:03:36
--- OUTSIDE RECORDS SUMMARY | 2024-07-23 07:44 | XMS_ITS | Clinical Summary ---
Author Organization [address] [facility] Address [address] [place] [address] Phone Care Team Providers Care Shingle Trimmer Name Role Phone Jayant Singh NP Primary Care Provider Encounters Date Type Department Care Team Description 05/22/2024 Lab Requisition [facility] - Main Lab [address] [facility] [place] [address] Mookie Bella MD Testicular hypofunction; Benign prostatic hyperplasia with lower urinary tract symptoms from Last 3 Months Social History Tobacco Use Types Packs/Day Years [...] - 2023-2 5 season) 2023 Influenza Vaccine (Season Ended) 2024 RSV Immunization Adult Patie nts (1 - 1-dose 75+ series) 2029 HIB [...] age to complete this topic Meningococcal B Vaccine Aged Out No l onger eligible based on patient's age to complete this topic RSV Immunization Patients Un ayla 20 months Aged Out No longer eligible b ased on patient's age to complete this topic Varicella Vaccines Aged Out No longer eligible based on patient's age to complete this topic Procedures Procedure Name Priority Date/Time Associated Diagnosis Comments PROSTATE SPECIFIC ANTIGEN DIAGNOSTIC Routine 05/22/2024 9:12 AM EDT Testicular hypofunction Benign prostatic hyperplasia with lower urinary tract symptoms HEMOGLOBIN AND HEMATOCRIT Routine 05/22/2024 9:12 AM EDT Testicular hypofunction Benign prostatic hyperplasia with lower urinary tract symptoms HEPATIC FUNCTION PANEL Routine 05/22/2024 9:12 AM EDT Testicular hypofunction Benign prostatic hyperplasia with lower urinary tract symptoms TESTOSTERONE, TOTAL Routine 05/22/2024 9 :12 AM EDT Testicular hypofunction Benign prostatic hyperplasia with lower urinary tract symptoms from Last 3 Months Results * Prostate specific antigen diagnostic (05/22/2024 9:12 AM EDT) PSA 0.11 0.00 - 4.00 ng/mL LAB CHEMISTRY METHOD 05/22/2024 2:48 PM EDT [facility] Blood Venous blood specimen / Unknown 05/22/2024 9:12 AM EDT 05/22/2024 12:26 PM EDT Narrative [facility] - 05/22/2024 2:48 PM EDT The Siemens Advia Order Mapperaur Chemiluminescent Immunoassay is used. Results obtained with different assay methods or kits cannot be used interchangeably. Results cannot be interpreted as absolute evidence of the presence or absence of malignant disease. us Mookie Bella MD LAB BLOOD ORDERABLES Final Resul t [facility] [address] [place] [address], [place] [phone] * Hemoglobin and hematocrit (05/22/2024 9:12 AM EDT) Hemoglobin 14.1 13.5 - 17.5 g/dL LAB HEMETOLOGY METHOD 05/22/2024 1:02 PM EDT [facility] Hematocrit 43.0 42.0 - 54.0 % LAB HEMETOLOGY METHOD 05/22/2024 1:02 PM EDT [facility] Blood Venous blood specimen / Unknown 05/22/2024 9:12 AM EDT 05/22/2024 12:26 PM EDT Mookie Bella MD LAB BLOOD ORDERABLES Final Resul t Performing Organization Address City/[facility]/ZIP Co de Phone Number [facility] [address] [place] [address], [place] [phone] * Testosterone, total (05/22/2024 9:12 AM EDT) Testosterone 832 229 - 902 ng/dL LAB CHEMISTRY METHOD 05/22/2024 5:08 PM EDT [facility] Blood Venous blood specimen / Unknown 05/22/2024 9:12 AM EDT 05/22/2024 12:26 PM EDT us Mookie Bella MD LAB BLOOD ORDERABLES Final Resul t Performing Organization Address City/[facility]/ZIP Co de Phone Number [facility] [address] [place] [address], [place] [phone] * (ABNORMAL) Hepatic function panel (05/22/2024 9:12 AM EDT) Total Protein 6.9 6.0 - 8.0 g/dL LAB CHEMISTRY METHOD 05/22/2024 3:18 PM EDT [facility] Albumin 3.8 3.2 - 5.0 g/dL LAB CHEMISTRY METHOD 05/22/2024 3:18 PM EDT [facility] Total Bilirubin 0.6 0.0 - 1.4 mg/dL LAB CHEMISTRY METHOD 05/22/2024 3:18 PM EDT [facility] Bilirubin, Direct 0.2 0.0 - 0.3 mg/dL LAB CHEMISTRY METHOD 05/22/2024 3:18 PM EDT [facility] Bilirubin, Indirect 0.4 0.0 - 1.1 mg/dL LAB CHEMISTRY METHOD 05/22/2024 3:18 PM [facility] ALT (SGPT) 30 10 - 60 unit/L LAB CHEMISTRY METHOD 05/22/2024 3:18 PM T [facility] AST (SGOT) 28 10 - 42 unit/L LAB CHEMISTRY METHOD 05/22/2024 3:18 PM EDT [facility] Alkaline Phosphatase 132(H) 42 - 121 unit/L LAB CHEMISTRY METHOD 05/22/2024 3:18 PM [facility] Blood Venous blood specimen / Unknown 05/22/2024 9:12 AM EDT 05/22/2024 12:26 PM EDT us Mookie Bella MD LAB BLOOD ORDERABLES Final Resul t [facility] [address] [place] [address], from Last [address] [facility] Care Teams Shingle Trimmer Relationship Specialty Start Date End Date Jayant Singh NP [address] [place], [place] PCP - General Family Medicine 05/22/24
--- OUTSIDE RECORDS SUMMARY | 2024-07-23 07:44 | XMS_ITS | Patient Health Record ---
Author Organization [facility] Address [address] [place] [address] Care Team Providers Care Drawing Checker Name Role Phone Rafael Burch Primary Care Provider Unavailab benito Joy MD MSc, [facility] Unavailable [phone] Allergies No Known Allergies Reason For Referral [...] Status Risk Notes Problem Plantar nerve lesion ([id number]) Lesion of plantar nerve, unspecified lower limb (G57.60) Active confirmed Problem Plantar nerve lesion (094415588) Lesion of plantar nerve, left lower limb (G57.62) Active confirmed Problem Lesion of left plantar nerve (93734502787 9104) Lesion of left plantar nerve (G57.62) Active confirmed Problem Lesion of right plantar nerve ([id number] 9108) Lesion of right plantar nerve (G57.61) Active confirmed Plan Of Treatment Pending Test Test Name Order Date xray: left foot, AP/Lateral, weight bear ing 06/04/2020 xray: right foot, AP/Lateral, weight effie ring 06/04/2020 Insurance Providers Payer Name Payer Address Payer Phone Subscriber Number Group Number Insured Name Patient Relationship to Insured Coverage Start Date Coverage End Date [facility] [address] [place], [place] [id number] [phone] [id number] Huber Galvin Self - patient is the insured Medical (General) History Medical History History ICD Code Hypertension Back pain Anxiety disorder Left sciatic pain Surgical History Surgery Date(Month/Year) Left foot nerve decompression 2nd and 3r d IM spaces 05/08/2019
--- OUTSIDE RECORDS SUMMARY | 2024-07-23 07:44 | XMS_ITS | Encounter Summary ---
Author Organization [facility] Address [address] [place] [address] Care Team Providers Care Senior Advisor Name Role Phone Jayant Singh NP Primary Care Provider Encounter Details Date Type Department Care Team (Late st Contact Info) Description 05/22/2024 Lab Requisition [facility] - Main Lab [address] [facility] [place] [address] Mookie Bella MD [address] [facility] [address] [place] [address] Testicular hypofunction; Benign prostatic hyperplasia with lower urinary tract symptoms Social History Tobacco Use Types Packs/Day Years Used Date Smoking Tobacco: Never Assessed Sex and Gender Information Value Date Recorded Sex Assigned at Not on file Legal Sex Male 8:37 AM EST Gender Identity Not on file Sexual Orientation Not on file documented as of this encounter Plan of Treatment Not on file documented as of this encounter Procedures Procedure Name Priority Date/Time Associated Diagnosis [...] prostatic hyperplasia with lower urinary tract symptoms documented in this encounter Results * Prostate specific antigen diagnostic (05/22/2024 9:12 AM EDT) PSA 0.11 0.00 - 4.00 ng/mL LAB CHEMISTRY METHOD 05/22/2024 2:48 PM EDT [facility] Blood Venous blood specimen / Unknown 05/22/2024 9:12 AM EDT 05/22/2024 12:26 PM EDT Narrative [facility] - 05/22/2024 2:48 PM EDT The Siemens Advia Centaur Chemiluminescent Immunoassay is used. Results obtained with different assay methods or kits cannot be used interchangeably. Results cannot be interpreted as absolute evidence of the presence or absence of malignant disease. us Mookie Bella MD LAB BLOOD ORDERABLES Final Resul t Performing Organization Address City/[facility]/ZIP Co de Phone Number [facility] [address] [place] [address], * Hemoglobin and hematocrit (05/22/2024 9:12 AM EDT) Pathologist [facility] Hemoglobin 14.1 13.5 - 17.5 g/dL LAB HEMETOLOGY METHOD 05/22/2024 1:02 PM EDT [facility] Hematocrit 43.0 42.0 - 54.0 % LAB HEMETOLOGY METHOD 05/22/2024 1:02 PM EDT [facility] Blood Venous blood specimen / Unknown 05/22/2024 9:12 AM EDT 05/22/2024 12:26 PM EDT us Mookie Bella MD LAB BLOOD ORDERABLES Final Resul t [facility] [address] [place] [address], [place] [phone] * (ABNORMAL) Hepatic function panel (05/22/2024 9:12 AM EDT) Total Protein 6.9 6.0 - 8.0 g/dL LAB CHEMISTRY METHOD 05/22/2024 3:18 PM EDT [facility] Albumin 3.8 3.2 - 5.0 g/dL LAB CHEMISTRY METHOD 05/22/2024 3:18 PM EDT [facility] Total Bilirubin 0.6 0.0 - 1.4 mg/dL LAB CHEMISTRY METHOD 05/22/2024 3:18 PM EDT [facility] Bilirubin, Direct 0.2 0.0 - 0.3 mg/dL LAB CHEMISTRY METHOD 05/22/2024 3:18 PM EDT [facility] Bilirubin, Indirect 0.4 0.0 - 1.1 mg/dL LAB CHEMISTRY METHOD 05/22/2024 3:18 PM T [facility] ALT (SGPT) 30 10 - 60 unit/L LAB CHEMISTRY METHOD 05/22/2024 3:18 PM T [facility] AST (SGOT) 28 10 - 42 unit/L LAB CHEMISTRY METHOD 05/22/2024 3:18 PM T [facility] Alkaline Phosphatase 132(H) 42 - 121 unit/L LAB CHEMISTRY METHOD 05/22/2024 3:18 PM T [facility] Blood Venous blood specimen / Unknown 05/22/2024 9:12 AM EDT 05/22/2024 12:26 PM EDT Mookie Bella MD LAB BLOOD ORDERABLES Final Resul t [facility] [address] [place] [address], * Testosterone, total (05/22/2024 9:12 AM EDT) Testosterone 832 229 - 902 ng/dL LAB CHEMISTRY METHOD 05/22/2024 5:08 PM EDT [facility] Blood Venous blood specimen / Unknown 05/22/2024 9:12 AM EDT 05/22/2024 12:26 PM EDT Mookie Bella MD LAB BLOOD ORDERABLES Final Resul t [facility] [address] [place] [address], documented in this encounter Visit Diagnoses Diagnosis Testicular hypofunction Other testicular hypofunction Benign prostatic hyperplasia with lower urinary tract symptoms documented in this encounter Care Teams Senior Advisor Relationship Specialty Start Date End Date Jayant Singh NP [address] [place], [place] PCP - General Family Medicine 05/22/24 documented as of this encounter
== END 2024-07-23 07:43 | disposition home or self-care (01) ==
LOC: HO.CT 07:42
PROVIDERS: PCP Nurse Practitioner Family; Visit Provider Physician Assistant Medical
DX: Z12.2 Encounter for screening for malignant neoplasm of respiratory organs (principal); F17.210 Nicotine dependence, cigarettes, uncomplicated
CPT/HCPCS: 71271

== ENCOUNTER → 2024-07-23 07:43 | Outpatient (BNV) | payer MEDICARE, SELFPAY | PROVIDERS: PCP Nurse Practitioner Family; Visit Provider Radiology Diagnostic Radiology | DX: F17.210 Nicotine dependence, cigarettes, uncomplicated (principal) | CPT/HCPCS: 71271 ==

== ENCOUNTER 2024-09-10 13:07 | Outpatient (AMB) | payer MEDICARE, SELFPAY ==
--- NOTE | 2024-09-10 13:10 | MHC.OFFVIS ---
Vital Signs 09/10/24 13:13 Height 5 ft 9 in Weight 132 lb 4.438 oz BMI 19.5 BP 138/68 Blood Pressure Location Lt brachial Position Sitting Pulse 70 Pulse Source Monitor Intake Visit Reasons: ONCOLOGY COORDINATOR/Glogowski/Nonrheumatic aortic (valve) stenosis Allergies No Known Allergies (No Known Allergies*) Allergy (Verified 06/17/24 14:59) HPI Comments Details: Thank you for referring Tae in cardiology consultation today for noted abnormality on the echocardiogram with mild aortic stenosis and regurgitation. Patient is a 69-year-old male with prior history of mostly musculoskeletal and neurologic issues. He has never had any prior cardiac history. He does smoke about 5 cigarettes a day. He said he exercises rides his bike for 45 minutes almost every day and has no cardiac symptoms. Denies any exertional chest pain or shortness of breath. Recently underwent an echocardiogram which showed low normal LV ejection fraction 50-55% without any significant regional wall motion abnormality with mild aortic stenosis and regurgitation. He was referred here for further evaluation. Denies any prolonged palpitation irregular heartbeat. Denies any lightheadedness, syncope. No orthopnea, PND, leg edema. [facility] Medical History Leukopenia Nicotine dependence, cigarettes, uncomplicated BPH (benign prostatic hyperplasia) Aortic regurgitation Aortic stenosis Anterolisthesis of cervical spine COVID-19 vaccine series completed History of testicular cancer CRPS (complex regional pain syndrome), lower limb Neuritis of foot Left-sided low back pain with sciatica Anxiety disorder Back pain Surgical History History of esophagogastroduodenoscopy (EGD) (~2019) History of colonoscopy (~2019) History of orchiectomy Social History Household Members: None Housing: House Are you a primary associate director career services to a significant other at home: No Do you presently have visiting nurse or other home services: No Alcohol intake: current Alcohol intake frequency: a few times a month Patient Tobacco Use Status: Current everyday Tobacco user Tobacco use type: Cigarette Years Smoked: 52 e-Cigarette/Vaping Use: Currently Using Second Hand Smoke Exposure: No service: No Current occupational status: retired and disabled Cognitive needs: No Hearing needs: No Vision needs: No Review of Systems Const Reports no additional complaints and Denies weakness Eyes Reports no additional complaints ENT Reports no additional complaints and Denies dizziness Card Denies chest pain, Denies chest pain with activity, Denies syncope, Denies rapid heart rate, Denies pedal edema, Denies edema, Denies leg edema, Denies lightheadedness, Denies palpitations, Denies dyspnea, Denies dyspnea on exertion and Denies orthopnea Resp Denies cough, Denies dyspnea and Denies dyspnea on exertion GI Denies hematochezia and Denies change in stool character Musc Denies abnormal gait, Denies muscle cramps, Denies muscle weakness, Denies numbness, Denies radiating pain into limb and Denies tingling Neuro Denies abnormal gait, Denies dizziness, Denies syncope, Denies numbness, Denies tingling and Denies weakness Endo Denies palpitations Physical Exam Vital Signs: Last Vital Signs Pulse 70 09/10/24 13:13 BP 138/68 09/10/24 13:13 BMI result Body Mass Index 19.5 Const General: cooperative, comfortable, no acute distress, alert and awake Nutritional Appearance: thin Orientation/consciousness: patient oriented x3 Limitations: no limitations HEENT Head: Yes normocephalic and Yes atraumatic Neck Neck: Yes trachea midline, Yes supple and Yes no JVD Resp Effort & Inspection: normal respiratory effort Auscultation: clear to auscultation bilaterally Cardio Jugular venous distension: no JVD Rate: regular rate Rhythm: abnormal rhythm with ectopic beats Heart sounds: S1 normal heart sound present, S2 normal heart sound present, no click, no gallops and Murmur heart sound present systolic early, decrescendo, crescendo and at the left sternal border GI Auscultation: normal bowel sounds Skin General skin exam: no rashes or lesions noted Neuro General: patient oriented x3 and no focal motor deficits Extrem General: Yes no clubbing, cyanosis or edema Psych Appearance: grossly normal Office Procedures EKG Details: EKG shows normal sinus rhythm with PVC with ST-depression in inferior leads which could represent ischemia with nonspecific ST-T changes in the lateral lead incomplete right bundle-branch block 32942-[id number], Complete Assessment & Plan Assessment & Plan (1) Abnormal EKG: Code(s): R94.31 - Abnormal electrocardiogram [ECG] [EKG] Category: Medical Plan: Abnormal EKG in this elderly gentleman with risk factors of smoking and mild hyperlipidemia. Clinically has no symptoms at good workload although given his abnormal EKG in need to rule out silent myocardial ischemia. Would suggest exercise myocardial perfusion imaging given his baseline EKG. This was discussed with him. Understands agrees. Further treatment based on the findings. (2) Aortic stenosis: Code(s): I35.0 - Nonrheumatic aortic (valve) stenosis Category: Medical Plan: Mild aortic stenosis with minimally increased gradient with mild aortic regurgitation related to calcific valve disease. This is clinically not significant at this point time. However can gradually progressive over time. This was discussed with him. Will need another repeat echocardiogram 2 years time. I will follow him annually for clinical checks. I would recommend low-dose aspirin therapy and also suggest statin therapy to target goal LDL less than 70 mg/dL which can be pursued through your office. Will follow up in the clinic in 1 year's time, sooner p.r.n.. Thank you for allowing me to partake in his care Coding Level of Care Code New Pt Level 4 (45188) Complex EM visit Add On G2211 Diagnoses Abnormal EKG R94.31 Aortic stenosis I35.0 CPT Codes EKG - CPT: 18488-[id number], Complete ([id number])
[2024-09-10 13:13] VITALS: BP 138/68; PULSE 70; BMI 19.5
--- OUTSIDE RECORDS SUMMARY | 2024-09-10 14:09 | XMS_ITS | Encounter Summary ---
Author Organization [facility] Address [address] [place] [address] Care Team Providers Care Skid Worker Name Role Phone Jayant Singh NP Primary Care Provider Encounter Details Date Type Department Care Team (Late st Contact Info) Description 05/22/2024 Lab Requisition [facility] - Main Lab [address] [facility] [place] [address] Mookie Bella MD [address] [facility] [address] [place] [address] Testicular hypofunction; Benign prostatic hyperplasia [...] LAB CHEMISTRY METHOD 05/22/2024 2:48 PM EDT [facility] Blood Venous blood specimen / Unknown 05/22/2024 9:12 AM EDT 05/22/2024 12:26 PM EDT Narrative [facility] - 05/22/2024 2:48 PM EDT The Siemens Advia Centaur Chemiluminescent Immunoassay is used. Results obtained with different assay methods or kits cannot be used interchangeably. Results cannot be interpreted as absolute evidence of the presence or absence of malignant disease. us Mookie Bella MD LAB BLOOD ORDERABLES Final Resul t Performing Organization Address City/[facility]/ZIP Co de Phone Number [facility] [address] [place] [address], * Hemoglobin and hematocrit (05/22/2024 9:12 AM EDT) Pathologist [facility] Hemoglobin 14.1 13.5 - 17.5 g/dL LAB HEMETOLOGY METHOD 05/22/2024 1:02 PM EDT [facility] Hematocrit 43.0 42.0 - 54.0 % LAB HEMETOLOGY METHOD 05/22/2024 1:02 PM EDT [facility] Blood Venous blood specimen / Unknown 05/22/2024 9:12 AM EDT 05/22/2024 12:26 PM EDT us Mookie Bella MD LAB BLOOD ORDERABLES Final Resul t [facility] [address] [place] [address], [place] [phone] * (ABNORMAL) Hepatic function panel (05/22/2024 9:12 AM EDT) Total Protein 6.9 6.0 - 8.0 g/dL LAB CHEMISTRY METHOD 05/22/2024 3:18 PM EDT [facility] Albumin 3.8 3.2 - 5.0 g/dL LAB CHEMISTRY METHOD 05/22/2024 3:18 PM EDT [facility] Total Bilirubin 0.6 0.0 - 1.4 mg/dL LAB CHEMISTRY METHOD 05/22/2024 3:18 PM EDT [facility] Bilirubin, Direct 0.2 0.0 - 0.3 mg/dL LAB CHEMISTRY METHOD 05/22/2024 3:18 PM EDT [facility] Bilirubin, Indirect 0.4 0.0 - 1.1 mg/dL LAB CHEMISTRY METHOD 05/22/2024 3:18 PM T [facility] ALT (SGPT) 30 10 - 60 unit/L LAB CHEMISTRY METHOD 05/22/2024 3:18 PM T [facility] AST (SGOT) 28 10 - 42 unit/L LAB CHEMISTRY METHOD 05/22/2024 3:18 PM T [facility] Alkaline Phosphatase 132(H) 42 - 121 unit/L LAB CHEMISTRY METHOD 05/22/2024 3:18 PM T [facility] Blood Venous blood specimen / Unknown 05/22/2024 9:12 AM EDT 05/22/2024 12:26 PM EDT Mookie Bella MD LAB BLOOD ORDERABLES Final Resul t [facility] [address] [place] [address], * Testosterone, total (05/22/2024 9:12 AM EDT) Testosterone 832 229 - 902 ng/dL LAB CHEMISTRY METHOD 05/22/2024 5:08 PM EDT [facility] Blood Venous blood specimen / Unknown 05/22/2024 9:12 AM EDT 05/22/2024 12:26 PM EDT Mookie Bella MD LAB BLOOD ORDERABLES Final Resul t [facility] ([facility]) [facility] [address] [place] [address], documented in this encounter Visit Diagnoses Diagnosis Testicular hypofunction Other testicular hypofunction Benign prostatic hyperplasia with lower urinary tract symptoms documented in this encounter Care Teams Skid Worker Relationship Specialty Start Date End Date Jayant Singh NP [address] [place], [place] PCP - General Family Medicine 05/22/24 documented as of this encounter
--- OUTSIDE RECORDS SUMMARY | 2024-09-10 14:09 | XMS_ITS | Patient Health Record ---
Author Organization [facility] Address [address] [place] [address] Care Team Providers Care Cashier Wrapper Name Role Phone Rafael Burch Primary Care Provider Unavailab benito Joy MD MSc, [facility] Unavailable [phone] Allergies No Known Allergies Reason For Referral [...] Status Risk Notes Problem Plantar nerve lesion (115948653) Lesion of plantar nerve, unspecified lower limb (G57.60) Active confirmed Problem Plantar nerve lesion (652355790) Lesion of plantar nerve, left lower limb (G57.62) Active confirmed Problem Lesion of left plantar nerve ([id number] 9104) Lesion of left plantar nerve (G57.62) Active confirmed Problem Lesion of right plantar nerve ([id number] 9108) Lesion of right plantar nerve (G57.61) Active confirmed Plan Of Treatment Pending Test Test Name Order Date xray: left foot, AP/Lateral, weight bear ing 06/04/2020 xray: right foot, AP/Lateral, weight effie ring 06/04/2020 Insurance Providers Payer Name Payer Address Payer Phone Subscriber Number Group Number Insured Name Patient Relationship to Insured Coverage Start Date Coverage End Date [facility] [address] [place], [place] [id number] Huber Galvin Self - patient is the insured Medical (General) History Medical History History ICD Code Hypertension Back pain Anxiety disorder Left sciatic pain Surgical History Surgery Date(Month/Year) Left foot nerve decompression 2nd and 3r d IM spaces 05/08/2019
--- OUTSIDE RECORDS SUMMARY | 2024-09-10 14:09 | XMS_ITS | Patient Health Record ---
Author Organization [facility] Address [address] [place] [address] Care Team Providers Care Manager Surgical Name Role Phone Rafael Burch MD Primary Care Provider Amy Wheat Unavailable [phone] Allergies Allergen (clinical drug ingredient) Drug/Non Drug Allergy documented on EMR Reaction Allergy Type Onset Date Status bee stings (uncoded) Unknown Allergy Active Reason For Referral No Information Medications Medication SIG (Take, Route, Frequency, Duration) Notes Start Date End Date Status GaviLyte-N with Flavor Pack 420 GM Oral; Duration: 001 Not-Taki ng Androderm 4 MG/24HR (Schedule III Drug) Transdermal; Duration: 030 Active Vitamin B-12 1000 MCG 1 tablet Orally On ce a day Active Multivitamin Adults 50+ Orally Active Problems No Known Problems Plan Of Treatment No Information Insurance Providers Payer Name Payer Address Payer Phone Subscriber Number Group Number Insured Name Patient Relationship to Insured Coverage Start Date Coverage End Date [facility] [address] [facility] [place] [id number] [phone] [id number] Huber Galvin Self - patient is the insured Medical (General) History Medical History History ICD Code Anxiety Depression Sciatica Measles Mumps Chicken pox
== END 2024-09-10 13:37 | disposition home or self-care (01) ==
LOC: HO.HCS 13:07
PROVIDERS: PCP Nurse Practitioner Family; Visit Provider Internal Medicine Cardiovascular Disease
DX: R94.31 Abnormal electrocardiogram [ECG] [EKG] (principal); I35.0 Nonrheumatic aortic (valve) stenosis; I49.3 Ventricular premature depolarization
CPT/HCPCS: 93010; 99214; G2211

== ENCOUNTER → 2024-09-10 13:07 | Outpatient (BNVA) | payer MEDICARE, SELFPAY | PROVIDERS: PCP Nurse Practitioner Family; Visit Provider Internal Medicine Cardiovascular Disease | DX: R94.31 Abnormal electrocardiogram [ECG] [EKG] (principal); I35.0 Nonrheumatic aortic (valve) stenosis | CPT/HCPCS: 93005; 99212 ==

== ENCOUNTER 2024-10-02 10:13 | Outpatient (AMB) | payer MEDICARE, SELFPAY ==
--- NOTE | 2024-10-02 10:18 | MHC.OFFVIS ---
Vital Signs 10/02/24 10:19 Height 5 ft 9 in Weight 134 lb 14.766 oz BMI 19.9 BP 132/72 Blood Pressure Location Lt brachial Position Sitting Intake Visit Reasons: [place] screening Intake Note: New patient in office today for colonoscopy screening. CC: Allergies No Known Allergies (No Known Allergies*) Allergy (Verified 10/02/24 10:20) HPI HPI [place] screening: Details: 69-year-old male here for preprocedural meeting to discuss a screening colonoscopy. He is referred by Jayant Singh. PMX Smoker Aortic stenosis Cervical degenerative disc disease Complex regional pain syndrome of the lower limb Bilateral carpal tunnel syndrome High cholesterol BPH History of testicular cancer Anxiety disorder * SURGICAL HISTORY Orchiectomy Esophagogastroduodenoscopy-socorro mathews 2019 [place] Colonoscopy-Dr. Paulino butt 2019 [facility] * ALLERGIES: NKDA * Ready To Travel LABS: Laboratory Tests 09/17/24 09:34 WBC 4.3 L Hgb 13.4 L Hct 40.0 L MCV 91.7 MCH 30.7 Plt Count 201 Estimated GFR > 60 Ferritin 55 Total Bilirubin 0.5 AST 35 ALT 29 Alkaline Phosphatase 106 TODAY'S VISIT He says his last scope was with Dr. Aden and there were polyps. He denies any bowel or upper GI problems. He has an d a reduced EF of 55% on echo and is pending stress test with our cardiology dept. He will need cardiac clearance after his stress test prior to the procedure He denies any respiratory problems but is a smoker No ID problems. No anes or sed problems. He says he had polyps and his mother had polyps. [facility] Medical History Screening for colon cancer Leukopenia Nicotine dependence, cigarettes, uncomplicated BPH (benign prostatic hyperplasia) Aortic regurgitation Aortic stenosis Anterolisthesis of cervical spine COVID-19 vaccine series completed History of testicular cancer CRPS (complex regional pain syndrome), lower limb Neuritis of foot Left-sided low back pain with sciatica Anxiety disorder Back pain Surgical History History of esophagogastroduodenoscopy (EGD) (~2019) History of colonoscopy (~2019) History of orchiectomy Social History Household Members: None Housing: House Are you a primary personal care service provider to a significant other at home: No Do you presently have visiting nurse or other home services: No Alcohol intake: current Alcohol intake frequency: a few times a month Patient Tobacco Use Status: Current everyday Tobacco user Tobacco use type: Cigarette Years Smoked: 52 e-Cigarette/Vaping Use: Currently Using Second Hand Smoke Exposure: No service: No Current occupational status: retired and disabled Cognitive needs: No Hearing needs: No Vision needs: No Review of Systems Const Denies fatigue, Denies fever(s), Denies night sweats, Denies poor appetite and Denies weight loss Eyes Details: glasses Reports requires corrective lenses ENT Reports Normal hearing present, Denies dental pain, Denies dysphagia, Denies hearing loss, Denies mouth pain, Denies odynophagia, Denies throat swelling, Denies tongue swelling and Reports other (Dentition adequate) Card Reports no additional complaints Resp Reports no additional complaints GI Details: Denies abdominal pain, Denies melena, Denies bloating, Denies hematochezia, Denies constipation, Denies GI cramping, Denies dysphagia, Denies excessive flatus, Denies early satiety, Denies heartburn, Denies diarrhea, Denies nausea, Denies odynophagia, Denies vomiting and Denies hematemesis Skin/Breast Denies pruritus, Denies lesions, Denies rash and Denies jaundice Neuro Reports Normal hearing present and Denies Abnormal speech present Endo Denies fatigue Aller/Immun Denies throat swelling and Denies tongue swelling Physical Exam Vital Signs: Last Vital Signs BP 132/72 10/02/24 10:19 BMI result Body Mass Index 19.9 Const General: cooperative, no acute distress, well developed and well groomed Nutritional Appearance: average body habitus and well nourished Orientation/consciousness: oriented to person, oriented to place and oriented to time Limitations: No language barrier HEENT Head: Yes normocephalic and Yes atraumatic Eyes General: appearance normal, both eyes and all related structures Pupils: Equal, round and reactive pupils present Neck Neck: Yes normal visual inspection and Yes no lymphadenopathy Thyroid: Thyroid normal Resp Effort & Inspection: normal respiratory effort and able to speak in complete sentences Auscultation: clear to auscultation bilaterally Cardio Rate: regular rate Rhythm: abnormal rhythm with ectopic beats Heart sounds: Normal, physiologic split S2 sound present Peripheral pulses: radial pulses present and posterior tibial pulses present GI Inspection: No distended and No Abdominal panniculus present Palpation (GI): Soft to palpation, nontender, no guarding, not rigid and No hepatosplenomegaly present Percussion: Yes normal to percussion Auscultation: normal bowel sounds Rectal Exam - Male: Yes deferred Skin General skin exam: no rashes or lesions noted, turgor normal, skin not dry, no jaundice, No spider nevi and no striae Rashes: no rashes Nails: normal Neuro General: oriented to person, oriented to place and oriented to time Cranial nerves: Yes Equal, round and reactive pupils present and Yes Normal hearing present Speech: No Abnormal speech present Extrem General: Yes normal to inspection, No clubbing, No cyanosis and No edema Psych Appearance: grossly normal and well kempt Mental Status: mental status grossly normal Speech and movement: Normal speech and movement present Affect: normal affect Attitude: cooperative Thought process: Normal thought process present and not confabulating Thought content: Normal thought content present Insight: Good insight present (Psych) Judgement: Good judgement present (Psych) Assessment & Plan Assessment & Plan (1) Aortic stenosis: Code(s): I35.0 - Nonrheumatic aortic (valve) stenosis Category: Medical (2) Pre-op examination: Code(s): Z01.818 - Encounter for other preprocedural examination Category: Medical Plan He says his last scope was with Dr. Aden and there were polyps. He denies any bowel or upper GI problems. He has an d a reduced EF of 55% on echo and is pending stress test with our cardiology dept. He will need cardiac clearance after his stress test prior to the procedure He denies any respiratory problems but is a smoker No ID problems. No anes or sed problems. He says he had polyps and his mother had polyps. Orders: Orders Colonoscopy - GI Use Only Today Z01.818 - Encounter for other preprocedural examination Medications: New sodium,potassium,mag sulfates 17.5-3.13-1.6 gram (Suprep Bowel Prep Kit) 480 mL orally; FOR COLONOSCOPY PREP 354 mL 0RF Coding Level of Care Code New Pt Level 3 (75233) Diagnoses Aortic stenosis I35.0 Pre-op examination Z01.818
[2024-10-02 10:19] VITALS: BP 132/72; BMI 19.9
--- OUTSIDE RECORDS SUMMARY | 2024-10-02 11:11 | XMS_ITS | Encounter Summary ---
Author Organization [facility] Address [address] [place] [address] Care Team Providers Care Flat Knitter Helper Name Role Phone Jayant Singh NP Primary Care Provider Encounter Details Date Type Department Care Team (Late st Contact Info) Description 05/22/2024 Lab Requisition [facility] - Main Lab [address] [facility] [place] [address] Mookie Bella MD [address] [facility] [address] [place] [address] Testicular hypofunction; Benign prostatic hyperplasia [...] LAB CHEMISTRY METHOD 05/22/2024 2:48 PM EDT [facility] Blood Venous blood specimen / Unknown 05/22/2024 9:12 AM EDT 05/22/2024 12:26 PM EDT Narrative [facility] - 05/22/2024 2:48 PM EDT The Siemens Advia Centaur Chemiluminescent Immunoassay is used. Results obtained with different assay methods or kits cannot be used interchangeably. Results cannot be interpreted as absolute evidence of the presence or absence of malignant disease. us Mookie Bella MD LAB BLOOD ORDERABLES Final Resul t Performing Organization Address City/[facility]/ZIP Co de Phone Number [facility] [address] [place] [address], * Hemoglobin and hematocrit (05/22/2024 9:12 AM EDT) Pathologist [facility] Hemoglobin 14.1 13.5 - 17.5 g/dL LAB HEMETOLOGY METHOD 05/22/2024 1:02 PM EDT [facility] Hematocrit 43.0 42.0 - 54.0 % LAB HEMETOLOGY METHOD 05/22/2024 1:02 PM EDT [facility] Blood Venous blood specimen / Unknown 05/22/2024 9:12 AM EDT 05/22/2024 12:26 PM EDT us Mookie Bella MD LAB BLOOD ORDERABLES Final Resul t [facility] [address] [place] [address], [place] [phone] * (ABNORMAL) Hepatic function panel (05/22/2024 9:12 AM EDT) Total Protein 6.9 6.0 - 8.0 g/dL LAB CHEMISTRY METHOD 05/22/2024 3:18 PM EDT [facility] Albumin 3.8 3.2 - 5.0 g/dL LAB CHEMISTRY METHOD 05/22/2024 3:18 PM EDT [facility] Total Bilirubin 0.6 0.0 - 1.4 mg/dL LAB CHEMISTRY METHOD 05/22/2024 3:18 PM EDT [facility] Bilirubin, Direct 0.2 0.0 - 0.3 mg/dL LAB CHEMISTRY METHOD 05/22/2024 3:18 PM EDT [facility] Bilirubin, Indirect 0.4 0.0 - 1.1 mg/dL LAB CHEMISTRY METHOD 05/22/2024 3:18 PM T [facility] ALT (SGPT) 30 10 - 60 unit/L LAB CHEMISTRY METHOD 05/22/2024 3:18 PM T [facility] AST (SGOT) 28 10 - 42 unit/L LAB CHEMISTRY METHOD 05/22/2024 3:18 PM T [facility] Alkaline Phosphatase 132(H) 42 - 121 unit/L LAB CHEMISTRY METHOD 05/22/2024 3:18 PM T [facility] Blood Venous blood specimen / Unknown 05/22/2024 9:12 AM EDT 05/22/2024 12:26 PM EDT Mookie Bella MD LAB BLOOD ORDERABLES Final Resul t [facility] [address] [place] [address], * Testosterone, total (05/22/2024 9:12 AM EDT) Testosterone 832 229 - 902 ng/dL LAB CHEMISTRY METHOD 05/22/2024 5:08 PM EDT [facility] Blood Venous blood specimen / Unknown 05/22/2024 9:12 AM EDT 05/22/2024 12:26 PM EDT Mookie Bella MD LAB BLOOD ORDERABLES Final Resul t [facility] ([facility]) [facility] [address] [place] [address], documented in this encounter Visit Diagnoses Diagnosis Testicular hypofunction Other testicular hypofunction Benign prostatic hyperplasia with lower urinary tract symptoms documented in this encounter Care Teams Flat Knitter Helper Relationship Specialty Start Date End Date Jayant Singh NP [address] [place], [place] PCP - General Family Medicine 05/22/24 documented as of this encounter
--- OUTSIDE RECORDS SUMMARY | 2024-10-02 11:11 | XMS_ITS | Patient Health Record ---
Author Organization [facility] [place] Address [address] [facility] [place] [address] Care Team Providers Care Cutter Inspector Name Role Phone Rafael Burch MD Primary Care Provider Amy Wheat Unavailable [phone] Allergies Allergen (clinical drug ingredient) Drug/Non Drug [...] Insured Coverage Start Date Coverage End Date [facility] [address] [facility] [place] klein [address] [id number] Huber Galvin Self - patient is the insured Medical (General) History Medical History History ICD Code Anxiety Depression Sciatica Measles Mumps Chicken pox
--- OUTSIDE RECORDS SUMMARY | 2024-10-02 11:12 | XMS_ITS | Patient Health Record ---
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) Active confirmed Problem Lesion of left plantar nerve (73470138920 9104) Lesion of left plantar nerve (G57.62) Active confirmed Problem Lesion of right plantar nerve (44673757096 9108) Lesion of right plantar nerve (G57.61) Active confirmed Plan Of Treatment Pending Test Test Name Order Date xray: left foot, AP/Lateral, weight bear ing 06/04/2020 xray: right foot, AP/Lateral, weight effie ring 06/04/2020 Insurance Providers Payer Name Payer Address Payer Phone Subscriber Number Group Number Insured Name Patient Relationship to Insured Coverage Start Date Coverage End Date [facility] [address] [place], [place] [id number] Huber Galvin Self - patient is the insured Medical (General) History Medical History History ICD Code Hypertension Back pain Anxiety disorder Left sciatic pain Surgical History Surgery Date(Month/Year) Left foot nerve decompression 2nd and 3r d IM spaces 05/08/2019
== END 2024-10-02 10:47 | disposition home or self-care (01) ==
LOC: HO.HGI 10:14
PROVIDERS: PCP Nurse Practitioner Family; Visit Provider Nurse Practitioner
DX: I35.0 Nonrheumatic aortic (valve) stenosis (principal); Z86.0100 Personal history of colon polyps, unspecified
CPT/HCPCS: 99203

== ENCOUNTER → 2024-10-02 10:13 | Outpatient (BNVA) | payer MEDICARE, SELFPAY | PROVIDERS: PCP Nurse Practitioner Family; Visit Provider Nurse Practitioner | DX: Z01.818 Encounter for other preprocedural examination (principal); I35.0 Nonrheumatic aortic (valve) stenosis; Z86.0100 Personal history of colon polyps, unspecified | CPT/HCPCS: 99202 ==

== ENCOUNTER 2024-11-13 11:01 | Outpatient (REF) | payer MEDICARE, SELFPAY ==
--- OUTSIDE RECORDS SUMMARY | 2024-11-13 13:18 | XMS_ITS | Encounter Summary ---
Author Organization [facility] Address [address] [place] [address] Care Team Providers Care Cloth Seconds Sorter Name Role Phone Jayant Singh NP Primary Care Provider Encounter Details Date Type Department Care Team (Late st Contact Info) Description 05/22/2024 Lab Requisition [facility] - Main Lab [address] [facility] [place] [address] Mookie Bella MD [address] [facility] [address] [place] [address] Testicular hypofunction; Benign prostatic hyperplasia [...] LAB CHEMISTRY METHOD 05/22/2024 2:[address] [facility] Blood Venous blood specimen / Unknown 05/22/2024 9:12 AM EDT 05/22/2024 12:[address] [facility] - 05/22/2024 2:48 PM EDT The Siemens Advia Centaur Chemiluminescent Immunoassay is used. Results obtained with different assay methods or kits cannot be used interchangeably. Results cannot be interpreted as absolute evidence of the presence or absence of malignant disease. us Mookie Bella MD LAB BLOOD ORDERABLES Final Resul t Performing Organization Address City/[facility]/ZIP Co de Phone Number [facility] [address] [place] [address], * Hemoglobin and hematocrit (05/22/2024 9:12 AM EDT) Pathologist [facility] Hemoglobin 14.1 13.5 - 17.5 g/dL LAB HEMETOLOGY METHOD 05/22/2024 1:[address] [facility] Hematocrit 43.0 42.0 - 54.0 % LAB HEMETOLOGY METHOD 05/22/2024 1:[address] [facility] Blood Venous blood specimen / Unknown 05/22/2024 9:12 AM EDT 05/22/2024 12:26 PM EDT us Mookei Bella MD LAB BLOOD ORDERABLES Final Resul t [facility] [address] [place] [address], [place] [phone] * (ABNORMAL) Hepatic function panel (05/22/2024 9:12 AM EDT) Total Protein 6.9 6.0 - 8.0 g/dL LAB CHEMISTRY METHOD 05/22/2024 3:[address] [facility] Albumin 3.8 3.2 - 5.0 g/dL LAB CHEMISTRY METHOD 05/22/2024 3:[address] [facility] Total Bilirubin 0.6 0.0 - 1.4 mg/dL LAB CHEMISTRY METHOD 05/22/2024 3:[address] [facility] Bilirubin, Direct 0.2 0.0 - 0.3 mg/dL LAB CHEMISTRY METHOD 05/22/2024 3:[address] [facility] Bilirubin, Indirect 0.4 0.0 - 1.1 mg/dL LAB CHEMISTRY METHOD 05/22/2024 3:[address] [facility] ALT (SGPT) 30 10 - 60 unit/L LAB CHEMISTRY METHOD 05/22/2024 3:[address] [facility] AST (SGOT) 28 10 - 42 unit/L LAB CHEMISTRY METHOD 05/22/2024 3:[address] [facility] Alkaline Phosphatase 132(H) 42 - 121 unit/L LAB CHEMISTRY METHOD 05/22/2024 3:[address] [facility] Blood Venous blood specimen / Unknown 05/22/2024 9:12 AM EDT 05/22/2024 12:26 PM EDT Mookie Bella MD LAB BLOOD ORDERABLES Final Resul t [facility] [address] [place] [address], * Testosterone, total (05/22/2024 9:12 AM EDT) Testosterone 832 229 - 902 ng/dL LAB CHEMISTRY METHOD 05/22/2024 5:[address] [facility] Blood Venous blood specimen / Unknown 05/22/2024 9:12 AM EDT 05/22/2024 12:26 PM EDT Mookie Bella MD LAB BLOOD ORDERABLES Final Resul t [facility] [address] [place] [address], documented in this encounter Visit Diagnoses Diagnosis Testicular hypofunction Other testicular hypofunction Benign prostatic hyperplasia with lower urinary tract symptoms documented in this encounter Care Teams Cloth Seconds Sorter Relationship Specialty Start Date End Date Jayant Singh NP [address] [place], [place] PCP - General Family Medicine 05/22/24 documented as of this encounter
--- OUTSIDE RECORDS SUMMARY | 2024-11-13 13:20 | XMS_ITS | Patient Health Record ---
Author Organization [facility] Address [address] [place] [address] Care Team Providers Care Abrading Machine Tender Name Role Phone Rafael Burch Primary Care Provider Unavailab benito Joy MD MSc, [facility] Unavailable [phone] Allergies No Known Allergies Reason For Referral No Information Medications Medication SIG (Take, Route, Frequency, Duration) Notes Start Date End Date Status Testosterone 50 MG/5GM (1%) 1 packet to skin in the morning to shoulder, upper arms or abdomen Transdermal Once a day Active HYDROcodone-Acetaminophen 5-325 MG 1-2 tablets as needed Orally every 6 hrs, NTE 5 tabs daily, partial refills on request; Duration: 3 days 12/17/2019 Not-Taking DULoxetine HCl 20 MG 1 capsule Orally On ce a day; Duration: 30 day(s) 07/09/2020 Active Aspirin 81 MG 1 tablet Orally Once a day; Duration: 30 day(s) Active Finasteride 5 MG 1 tablet Orally Once a day; Duration: 30 day(s) Active HYDROcodone-Acetaminophen 5-325 MG 1-2 tablet as needed Orally every 6 hrs. Partial fill per request; Duration: 5 days 02/20/2020 Not-Taking Cephalexin 500 MG as directed Orally 2 caps 1 hr prior to procedure on day 1 On days 2 and 3: 1 cap bid; Duration: 3 days 12/19/2019 Not-Taking ALPRAZolam 0.25 MG as directed Orally 1 tab 1 hr prior to procedure and repeat as needed in 30 minutes; Duration: 1 day 12/19/2019 Not-Taking ALPRAZolam 0.25 MG as directed Orally T lionel 1 tab 1 hour prior to procedure and 1 tab at time of procedure.; Duration: 1 days 02/14/2020 Active Cephalexin 500 MG as directed Orally 2 caps 1 hr before procedure on Day 1 On Days 2 and 3: 1 cap bid; Duration: 3 days 12/12/2019 Not-Taking Pregabalin 50 MG 1 capsule Orally qhs for 1 week, then 1 bid for 1 week then 1 tid; Duration: 30 days 07/15/2020 Active Alprazolam 0.25 MG 1 tablet Orally 1 ho ur before procedure. May repeat once at time of procedure; Duration: 1 day 12/12/2019 Not-Taking Vitamin B12 100 MCG as directed Orally Active CeleBREX 200 MG 1 capsule with food Orally Once a day; Duration: 30 day(s) Not-Taking HYDROcodone-Acetaminophen 5-325 MG 1-2 tablet as needed Orally every 6 hrs. PRN for pain; Duration: 10 days 10/15/2019 Not-Taking Cephalexin 500 MG as directed Orally T lionel 2 caps prior to procedure. Day 2 &3 take 1 cap AM and 1 cap PM; Duration: 3 days 02/14/2020 Not-Taking Gabapentin 100 MG as directed Orally 3 caps qhs for 1 wk then 1 qam and 3 caps qhs for 1 wk , then 1 bid and 3 caps qhs; Duration: 30 day(s) 03/20/2020 Not-Taking ALPRAZolam 0.25 MG as directed Orally T lionel 1 tab 1 hour prior to procedure and 1 tab at time of procedure; Duration: 1 days 10/15/2019 Not-Taking Cephalexin 500 MG as directed Orally T lionel 1 cap 1 hour prior to procedure and 1 cap at time of procedure. Day 2&3 take 1 cap AM and 1 cap PM; Duration: 3 days 10/15/2019 Not-Taking Social History Alcohol [...] Problem Status W/U Status Risk Notes Problem Information temporarily unavailable Lesion of plantar nerve, unspecified lower limb (G57.60) Active confirmed Problem Information temporarily unavailable Lesion of plantar nerve, left lower limb (G57.62) Active confirmed Problem Information temporarily unavailable Lesion of left plantar nerve (G57.62) Active confirmed Problem Information temporarily unavailable Lesion of right plantar nerve (G57.61) Active confirmed Plan Of Treatment Pending Test Test Name Order Date xray: left foot, AP/Lateral, weight bear ing 06/04/2020 xray: right foot, AP/Lateral, weight effie ring 06/04/2020 Insurance Providers Payer Name Payer Address Payer Phone Subscriber Number Group Number Insured Name Patient Relationship to Insured Coverage Start Date Coverage End Date [facility] [address] [place], [place] [id number] [phone] [id number] Huber Galvin Self - patient is the insured Medical (General) History Medical History History ICD Code Hypertension Back pain Anxiety disorder Left sciatic pain Surgical History Surgery Date(Month/Year) Left foot nerve decompression 2nd and 3r d IM spaces 05/08/2019
--- OUTSIDE RECORDS SUMMARY | 2024-11-13 13:20 | XMS_ITS | Clinical Summary ---
Author Organization [address] [facility] Address [address] [place] [address] Phone Care Team Providers Care Filter Press Tender Name Role Phone Jayant Singh NP Primary Care Provider Social History Tobacco Use Types Packs/Day Years [...] Panel) 02/13/2022 Colorectal Cancer Screening: Colonoscopy 02/13/2022 Falls Risk Assessment 02/13/2022 Hepatitis C Screening 02/13/2022 Social Influencers of Health Screening 02/13/2022 Depression Screening 03/13/2024 COVID-19 Vaccine ( - 2023-2 5 season) 2024 Influenza Vaccine (#1) 2024 RSV Immunization Adult Patie nts (1 [...] on patient's age to complete this topic Insurance [facility] Care Teams Filter Press Tender Relationship Specialty Start Date End Date Jayant Singh NP [address] [facility] [place] Cannon PCP - General Family Medicine 05/22/24
[2024-11-13 13:51] LABS: Alanine Aminotransferase 28 U/L (0-40); Albumin Level 4.3 g/dL (3.5-5.0); Alkaline Phosphatase 98 U/L (39-117); Anion Gap 12 (12-20); Aspartate Amino Transferase 36 U/L (5-37); Blood Urea Nitrogen 10 mg/dL (9-16); Calcium 8.8 mg/dL (8.4-10.2); Carbon Dioxide 27 mmol/L (22-29); Chloride 99 mmol/L (96-108); Cholesterol 166 mg/dL (<200); Estimated Glomerular Filt Rate > 60; HDL Cholesterol 76 mg/dL (>40); Potassium 4.6 mmol/L (3.3-5.1); Sodium 133 mmol/L (135-145); Total Protein 7.3 g/dL (6.5-8.0); Triglycerides 45 mg/dL (<150)
== END 2024-11-13 11:02 | disposition home or self-care (01) ==
LOC: HO.HMGCLDS 11:01
PROVIDERS: PCP Nurse Practitioner Family; Visit Provider Nurse Practitioner Family
DX: R94.31 Abnormal electrocardiogram [ECG] [EKG] (principal); E78.5 Hyperlipidemia, unspecified
CPT/HCPCS: 36415; 80053; 80061

== ENCOUNTER → 2024-11-20 09:49 | Outpatient (REF) | payer MEDICARE, SELFPAY ==
--- NOTE | ~2024-11-20 | NM_ITS ---
EXERCISE MYOCARDIAL PERFUSION STUDY INDICATION: Chest pain to evaluate for myocardial ischemia TECHNIQUE: The patient was brought in for an exercise perfusion study on 11/20/2024. Patient performed exercise as per Dima protocol and was injected 25 mCi of sestamibi once target heart rate was achieved. Images were obtained using the SPECT gamma camera interlaced with the gating device. Images were obtained in supine position. Resting perfusion study was performed on 11/21/2024. Patient was administered 25 mCi of sestamibi intravenously at rest. Images were then obtained in supine position. Images obtained without without CT attenuation. Total DLP 59 mGy-cm. Images were processed with the software and compared side to side in short axis, horizontal long axis and vertical long axis views. FINDINGS: Raw images were reviewed The stress perfusion study showed nonattenuated images show mildly reduced uptake in the basal inferior, basal inferolateral and basal lateral wall of the LV myocardium. Remainder of the LV myocardium is normally perfused. Attenuation corrected images show some thinning of the septum with mildly reduced uptake in the distal anterior and apical wall of the LV myocardium.. The gated study shows mildly reduced LV systolic function with calculated LVEF of 49%. LV cavity is moderately to severely dilated in size. The gated study shows normal wall thickening and contraction of segments. Resting study shows no change in perfusion pattern compared to stress perfusion study. Gating at rest reveals no wall motion with ejection fraction at 48%. The findings are consistent with no evidence of myocardial ischemia. NM/NM cardiolite stress test IMPRESSION: 1. Myocardial perfusion imaging study shows no evidence of myocardial ischemia. 2. Gated LVEF is 49%. 3. Transient ischemic dilatation not present but LV cavity is dilated. EKG revealed negative for ischemia. Electronically signed by: Rubén Herron MD 11/21/2024 04:39 PM EDT
--- NOTE | 2024-11-20 09:52 | CA_ITS ---
Acquisition Time: 2024-11-20 10:01:56 Total Exercise Time: 00:05:20 Test Indications: Abnormal ECG Medications: SEE EMAR/PRINT OUT Protocol: EDIE Max HR: 129 BPM 86% of Pred: 150 BPM Max BP: 180/94 mmHG Max Work Load: 6.3 METS Exercise stress test with exercise 5 mins 20 secs of Edie Protocol, at a reduced speed of 2.2mph due to foot issue, achieving 86% MPHR, with reports of mild lightheadedness, no chest pain or SOB, with frequent PACs and isolated PVCs, with normotensive response to exercise. With baseline ST- T waves abnormality in leads 3, aVF, V5 and V6, that became more prominent with exercise. In recovery, pt continued to feel well. Nuclear images pending. Test reviewed with Dr. Herron. Referred By: Rubén Herron Electronically Signed By: Vince De
--- OUTSIDE RECORDS SUMMARY | 2024-11-20 11:47 | XMS_ITS | Patient Health Record ---
Author Organization [facility] Address [address] [place] [address] Care Team Providers Care Car Pusher Name Role Phone Rafael Burch Primary Care Provider Unavailab benito Joy MD MSc, [facility] Unavailable [phone] Allergies No Known Allergies Reason For Referral [...] Status Risk Notes Problem Plantar nerve lesion (366314610) Lesion of plantar nerve, unspecified lower limb (G57.60) Active confirmed Problem Plantar nerve lesion (832153529) Lesion of plantar nerve, left lower limb (G57.62) Active confirmed Problem Lesion of left plantar nerve (72894701309 9104) Lesion of left plantar nerve (G57.62) Active confirmed Problem Lesion of right plantar nerve (42834475585 9108) Lesion of right plantar nerve (G57.61) Active confirmed Plan Of Treatment Pending Test Test Name Order Date xray: left foot, AP/Lateral, weight bear ing 06/04/2020 xray: right foot, AP/Lateral, weight effie ring 06/04/2020 Insurance Providers Payer Name Payer Address Payer Phone Subscriber Number Group Number Insured Name Patient Relationship to Insured Coverage Start Date Coverage End Date [facility] [address] [place], [place] [id number] Huber Galvin Self - patient is the insured Medical (General) History Medical History History ICD Code Hypertension Back pain Anxiety disorder Left sciatic pain Surgical History Surgery Date(Month/Year) Left foot nerve decompression 2nd and 3r d IM spaces 05/08/2019
--- OUTSIDE RECORDS SUMMARY | 2024-11-20 11:47 | XMS_ITS | Patient Health Record ---
Author Organization [facility] [place] Address [address] [facility] [place] [address] Care Team Providers Care Adjunct Physics Instructor Name Role Phone Rafael Burch MD Primary Care Provider Amy Wheat Unavailable [phone] Allergies Allergen (clinical drug ingredient) Drug/Non Drug [...] Insured Coverage Start Date Coverage End Date [facility] [address] [facility] [place]lein [address] [phone] [id number] Huber Galvin Self - patient is the insured Medical (General) History Medical History History ICD Code Anxiety Depression Sciatica Measles Mumps Chicken pox
== END ==
LOC: HO.CARD 09:49
PROVIDERS: PCP Nurse Practitioner Family; Visit Provider Internal Medicine Cardiovascular Disease
DX: R07.9 Chest pain, unspecified (principal); R94.31 Abnormal electrocardiogram [ECG] [EKG]
CPT/HCPCS: 78452; 93017; A9500; J0280; J2785

== ENCOUNTER → 2024-11-20 09:52 | Outpatient (BNV) | payer MEDICARE, SELFPAY | PROVIDERS: PCP Nurse Practitioner Family | DX: R07.9 Chest pain, unspecified (principal) | CPT/HCPCS: 78452; 93016; 93018 ==

== ENCOUNTER 2025-02-12 10:50 | Day surgery (SDC) | payer MEDICARE, SELFPAY ==
--- OUTSIDE RECORDS SUMMARY | 2025-01-07 09:24 | XMS_ITS | Clinical Summary ---
Author Organization [address] [facility] Address [address] [place] [address] Phone Care Team Providers Care Early Education Teacher Name Role Phone Jayant Singh NP Primary Care Provider Social History Tobacco Use Types Packs/Day Years Used Date Smoking Tobacco: Never Assessed Sex and Gender Information Value Date Recorded Sex Assigned at Not on file Legal Sex Male 8:37 AM EST Gender Identity Not on file Sexual Orientation Not on file Plan of Treatment Health Maintenance Due Date Last Done Comments Colorectal Cancer Screening: Colonoscopy 1954 DTaP,Tdap,and Td Vaccines (1 - Tdap) 1973 Pneumococcal Vaccine: 50+ Ye ars (1 of 1 - PCV) 2004 Zoster Vaccines (1 of 2) 2004 Abdominal Aortic Aneurysm (A AA) Screen 02/13/2022 Cholesterol Screening (Lipid Panel) 02/13/2022 Falls Risk Assessment 02/13/2022 Hepatitis C [...] patient's age to complete this topic Insurance [facility] Care Teams Early Education Teacher Relationship Specialty Start Date End Date Jayant Singh NP [address] [facility] SH[place]ANDA Cannon PCP - General Family Medicine 05/22/24
--- OUTSIDE RECORDS SUMMARY | 2025-01-07 09:24 | XMS_ITS | Patient Health Record ---
Author Organization [facility] [place] Address [address] [facility] [place] [address] Care Team Providers Care Motor Installer Name Role Phone Rafael Burch MD Primary Care Provider Amy Wheat Unavailable [phone] Allergies Allergen (clinical drug ingredient) Drug/Non Drug [...] Start Date Coverage End Date [facility] [address] [facility] [place] [address] [id number] Huber Galvin Self - patient is the insured Medical (General) History Medical History History ICD Code Anxiety Depression Sciatica Measles Mumps Chicken pox
--- OUTSIDE RECORDS SUMMARY | 2025-01-07 09:24 | XMS_ITS | Patient Health Record ---
Author Organization [facility] Address [address] [place] [address] Care Team Providers Care Boat Tester Name Role Phone Rafael Burch Primary Care Provider Unavailab benito Joy MD MSc, [facility] Unavailable [phone] Allergies No Known Allergies Reason For Referral [...] Status Risk Notes Problem Plantar nerve lesion (042712480) Lesion of plantar nerve, unspecified lower limb (G57.60) Active confirmed Problem Plantar nerve lesion (224644368) Lesion of plantar nerve, left lower limb (G57.62) Active confirmed Problem Lesion of left plantar nerve (04558114569 9104) Lesion of left plantar nerve (G57.62) Active confirmed Problem Lesion of right plantar nerve (12503640602 9108) Lesion of right plantar nerve (G57.61) Active confirmed Plan Of Treatment Pending Test Test Name Order Date xray: left foot, AP/Lateral, weight bear ing 06/04/2020 xray: right foot, AP/Lateral, weight effie ring 06/04/2020 Insurance Providers Payer Name Payer Address Payer Phone Subscriber Number Group Number Insured Name Patient Relationship to Insured Coverage Start Date Coverage End Date [facility] [address] [place], [place] [id number] Huber Galvin Self - patient is the insured Medical (General) History Medical History History ICD Code Hypertension Back pain Anxiety disorder Left sciatic pain Surgical History Surgery Date(Month/Year) Left foot nerve decompression 2nd and 3r d IM spaces 05/08/2019
--- OUTSIDE RECORDS SUMMARY | 2025-01-07 09:24 | XMS_ITS | Encounter Summary ---
Author Organization [facility] Address [address] [place] [address] Care Team Providers Care Quill Machine Operator Name Role Phone Jayant Singh NP Primary Care Provider Encounter Details Date Type Department Care Team (Late st Contact Info) Description 05/22/2024 Lab Requisition [facility] - Main Lab [address] [facility] [place] [address] Mookie Bella MD [address] [facility] [address] [place] [address] Testicular hypofunction; Benign prostatic hyperplasia [...] LAB CHEMISTRY METHOD 05/22/2024 2:48 PM EDT [facility] Blood Venous blood specimen / Unknown 05/22/2024 9:12 AM EDT 05/22/2024 12:26 PM EDT Narrative [facility] - 05/22/2024 2:48 PM EDT The Siemens Advia Centaur Chemiluminescent Immunoassay is used. Results obtained with different assay methods or kits cannot be used interchangeably. Results cannot be interpreted as absolute evidence of the presence or absence of malignant disease. us Mookie Bella MD LAB BLOOD ORDERABLES Final Resul t Performing Organization Address City/[facility]/ZIP Co de Phone Number [facility] [address] [place] [address], * Hemoglobin and hematocrit (05/22/2024 9:12 AM EDT) Pathologist [facility] Hemoglobin 14.1 13.5 - 17.5 g/dL LAB HEMETOLOGY METHOD 05/22/2024 1:02 PM EDT [facility] Hematocrit 43.0 42.0 - 54.0 % LAB HEMETOLOGY METHOD 05/22/2024 1:02 PM EDT [facility] Blood Venous blood specimen / Unknown 05/22/2024 9:12 AM EDT 05/22/2024 12:26 PM EDT us Mookie Bella MD LAB BLOOD ORDERABLES Final Resul t [facility] [address] [place] [address], [place] [phone] * (ABNORMAL) Hepatic function panel (05/22/2024 9:12 AM EDT) Total Protein 6.9 6.0 - 8.0 g/dL LAB CHEMISTRY METHOD 05/22/2024 3:18 PM EDT [facility] Albumin 3.8 3.2 - 5.0 g/dL LAB CHEMISTRY METHOD 05/22/2024 3:18 PM EDT [facility] Total Bilirubin 0.6 0.0 - 1.4 mg/dL LAB CHEMISTRY METHOD 05/22/2024 3:18 PM EDT [facility] Bilirubin, Direct 0.2 0.0 - 0.3 mg/dL LAB CHEMISTRY METHOD 05/22/2024 3:18 PM EDT [facility] Bilirubin, Indirect 0.4 0.0 - 1.1 mg/dL LAB CHEMISTRY METHOD 05/22/2024 3:18 PM T [facility] ALT (SGPT) 30 10 - 60 unit/L LAB CHEMISTRY METHOD 05/22/2024 3:18 PM T [facility] AST (SGOT) 28 10 - 42 unit/L LAB CHEMISTRY METHOD 05/22/2024 3:18 PM T [facility] Alkaline Phosphatase 132(H) 42 - 121 unit/L LAB CHEMISTRY METHOD 05/22/2024 3:18 PM T [facility] Blood Venous blood specimen / Unknown 05/22/2024 9:12 AM EDT 05/22/2024 12:26 PM EDT Mookie Bella MD LAB BLOOD ORDERABLES Final Resul t [facility] [address] [place] [address], * Testosterone, total (05/22/2024 9:12 AM EDT) Testosterone 832 229 - 902 ng/dL LAB CHEMISTRY METHOD 05/22/2024 5:08 PM EDT [facility] Blood Venous blood specimen / Unknown 05/22/2024 9:12 AM EDT 05/22/2024 12:26 PM EDT Mookie Bella MD LAB BLOOD ORDERABLES Final Resul t [facility] [address] [place] [address], documented in this encounter Visit Diagnoses Diagnosis Testicular hypofunction Other testicular hypofunction Benign prostatic hyperplasia with lower urinary tract symptoms documented in this encounter Care Teams Quill Machine Operator Relationship Specialty Start Date End Date Jayant Singh NP [address] [place], [place] PCP - General Family Medicine 05/22/24 documented as of this encounter
--- NOTE | 2025-02-10 10:46 | P.CONAN_ITS ---
Documented by User: Glenda Osman NP 02/10/25 10:50 HPI - Anesthesia Eval Consult details Narrative: 69yo M for Colonoscopy Follows [facility] for abn EKG (nml nuc stress) and mild . Stable at 09/2024 office visit with great exercise tolerance - plan 1 year office f/u and 2 year echo f/u [facility] Active Problems Active Problems: All Active Problems Pre-op examination (Acute) Dyslipidemia (Acute) Abnormal EKG (Acute) Nicotine dependence, cigarettes, uncomplicated (Acute) Trigger thumb, left thumb (Acute) Carpal tunnel syndrome of left wrist (Acute) Anemia (Acute) Numbness and tingling in left hand (Acute) Carpal tunnel syndrome of right wrist (Acute) Cervical spine fracture (Acute) Bilateral hand numbness (Acute) Distal radius fracture, left (Acute) Aortic stenosis (Acute) Cervical pain (neck) (Acute) Fall (Acute) Murmur (Acute) Leukopenia (Acute) DDD (degenerative disc disease), cervical (Acute) Back pain (Acute) Spasm of cervical paraspinous muscle (Acute) CRPS (complex regional pain syndrome), lower limb (Acute) Neuritis of foot (Acute) Past Medical History Medical History Screening for colon cancer Leukopenia Nicotine dependence, cigarettes, uncomplicated BPH (benign prostatic hyperplasia) Aortic regurgitation Aortic stenosis Anterolisthesis of cervical spine COVID-19 vaccine series completed History of testicular cancer CRPS (complex regional pain syndrome), lower limb Neuritis of foot Left-sided low back pain with sciatica Anxiety disorder Back pain Surgical History Surgical History History of esophagogastroduodenoscopy (EGD) (~2019) History of colonoscopy (~2019) History of orchiectomy History of Problems with Anesthesia: No Social History Social History Household Members: None Housing: House Are you a primary hospice care sales consultant to a significant other at home: No Do you presently have visiting nurse or other home services: No Alcohol intake: current Alcohol intake frequency: a few times a month Patient Tobacco Use Status: Current everyday Tobacco user Tobacco use type: Cigarette Years Smoked: 52 e-Cigarette/Vaping Use: Currently Using Second Hand Smoke Exposure: No Advance Directives: No Advance Directives Information Provided: Yes service: No Current occupational status: retired and disabled Cognitive needs: No Hearing needs: No Vision needs: No Meds Allergies Allergy/AdvReac Type Severity Reaction Status Date / Time No Known Allergies (No Known Allergy Verified 02/12/25 11:25 Allergies*) Home Medications ?Medication ?Instructions ?Recorded ?Confirmed ?Last Taken ?Type finasteride 5 mg tablet 5 mg PO DAILY 09/04/2002/1201/01/24 History testosterone 50 mg/5 gram (1 %) 50 mg transdermal AAKASH Y 09/04/20 02/12/25 Unknown History transdermal gel multivitamin (Daily Multi-Vitamin 1 tab PO DAILY 03/3002/12/25 03/04/24 History tablet) amitriptyline 75 mg tablet 50 mg PO BEDTIME 09/10/24 1 04/15/24 Unknown History melatonin 5 mg capsule 5 mg PO 10/02/24 Unknown Hi story Exam Narrative Narrative: EKG 09/2024 Details: EKG shows normal sinus rhythm with PVC with ST-depression in inferior leads which could represent ischemia with nonspecific ST-T changes in the lateral lead incomplete right bundle-branch block NM cardiolite stress test 11/2024 IMPRESSION: 1. Myocardial perfusion imaging study shows no evidence of myocardial ischemia. 2. Gated LVEF is 49%. 3. Transient ischemic dilatation not present but LV cavity is dilated. EKG revealed negative for ischemia. ECHO 04/2024 Conclusions: - 1. Low normal LV ejection fraction 50-55% with impaired relaxation filling pattern 2. Mildly dilated left atrium 3. Mild aortic stenosis and regurgitation 4. Mild mitral regurgitation 5. Normal RV systolic pressure 6. No gross pericardial effusion AoV Pk Grad: 11.00 Aov Mn Grad: 6.00 AYAH Cont.VTI: 1.51 Assessment and Plan Assessment Anesthesia Assessment: Chart Reviewed Final Anesthetic Review History of Problems with Anesthesia: No Documented by User: Cindy Daily MD 02/12/25 11:54 [facility] Past Medical History Medical History Screening for colon cancer Leukopenia Nicotine dependence, cigarettes, uncomplicated BPH (benign prostatic hyperplasia) Aortic regurgitation Aortic stenosis Anterolisthesis of cervical spine COVID-19 vaccine series completed History of testicular cancer CRPS (complex regional pain syndrome), lower limb Neuritis of foot Left-sided low back pain with sciatica Anxiety disorder Back pain Family History Family history of problems with anesthesia: No Surgical History Surgical History History of esophagogastroduodenoscopy (EGD) (~2019) History of colonoscopy (~2019) History of orchiectomy Social History Social History Household Members: None Housing: House Are you a primary hospice care sales consultant to a significant other at home: No Do you presently have visiting nurse or other home services: No Alcohol intake: current Alcohol intake frequency: a few times a month Patient Tobacco Use Status: Current everyday Tobacco user Tobacco use type: Cigarette Years Smoked: 52 e-Cigarette/Vaping Use: Currently Using Second Hand Smoke Exposure: No Advance Directives: No Advance Directives Information Provided: Yes service: No Current occupational status: retired and disabled Cognitive needs: No Hearing needs: No Vision needs: No Meds Allergies Allergy/AdvReac Type Severity Reaction Status Date / Time No Known Allergies (No Known Allergy Verified 02/12/25 11:25 Allergies*) Home Medications ?Medication ?Instructions ?Recorded ?Confirmed ?Last Taken ?Type finasteride 5 mg tablet 5 mg PO DAILY 09/04/2002/1201/01/24 History testosterone 50 mg/5 gram (1 %) 50 mg transdermal AAKASH Y 09/04/20 02/12/25 Unknown History transdermal gel multivitamin (Daily Multi-Vitamin 1 tab PO DAILY 03/3002/12/25 03/04/24 History tablet) amitriptyline 75 mg tablet 50 mg PO BEDTIME 09/10/24 1 04/15/24 Unknown History melatonin 5 mg capsule 5 mg PO 10/02/24 Unknown Hi story Exam Airway Mallampati Class: II (one implant top right) TM Dist: >3cm Neck ROM: Full Heart: rrr Lungs: cta Assessment and Plan Final Anesthetic Review Family History of Problems with Anesthesia: No NPO: Yes ASA Class: II Final Preanesthetic Review: No Changes in Pt Med Stat, Meds/Allgs Chart Reviewed and Consent Obtained/Reviewed Patient Risk: Low Procedure Risk: Low Anesthetic Plan Anesthetic Plan: MAC: Disposition: Standard PACU
[2025-02-12 11:18] VITALS: BMI 19.7
[2025-02-12 11:31] VITALS: BP 158/75; PULSE 79; RESP 16; TEMP 36.7; O2SAT 100
[2025-02-12] MEDS: Lactated Ringers 1,000 ML 100 ML IVCONT (11:42)
--- NOTE | 2025-02-12 11:52 | P.HPSUR_ITS ---
Pre-Procedural Eval Section A - 24 Hr Update-Section A only Date of Service: 02/12/25 Section B - Complete if H&P > 30 days Chief Complaint: Family history of colon polyps, unspecified Relevant Family History (Specify if Yes): Yes Relevant Social History: Tobacco Use Present Medications: see Short Stay Collaborative assessment Medical History: Significant History (Screening for colon cancer Leukopenia Nicotine dependence, cigarettes, uncomplicated BPH (benign prostatic hyperplasia) Aortic regurgitation Aortic stenosis Anterolisthesis of cervical spine COVID-19 vaccine series completed History of testicular cancer CRPS (complex regional pain syndrome), lower l) History of Previous Operations: Relevant previous surgery/procedure and date(s) (History of esophagogastroduodenoscopy (EGD) (~2019) History of colonoscopy (~2019) History of orchiectomy) Allergies: Allergies Allergy/AdvReac Type Severity Reaction Status Date / Time No Known Allergies (No Known Allergy Verified 02/12/25 11:25 Allergies*) Review of Systems Sugical H&P ROS: Negative: Constitution, Cardiovascular, Respiratory, Neurological, Psychiatric, Hem-Onc, Allergic/Immunologic, Gastrointestinal, Genitourinary, Musculoskeletal, Integumentary, Endocrine and Eyes/Ears/Nose/Th roat Exam Surgical H&P Exam: Normal: HEENT, Normal: Heart, Normal: Lungs, Normal: Extremities, Normal: Abdomen, Normal: Skin and Normal: Neurological Plan Diagnosis/Plan: Unchanged I have reviewed the history and physical and performed a pertinent physical examination on my patient. No changes have occurred unless specified. Time Spent With Patient Time: Total time managing care of this patient today ____ minutes.
--- NOTE | 2025-02-12 12:27 | HO.OPN-COLON ---
Colonoscopy Operative Note Operative Note Date of Service: 02/12/25 Narrative: Operative Information Procedure Description: Colonoscopy Indication: screening Anesthesia: MAC COLONOSCOPY Instrument: Olympus variable stiffness pediatric scope 190L Colonoscopy Monitoring: Vital signs and clinical assessment, continuous EKG monitoring, Pulse oximetry, Carbon Dioxide monitoring and blood pressure monitoring were done throughout the procedure. Colon withdrawal time was 10 minutes. Procedure: The patient was placed in the left lateral decubitis position and pre-procedure medications were administered. After a digital rectal examination of the ano-rectum, the video colonoscope was inserted into the rectum and advanced through the colon to the cecum/TI. The colonoscope was slowly withdrawn in a retrograde panoramic fashion and the colon mucosa was carefully examined including a retroflexed view of the rectum. Findings and interventions are described below. Procedure Difficulty: moderate, tight angles Findings: Terminal Ileum-normal Cecum:normal Ascending Colon: normal Transverse Colon -normal Descending Colon: 10 mm sessile polyp removed wtih cold snare Sigmoid Colon: moderate diverticulosis Rectum: Retroflexion with small internal hemorrhoids seen, grade I Anorectum - normal Intervention: cold snare Colon preparation: Monroe Bowel Preparation Scale Right colon; 1-2 Transverse colon: 2 Left colon; 2 (0 = Unprepared colon segment with mucosa not seen due to solid stool that cannot be cleared. 1 = Portion of mucosa of the colon segment seen, but other areas of the colon segment not well seen due to staining, residual stool and/or opaque liquid. 2 = Minor amount of residual staining, small fragments of stool and/or opaque liquid, but mucosa of colon segment seen well. 3 = Entire mucosa of colon segment seen well with no residual staining, small fragments of stool or opaque liquid) Impression and Post Procedure Diagnosis: diverticulosis colon polyp x 1 internal hemorrhoids Plan: High fiber diet leaflet Avoid straining at stool, epsom salts and sitz bath, anusol supps or cream Repeat Colonoscopy in 5 years due to areas of fair prep on the right or earlier if clinically indicated Above findings were reviewed with the patient and relevant handouts were provided if indicated.
[2025-02-12 12:30] VITALS: BP 124/58; PULSE 87; RESP 16; TEMP 36.4; O2SAT 96
[2025-02-12 12:45] VITALS: BP 148/66; PULSE 54; RESP 16; O2SAT 100
[2025-02-12 13:00] VITALS: BP 150/70; PULSE 56; RESP 16; TEMP 36.1; O2SAT 99
== END 2025-02-12 13:23 | disposition home or self-care (01) ==
PROVIDERS: PCP Nurse Practitioner Family; Visit Provider Internal Medicine Gastroenterology
PROC: 0DJD8ZZ Inspection of Lower Intestinal Tract, Via Natural or Artificial Opening Endoscopic (ICD-10-PCS; CPT 45378; principal; 2025-02-12 14:20)
DX: Z12.11 Encounter for screening for malignant neoplasm of colon (principal); Z83.719 Family history of colon polyps, unspecified; Z86.0109 Personal history of other colon polyps; K57.30 Diverticulosis of large intestine without perforation or abscess without bleeding; K64.0 First degree hemorrhoids; D12.4 Benign neoplasm of descending colon
CPT/HCPCS: 45385; 88305; J2003; J2704

== ENCOUNTER → 2025-02-12 10:50 | Outpatient (BNV) | payer MEDICARE, SELFPAY | PROVIDERS: PCP Nurse Practitioner Family; Visit Provider Internal Medicine Gastroenterology | DX: Z12.11 Encounter for screening for malignant neoplasm of colon (principal); K63.5 Polyp of colon; K57.30 Diverticulosis of large intestine without perforation or abscess without bleeding; K64.0 First degree hemorrhoids | CPT/HCPCS: 45385 ==